=== PATIENT | male | born 1950 | race Caucasian/White ===

== ENCOUNTER 2016-11-06 23:39 | Observation (INO) | payer OTHER ==
[~2016-11-06] VITALS: Ht 185.4 cm; Wt 91.6 kg
[2016-11-06] MEDS ORDERED: MoRPHine SULFATE 2 MG/ML CARP IV STA (23:55)
[2016-11-06] MEDS ORDERED: ONDANSETRON INJ 2 MG/ML 2 ML VIAL IV STA (23:55)
[2016-11-06] MEDS ORDERED: ASPIRIN 81 MG CHEW PO STA (23:55)
--- NOTE | 2016-11-07 | EMERGENCY ROOM VISIT NOTE ---
History Report prepared by Tico: Jovanny Teague Under the Supervision of: Dr. Leonila Franks M.D. First contact with patient: 23:43 Chief Complaint: CHEST PAIN Stated Complaint: CHEST PAIN/IRRG HEARTBEAT Nursing Triage Summary: . History of Present Illness The patient is a 65 year old male who presents to the Emergency Room with complaints of constant chest pain that started tonight at approximately 2000- 2100. The pain is in the center of his chest and is sharp in nature. The pain did not respond to nitroglycerin. He did not have any aspirin today. He also complains of palpitations. The patient has a history of significant coronary artery disease. He relates his pain to angina. The patient has two coronary stents. The patient follows up with a frame gate mortiser operator who he saw earlier this week. He is in town for the week. The patient is not diabetic and is not a smoker. The patient denies shortness of breath. He is not currently on a beta octavio, he was taken off of it this week. Source of History: patient Onset: tonight Position: chest Quality: sharp Timing: constant Modifying Factors (Worsening): other (No relief from nitroglycerin) Associated Symptoms: No SOB Review of Systems See HPI for pertinent positives & negatives. A total of 10 systems reviewed and were otherwise negative. Past Medical & Surgical Medical Problems: (1) CAD (coronary artery disease) Surgical Problems: (1) Stented coronary artery Family History No pertinent family history Social History Smoking Status: Never Smoker Marital Status: Housing Status: lives with family Occupation Status: retired Current/Historical Medications Scheduled Aspirin (Aspirin Ec), 81 MG PO DAILY Atorvastatin (Lipitor), 80 MG PO DAILY Coenzyme Q10 (Ubidecarenone) (Co Q-10), 100 MG PO DAILY Fish Oil ([place]-3), 2 CAP PO DAILY Folic Acid (Folvite), 1 MG PO DAILY Glucosamine Sulfate (Glucosamine), 2,000 MG PO DAILYBB Glucosamine-Chondroitin (Osteo Bi-Flex Regular Str), 1 TAB PO DAILY Lisinopril (Prinivil), 40 MG PO DAILY Multiple Vitamin (Multi Vitamin), 1 TAB PO DAILY Ticagrelor (Brilinta), 90 MG PO BID Scheduled PRN Nitroglycerin (Nitrostat), 0.4 MG UT UD PRN for Chest Pain Allergies Coded Allergies: No Known Allergies (Unverified , 2/26/17) Physical Exam Vital Signs Date Time Temp Pulse Resp B/P Pulse Ox O2 Delivery O2 Flow Rate FiO2 11/07/16 01:45 58 16 133/81 100 Room Air 11/07/16 00:03 81 11/06/16 23:52 98 Room Air 11/06/16 23:41 36.8 90 18 169/97 97 Room Air Physical Exam Vital signs reviewed. General: Well-appearing male, in no significant distress. HEENT: No scleral icterus, PERRLA, neck supple. Atraumatic. Cardiovascular: Regular rate and rhythm, no extra sounds. Pulmonary: Clear to auscultation bilaterally, normal work of breathing. Abdomen: Soft, nontender, nondistended, positive bowel sounds. Musculoskeletal: Atraumatic, no peripheral edema. Neurologic: Patient awake alert and oriented x 3, full strength in all 4 extremities. Cranial nerves 2 through 12 grossly intact. Skin: Warm, dry, no rash Medical Decision & Procedures ER Provider Diagnostic Interpretation: X-ray results as stated below per interpretation by me. Negative Chest X-ray. CHEST ONE VIEW PORTABLE HISTORY: Atypical chest pain COMPARISON: None. FINDINGS: No pneumothorax. No pleural effusions. The heart is normal in size. The upper lung zones are clear. Bibasilar interstitial thickening with patchy densities within the left lung base. Peripheral linear densities within the right lower lung zone which may represent scarring. IMPRESSION: Bibasilar interstitial thickening with patchy densities within the left lung base. This could be chronic or due to an atypical pneumonitis. Electronically signed by: Anjel Medina M.D. 11/07/2016 7:17 AM Dictated Date/Time: 11/07/2016 7:15 AM Laboratory Results 11/06/16 00:15 Red Blood Count 4.26, Mean Corpuscular Volume 88.3, Mean Corpuscular Hemoglobin 30.5, Mean Corpuscular Hemoglobin Concent 34.6, Mean Platelet Volume 9.0, Neutrophils (%) (Auto) 55.1, Lymphocytes (%) (Auto) 29.9, Monocytes (%) (Auto) 10.2, Eosinophils (%) (Auto) 4.2, Basophils (%) (Auto) 0.4, Neutrophils # (Auto ) 2.75, Lymphocytes # (Auto) 1.49, Monocytes # (Auto) 0.51, Eosinophils # (Auto ) 0.21, Basophils # (Auto) 0.02 11/06/16 00:15 Test 11/06/16 00:15 11/07/16 00:22 White Blood Count 4.99 K/uL (4.8-10.8) Red Blood Count 4.26 M/uL (4.7-6.1) Hemoglobin 13.0 g/dL (14.0-18.0) Hematocrit 37.6 % (42-52) Mean Corpuscular Volume 88.3 fL (80-100) Mean Corpuscular Hemoglobin 30.5 pg (25-34) Mean Corpuscular Hemoglobin Concent 34.6 g/dl (32-36) Platelet Count 243 K/uL (130-400) Mean Platelet Volume 9.0 fL (7.4-10.4) Neutrophils (%) (Auto) 55.1 % Lymphocytes (%) (Auto) 29.9 % Monocytes (%) (Auto) 10.2 % Eosinophils (%) (Auto) 4.2 % Basophils (%) (Auto) 0.4 % Neutrophils # (Auto) 2.75 K/uL (1.4-6.5) Lymphocytes # (Auto) 1.49 K/uL (1.2-3.4) Monocytes # (Auto) 0.51 K/uL (0.11-0.59) Eosinophils # (Auto) 0.21 K/uL (0-0.5) Basophils # (Auto) 0.02 K/uL (0-0.2) RDW Standard Deviation 40.2 fL (36.4-46.3) RDW Coefficient of Variation 12.5 % (11.5-14.5) Immature Granulocyte % (Auto) 0.2 % Immature Granulocyte # (Auto) 0.01 K/uL (0.00-0.02) Anion Gap 10.0 mmol/L (3-11) Est Creatinine Clear Calc Drug Dose 85.4 ml/min Estimated GFR () 92.4 Estimated GFR (Non- 79.7 BUN/Creatinine Ratio 21.0 (10-20) Calcium Level 8.5 mg/dl (8.5-10.1) Total Bilirubin 0.3 mg/dl (0.2-1) Direct Bilirubin < 0.1 mg/dl (0-0.2) Aspartate Amino Transf (AST/SGOT) 37 U/L (15-37) Alanine Aminotransferase (ALT/SGPT) 37 U/L (12-78) Alkaline Phosphatase 46 U/L (45-117) Total Protein 6.7 gm/dl (6.4-8.2) Albumin 3.7 gm/dl (3.4-5.0) Bedside Troponin I 0.000 ng/ml (0-0.045) Laboratory results per my review. Medications Administered Medications (Trade) Dose Ordered Sig/Ruben Route Start Time Stop Time Status Last Admin Dose Admin Aspirin (Aspirin Chew) 324 mg NOW STAT PO 11/06/16 23:55 11/06/16 23:57 DC 11/06/16 23:55 324 MG Morphine Sulfate (MoRPHine SULFATE INJ) 2 mg NOW STAT IV 11/06/16 23:55 11/06/16 23:57 DC 11/07/16 00:18 2 MG Ondansetron HCl (Zofran Inj) 4 mg NOW STAT IV 11/06/16 23:55 11/06/16 23:57 DC 11/07/16 00:18 4 MG ECG Indication: chest pain Rate (beats per minute): 73 Rhythm: sinus with SA Findings: no acute ischemic change, no ectopy ED Course 2354: Past medical records reviewed. The patient was evaluated in room B9. A complete history and physical examination was performed. 2355: Zofran 4 mg IV, Morphine Sulfate 2 mg IV, Aspirin 324 mg PO. 0030: Spoke with Dr. Davis, [facility] Hospitalist. The patient will be evaluated. Medical Decision Differential diagnosis: Acute coronary syndrome, pulmonary embolus, aortic dissection, musculoskeletal pain, pneumonia, pleural effusion, pneumothorax This patient was evaluated and appeared to be in no significant distress. Patient was given aspirin to chew. IV access was obtained and laboratory work was drawn. The patient was placed on the cardiac surgeon. EKG was performed and reveals a sinus rhythm with sinus arrhythmia. There is no evidence of acute ischemic change. Laboratory work reveals a negative troponin. I suspect the patient is feeling palpitations secondary to recent discontinuation of beta blockers. Patient has significant coronary disease and recurrent anginal symptoms. Because of this history, patient will be evaluated by the hospitalist service for further cardiac evaluation. Patient is aware of the plan and agrees. Consults Time Called: 0020 Consulting Physician: Dr. Davis, [facility]. Returned Call: 29 29: Spoke with Dr. Davis, [facility]. The patient will be evaluated. Impression Primary Impression: Precordial chest pain Scribe Attestation The scribe's documentation has been prepared under my direction and personally reviewed by me in its entirety. I confirm that the note above accurately reflects all work, treatment, procedures, and medical decision making performed by me. Departure Information Dispostion Being Evaluated By Hospitalist Referrals No Doctor, Assigned (PCP) Patient Instructions My [facility]
[2016-11-07 00:28] LABS: BASO % 0.4 %; BASO ABS # 0.02 K/uL (0-0.2); COMPLETE YES; EOS % 4.2 %; HEMATOCRIT 37.6 % (42-52); IG% 0.2 %; LYMPH % 29.9 %; LYMPH ABS # 1.49 K/uL (1.2-3.4); MEAN CELL VOLUME 88.3 fL (80-100); MEAN CORPUSCULAR HEMOGLOBIN 30.5 pg (25-34); MEAN CORPUSCULAR HGB CONC 34.6 g/dl (32-36); MONO % 10.2 %; NEUT % 55.1 %; PLATELET COUNT 243 K/uL (130-400); RED BLOOD COUNT 4.26 M/uL (4.7-6.1); WHITE BLOOD COUNT 4.99 K/uL (4.8-10.8)
[2016-11-07] MEDS ORDERED: LISI40TA PO (00:31)
[2016-11-07] MEDS ORDERED: ATOR-26 PO (00:31)
[2016-11-07] MEDS ORDERED: GLUCTAB18 PO (00:31)
[2016-11-07] MEDS ORDERED: MULT-1027 PO (00:31)
[2016-11-07] MEDS ORDERED: GLUC10007 PO (00:31)
[2016-11-07] MEDS ORDERED: ASPI81TA28 PO (00:31)
[2016-11-07] MEDS ORDERED: TICA1TAB PO (00:31)
[2016-11-07] MEDS ORDERED: FOLI1TAB7 PO (00:32)
[2016-11-07] MEDS ORDERED: OMEG10007 PO (00:32)
[2016-11-07] MEDS ORDERED: COEN150C PO (00:32)
[2016-11-07] MEDS ORDERED: COEN100C3 PO (00:33)
[2016-11-07] MEDS ORDERED: NTRGSL/4 UT (00:33)
[2016-11-07 00:46] LABS: ALT/SGPT 37 U/L (12-78); AST/SGOT 37 U/L (15-37); BLOOD UREA NITROGEN 21 mg/dl (7-18); CALCIUM 8.5 mg/dl (8.5-10.1); CARBON DIOXIDE 29 mmol/L (21-32); CHLORIDE 104 mmol/L (98-107); GLUCOSE 110 mg/dl (70-99); POTASSIUM 3.8 mmol/L (3.5-5.1); SODIUM 143 mmol/L (136-145)
[2016-11-07 00:50] LABS: ALKALINE PHOSPHATASE 46 U/L (45-117); CKMB/CK RATIO 0.8 (0-3.0)
[2016-11-07] MEDS ORDERED: ZOLPIDEM TARTRATE 5 MG TAB PO PRN (02:15)
[2016-11-07] MEDS ORDERED: NITROGLYCERIN 0.4 MG SL PER TAB CHARGE SL PRN (02:15)
[2016-11-07] MEDS ORDERED: ONDANSETRON INJ 2 MG/ML 2 ML VIAL IV PRN (02:15)
[2016-11-07] MEDS ORDERED: ACETAMINOPHEN 325 MG TAB PO PRN (02:15)
[2016-11-07] MEDS ORDERED: IV FLUIDS COMPLETED PRN (02:30)
[2016-11-07 03:31] LABS: CKMB/CK RATIO 0.8 (0-3.0)
[2016-11-07 03:32] VITALS: BP 128/71; PULSE 63; TEMP 36.8; O2SAT 94; Ht 185.4 cm; Wt 91.6 kg
--- NOTE | 2016-11-07 03:37 | History and Physical ---
History & Physical Date & Time of Service: Nov 07, 2016 at 03:20 Chief Complaint: Chest Pain/Irrg Heartbeat Primary Care Physician: No Doctor, Assigned History of Present Illness Source: patient, spouse The patient is a 65-year-old male resident of [facility], who presents to the emergency department with complaint of constant precordial chest pain that worsened tonight around 2000- 2100 hrs. He did try to take 3 sublingual nitroglycerin without any significant improvement. He has a known history of NM , with coronary artery stents placed in 2008. His most recent catheterization was in 2014 during which he had a plaque break off and induce an NM. He has been on Ranexa in the past and most recently Brilinta. He went to see his administrative aide 5 days ago due to chest pain, and at that time his bisoprolol 2.5 mg was stopped, and his lisinopril was increased from 15-40 mg daily. He reports that his chest pain today has been more prolonged, and is the reason for his visit to the emergency department. He does walk regularly with his , and reports walking 3 miles today, and did not have any chest pain or shortness of breath. He was diagnosed with reflux via endoscopy when he lived in the [facility] [place] years ago, and reports that he was on Prilosec at that time, which he did not tolerate well, and has not been on any medication since that time. He admits to drinking a full pot of coffee daily, and reports that his water intake is very low. He has never been on any long acting nitroglycerin. His most recent stress test was this past summer and reports that it was normal. Past Medical/Surgical History Medical Problems: (1) CAD (coronary artery disease) Status: Chronic Family History No pertinent family history Social History Smoking Status: Never Smoker Smokeless Tobacco Use: No Alcohol Use: none Drug Use: none Marital Status: Housing status: lives with family Multi-Drug Resistant Organisms History of MDRO: No Allergies Coded Allergies: No Known Allergies (Unverified , 11/07/16) Home Medications Scheduled Aspirin (Aspirin Ec), 81 MG PO DAILY Atorvastatin (Lipitor), 80 MG PO DAILY Coenzyme Q10 (Ubidecarenone) (Co Q-10), 100 MG PO DAILY Fish Oil ([place]-3), 2 CAP PO DAILY Folic Acid (Folvite), 1 MG PO DAILY Glucosamine Sulfate (Glucosamine), 2,000 MG PO DAILYBB Glucosamine-Chondroitin (Osteo Bi-Flex Regular Str), 1 TAB PO DAILY Lisinopril (Prinivil), 40 MG PO DAILY Multiple Vitamin (Multi Vitamin), 1 TAB PO DAILY Ticagrelor (Brilinta), 90 MG PO BID Scheduled PRN Nitroglycerin (Nitrostat), 0.4 MG UT UD PRN for Chest Pain Review of Systems The patient denies cough, lower extremity swelling, vision change, hearing change, sore throat, fevers, chills, sweats, weight change, fatigue, nausea, vomiting, abdominal pain, pelvic pain, blood in urine or stool, dysuria, urinary frequency or urgency, lightheadedness, dizziness, headache, memory loss , rash, abnormal bruising or bleeding, imbalance, focal or generalized weakness , numbness or tingling in arms or legs, arthralgias or myalgias, back or neck pain, night sweats, or allergy symptoms. The review of systems is otherwise negative other than for that already noted above, and at least 10 systems have been reviewed. Physical Exam Vital Signs Date Time Temp Pulse Resp B/P Pulse Ox O2 Delivery O2 Flow Rate FiO2 11/07/16 01:45 58 16 133/81 100 Room Air 11/07/16 00:03 81 11/06/16 23:52 98 Room Air 11/06/16 23:41 36.8 90 18 169/97 97 Room Air The patient is awake, well-developed and adequately nourished, alert and oriented 3, normocephalic and atraumatic, lying in bed and in no acute distress. HEENT--PERRL, EOMI, mucous membranes and oropharynx dry. Neck--supple, no JVD or bruits, thyroid normal, trachea midline, no adenopathy. Heart--normal S1 and S2, no extra beats, no murmurs, rubs or gallops. Lungs--diminished throughout, no respiratory distress, no accessory muscle use. Abdomen--normal bowel sounds and soft, nontender and nondistended, no hernias or masses, no organomegaly. Extremities--no cyanosis, clubbing or edema. There are good distal pulses b/l. Dermatologic--normal skin turgor, normal color, warm and dry, no abnormal lymph nodes, no rash. Neurologic--cranial nerves II through XII grossly intact, motor and sensory examination normal. Rheumatologic--normal range of motion, nontender, muscles and joints. Psychiatric--normal affect. Diagnostics Laboratory Results Results Past 24 Hours Test 11/07/16 00:22 11/07/16 02:15 11/07/16 02:46 Range/Units Bedside Troponin I 0.000 0-0.045 ng/ml Creatine Kinase MB Ratio 0-3.0 CXR normal EKG EKG shows normal sinus rhythm with mild sinus arrhythmia at 73 bpm, and there are no acute ST-T changes. Impression Assessment and Plan Precordial chest pain/CAD/LAD stents 2 in 2008/embolic NM during most recent cardiac catheterization in 2014--the patient be admitted to the telemetry unit, for serial cardiac enzymes, cardiac rhythm monitoring and a 2-D echocardiogram Dopplers. His baseline heart rate is in the upper 50s, which led to the bisoprolol 2.5 mg being discontinued recently, and increasing his lisinopril from 15-40 mg due to elevated blood pressure, both which occurred 5 days ago. We will consult cardiology to see patient in the a.m. We'll continue enteric- coated aspirin 81 mg by mouth daily, lisinopril 40 mg by mouth daily, and Brilinta 90 mg by mouth twice a day. Epigastric pain/precordial chest pain--differential for this patient includes asthma/bronchospasm/acute coronary syndrome/GERD/esophageal spasm. He reports that he has never been short of breath when walking with his , and she corroborates this. The patient drinks a small amount of water, and drinks a pot of coffee daily. The most likely cause of this patient's symptoms is GI. I 've asked him to increase his water intake significantly, and to gradually decrease his caffeine intake, the plan of which his agrees upon and has encouraged him to do so in the past. He has been intolerant of PPIs in the past , and so for now we'll place him on famotidine 20 mg by mouth twice a day. But we all would rather him adjust his water intake and caffeine intake as noted above as opposed to taking more medications. Hypercholesterolemia--continue atorvastatin 80 mg by mouth daily, CoQ10 100 mg by mouth daily, and folic acid 1 mg by mouth daily. We'll continue fish oil 2000 mg by mouth daily for now, but this may also be contributing to reflux type symptoms and may need to be held in the future. Level of Care Telemetry Advanced Directives Existing Advance Directive: No Existing Living Will: No Existing Power of Vp [employer] Media And Crm: No Resuscitation Status FULL RESUSCITATION VTE Prophylaxis VTE Risk Assessment Done? Y/N: Yes Risk Level: Moderate Given or contraindicated: SCD's Social Service Consult None Apply
--- NOTE | 2016-11-07 07:18 | DIAGNOSTIC IMAGING REPORT ---
CHEST ONE VIEW PORTABLE HISTORY: Atypical chest pain COMPARISON: None. FINDINGS: No pneumothorax. No pleural effusions. The heart is normal in size. The upper lung zones are clear. Bibasilar interstitial thickening with patchy densities within the left lung base. Peripheral linear densities within the right lower lung zone which may represent scarring. IMPRESSION: Bibasilar interstitial thickening with patchy densities within the left lung base. This could be chronic or due to an atypical pneumonitis. Electronically signed by: Anjel Medina M.D. 11/07/2016 7:17 AM Dictated Date/Time: 11/07/2016 7:15 AM
[2016-11-07 07:48] VITALS: BP 118/69; PULSE 76; TEMP 36.2; O2SAT 95
[2016-11-07] MEDS ORDERED: NURSING VERBAL MED ORDER ONE (08:00)
[2016-11-07] MEDS ORDERED: FAMOTIDINE 20 MG TAB PO SCH (09:00)
[2016-11-07] MEDS ORDERED: MULTIVITAMIN TAB PO SCH (09:00)
[2016-11-07] MEDS ORDERED: ASPIRIN 81 MG ECTAB PO SCH (09:00)
[2016-11-07] MEDS ORDERED: NON-FORMULARY MEDICATION (Coenzyme Q10 (Ubidecarenone) (Co Q-10) 100 MG) PO SCH (09:00)
[2016-11-07] MEDS ORDERED: OMEGA-3 (PURIFIED FISH OIL) 1 GM CAP PO SCH (09:00)
[2016-11-07] MEDS ORDERED: TICAGRELOR 90 MG TAB PO SCH (09:00)
[2016-11-07] MEDS ORDERED: LISINOPRIL 40 MG TAB PO SCH (09:00)
[2016-11-07] MEDS ORDERED: ATORVASTATIN 40 MG TAB PO SCH ×2 (09:00→21:00)
--- NOTE | 2016-11-07 09:11 | ECHOCARDIOGRAM REPORT ---
*NOTICE TO RECEIVING [employer]Y This information is strictly Confidential and protected under [place] law. [place] law prohibits you from making any further disclosure of this information unless further disclosure is expressly permitted by the written consent of the person to whom it pertains or is authorized by law. A general authorization for the release of medical or other information is not sufficient for this purpose. Hospital accepts no responsibility if the information is made available to any other person, INCLUDING THE PATIENT. Interpretation Summary * Name: ROSALBA MATHEW Study Date: 11/07/2016 06:49 AM BP: 128/71 mmHg * Patient Location: [facility] HR: 50 * : 1950 (M/d/yyyy) Gender: Male Height: 73 in * Age: 65 yrs Ethnicity: CA Weight: 205 lb * Ordering Physician: Andrew Davis * Referring Physician: Self, Referred * Performed By: Ja Crystal RDCS * * Reason For Study: Chest pain * BSA: 2.2 m2 * -- Conclusions -- * The left ventricle is normal in size. * There is normal left ventricular wall thickness. * Left ventricular systolic function is normal. * LVEF 70% * The left ventricular wall motion is normal. * The right ventricle is normal in size and function. * The right ventricular systolic function is normal as assessed by tricuspid annular plane systolic excursion (TAPSE) (normal >1.5 cm). * Aortic valve sclerosis mild, without significant aortic valvular stenosis. * Trileaflet aortic valve. * Grade I diastolic dysfunction, (abnormal relaxation pattern). Procedure Details * A complete two-dimensional transthoracic echocardiogram was performed (2D, M-mode, Doppler and color flow Doppler). * The study was technically adequate. Left Ventricle * The left ventricle is normal in size. * There is normal left ventricular wall thickness. * Left ventricular systolic function is normal. * LVEF 70% * The left ventricular wall motion is normal. Right Ventricle * The right ventricle is normal in size and function. * The right ventricular systolic function is normal as assessed by tricuspid annular plane systolic excursion (TAPSE) (normal >1.5 cm). Atria * Borderline left atrial enlargement. * Borderline right atrial enlargement. Mitral Valve * The mitral valve leaflets appear normal. There is no evidence of stenosis, fluttering, or prolapse. * There is trace mitral regurgitation. Tricuspid Valve * The tricuspid valve is normal. * No tricuspid regurgitation. Aortic Valve * Aortic valve sclerosis mild, without significant aortic valvular stenosis. * Trileaflet aortic valve. Pulmonic Valve * The pulmonic valve is not well visualized. Great Vessels * The aortic root is normal size. Pericardium/Pleural * There is no pericardial effusion. Great Vessels * Normal size IVC with abnormal collapse Left Ventricular Diastolic Function * Grade I diastolic dysfunction, (abnormal relaxation pattern). MMode 2D Measurements and Calculations IVSd 0.91 cm IVSs 1.4 cm LVIDd 5.9 cm LVIDs 3.4 cm LVPWd 0.99 cm LVPWs 1.6 cm IVS/LVPW 0.91 FS 42.3 % EDV(Teich) 174.6 ml ESV(Teich) 47.9 ml EF(Teich) 72.6 % EDV(cubed) 207.5 ml ESV(cubed) 39.8 ml EF(cubed) 80.8 % % IVS thick 57.1 % % LVPW thick 56.5 % LV mass(C)d 226.1 grams LV mass(C)dI 104.0 grams/m\S\2 LV mass(C)s 185.1 grams LV mass(C)sI 85.1 grams/m\S\2 SV(Teich) 126.7 ml SI(Teich) 58.2 ml/m\S\2 SV(cubed) 167.7 ml SI(cubed) 77.1 ml/m\S\2 Ao root diam 3.2 cm Ao root area 7.9 cm\S\2 ACS 1.9 cm LA dimension 4.8 cm asc Aorta Diam 3.2 cm LA/Ao 1.5 LVOT diam 2.1 cm LVOT area 3.6 cm\S\2 LVAd ap4 27.4 cm\S\2 LVLd ap4 8.7 cm EDV(MOD-sp4) 71.0 ml LVAs ap4 13.6 cm\S\2 LVLs ap4 7.1 cm ESV(MOD-sp4) 21.0 ml EF(MOD-sp4) 70.4 % LVAd ap2 26.7 cm\S\2 LVLd ap2 8.8 cm EDV(MOD-sp2) 67.0 ml LVAs ap2 13.1 cm\S\2 LVLs ap2 7.2 cm ESV(MOD-sp2) 20.0 ml EF(MOD-sp2) 70.1 % SV(MOD-sp4) 50.0 ml SI(MOD-sp4) 23.0 ml/m\S\2 SV(MOD-sp2) 47.0 ml SI(MOD-sp2) 21.6 ml/m\S\2 Doppler Measurements and Calculations MV E max denia 93.8 cm/sec MV A max denia 98.1 cm/sec MV E/A 0.96 MV dec time 0.24 sec Ao V2 max 154.4 cm/sec Ao max PG 9.5 mmHg Ao max PG (full) 4.5 mmHg FAY(V,A) 2.6 cm\S\2 FAY(V,D) 2.6 cm\S\2 LV V1 max PG 5.1 mmHg LV V1 max 112.4 cm/sec PA V2 max 117.3 cm/sec PA max PG 5.5 mmHg PI end-d denia 73.8 cm/sec
[2016-11-07 11:09] LABS: CKMB/CK RATIO 0.9 (0-3.0)
[2016-11-07 12:08] VITALS: BP 113/71; PULSE 52; TEMP 36.6; O2SAT 96
--- NOTE | 2016-11-07 12:08 | Discharge Instructions ---
Discharge Instructions Admission Reason for Admission: Precordial Chest Pain, Stented Coronary Artery Discharge Discharge Diagnosis / Problem: Precordial chest pain, History of coronary artery disease Discharge Goals Goal(s): Decrease discomfort, Improve function, Increase independence, Improve disease control, Diagnostic testing, Therapeutic intervention, Prevent Disease Progression Activity Recommendations Activity Limitations: resume your previous activity Lifting Limitations: no more than 5 pounds Exercise/Sports Limitations: none Shower/Bathe: no limitations . Instructions / Follow-Up Instructions / Follow-Up Patient to be discharged home Instructed patient unlikely to have cardiac cause for chest pain Likely from strenuous exercise Please limit any heavy lifting or heavy exercise for next couple days If worsening chest pain please report to ER Current Hospital Diet Patient's current hospital diet: AHA Diet (Heart Healthy) Discharge Diet Recommended Diet: AHA Diet (Heart Healthy) Pending Studies Studies pending at discharge: no Medical Emergencies . Who to Call and When: Medical Emergencies: If at any time you feel your situation is an emergency, please call 911 immediately. . Non-Emergent Contact Non-Emergency issues call your: Primary Care Provider Call Non-Emergent contact if: your pain is worsening . . "Provider Documentation" section prepared by Franki Reagan. VTE Core Measure Inpt VTE Proph given/why not?: SCD's
--- NOTE | 2016-11-07 12:10 | Discharge Summary ---
Discharge Summary Date of Service Nov 07, 2016. Discharge Summary Admission Date: Nov 07, 2016 at 02:11 Discharge Date: Nov 07, 2016 Discharge Disposition: Home Principal Diagnosis: Chest pain Medication Reconciliation Continued Medications: Aspirin (Aspirin Ec) 81 Mg Tab 81 MG PO DAILY Atorvastatin (Lipitor) 80 Mg Tab 80 MG PO DAILY, TAB Coenzyme Q10 (Ubidecarenone) (Co Q-10) 100 Mg Cap 100 MG PO DAILY Fish Oil ([place]-3) 1 Ea Cap 2 CAP PO DAILY, CAP Folic Acid (Folvite) 1 Mg Tab 1 MG PO DAILY, TAB Glucosamine Sulfate (Glucosamine) 1,000 Mg Tab 2000 MG PO DAILYBB, TAB Glucosamine-Chondroitin (Osteo Bi-Flex Regular Str) 1 Tab Tab 1 TAB PO DAILY Lisinopril (Prinivil) 40 Mg Tab 40 MG PO DAILY, TAB Multiple Vitamin (Multi Vitamin) 1 Tab Tab 1 TAB PO DAILY Nitroglycerin (Nitrostat) 0.4 Mg Tab 0.4 MG UT UD PRN for Chest Pain, BTL Ticagrelor (Brilinta) 90 Mg Tab 90 MG PO BID Discharge Exam Review of Systems: Constitutional: No chills, No fever Respiratory: No cough, No dyspnea on exertion, No shortness of breath, No sputum, No wheezing Cardiovascular: No chest pain, No edema, No orthopnea, No palpitations Abdomen: No diarrhea, No nausea, No pain, No vomiting Musculoskeletal: No joint pain, No muscle pain Genitourinary - Male: No dysuria, No hematuria Neurologic: No paralysis, No weakness Physical Exam: General Appearance: WD/WN, no apparent distress Neck: supple, no adenopathy Respiratory/Chest: chest non-tender, lungs clear, normal breath sounds Cardiovascular: regular rate, rhythm, no edema, no gallop Abdomen / GI: non tender, soft Neurologic/Psychiatric: alert, oriented x 3 Hospital Course Precordial chest pain/CAD/LAD stents 2 in 2008/embolic DC during most recent cardiac catheterization in 2014--the patient be admitted to the telemetry unit, for serial cardiac enzymes, cardiac rhythm monitoring and a 2-D echocardiogram Dopplers. His baseline heart rate is in the upper 50s, which led to the bisoprolol 2.5 mg being discontinued recently, and increasing his lisinopril from 15-40 mg due to elevated blood pressure, both which occurred 5 days ago. ECHO EF 70%, no WMA, chest pain resolved, troponins x 3 sets negative. No further intervention needed at this time. Likely cause is costochondritis Epigastric pain/precordial chest pain--differential for this patient includes asthma/bronchospasm/acute coronary syndrome/GERD/esophageal spasm. He reports that he has never been short of breath when walking with his , and she corroborates this. The patient drinks a small amount of water, and drinks a pot of coffee daily. The most likely cause of this patient's symptoms is GI. I 've asked him to increase his water intake significantly, and to gradually decrease his caffeine intake, the plan of which his agrees upon and has encouraged him to do so in the past. He has been intolerant of PPIs in the past , and so for now we'll place him on famotidine 20 mg by mouth twice a day. But we all would rather him adjust his water intake and caffeine intake as noted above as opposed to taking more medications. Hypercholesterolemia--continue atorvastatin 80 mg by mouth daily, CoQ10 100 mg by mouth daily, and folic acid 1 mg by mouth daily. We'll continue fish oil 2000 mg by mouth daily for now, but this may also be contributing to reflux type symptoms and may need to be held in the future. Total Time Spent: Greater than 30 minutes This includes examination of the patient, discharge planning, medication reconciliation, and communication with other providers. Discharge Instructions Please refer to the electronic Patient Visit Report (Discharge Instructions) for additional information.
[2016-11-07 12:30] VITALS: BP 113/71; PULSE 52; TEMP 36.6; O2SAT 96
--- NOTE | 2016-11-08 07:54 | CARDIOLOGY CONSULTATION ---
DATE OF CONSULTATION: 11/07/2016 REQUESTING PHYSICIAN: Dr. Davis. IMPACT HAMMER OPERATOR: Leonardo Virgen DO of [facility]. REASON FOR CONSULTATION: Coronary artery disease and chest discomfort. Dear Dr. Davis: Thank you for requesting cardiology consultation. It was a pleasure of seeing tSeven today in consultation with regards to his known coronary artery disease and recurrent chest discomfort. Although, I do not have all of his records, in 2008, he had stents placed in the left anterior descending artery. He describes the right coronary artery as small and diffusely diseased and he has had 2 repeat cardiac catheterizations in 2010 and 2014 and it sounds like during IVUS interrogation of the lesion just before the LAD, he did have plaque rupture, which did induce myocardial infarction. It does not sound like he underwent recurrent stenting at that time. He is active. He walks 3 miles almost every day. He notes he has been doing that all weekend and even did yesterday without any difficulty. He notes that his daughters, where they have been visiting, she has stairs and he has been up and down the stairs without any issues. On a regular basis, he consumes upwards of 1-2 pots of coffee on a regular basis and he notes he has been drinking more coffee of late. Additionally, they ate at last night, he had a spicy meal and then he went to lie down. Shortly after he laid down, he started noticing symptoms of discomfort in his chest. It was not like his previous anginal symptoms. There was no radiation to his neck, jaw, back or arm. He was not short of breath with it. He was not diaphoretic with it. He describes a stress test this past summer, which was normal. He denies any lightheadedness, dizziness, presyncope, or syncope. He denies any decline in his exercise capacity. His appetite is stable. His weight is stable. He does bruise easily, although he notes that it is improved on Brilinta compared to Plavix. The rest of review of systems is otherwise negative. PAST MEDICAL HISTORY: 1. Coronary artery disease, status post angioplasty and stenting of the LAD in 2008. 2. Repeat cardiac catheterization in 2010 without intervention. 3. Repeat cardiac catheterization in 2014, for which he had plaque rupture, but it sounds like no intervention was done. 4. History of bradycardia with recent discontinuation of his bisoprolol. 5. Hypertension. 6. Hyperlipidemia. OUTPATIENT MEDICATIONS: Reviewed in detail. ALLERGIES: No known drug allergies. SOCIAL HISTORY: He is a lifetime nonsmoker. He is and lives with his . FAMILY HISTORY: Noncontributory. PHYSICAL EXAMINATION: GENERAL: He is awake, alert, and oriented x3, in no acute distress. He is a well-appearing male, who looks his stated age. VITAL SIGNS: His heart rate is 76, blood pressure 118/69, respirations 16 and sats 95% on room air. HEENNT: 2+ carotid upstrokes. No evidence of carotid bruits. Jugular venous pressure appeared normal. Sclerae is anicteric. Hearing is normal. LUNGS: Clear to auscultation bilaterally. No rales, rhonchi or wheezing. HEART: Regular rate and rhythm. Appreciable murmurs, rubs or gallops. ABDOMEN: Soft, nontender, and nondistended. Positive bowel sounds. EXTREMITIES: No clubbing, cyanosis or edema. SKIN: No ecchymosis or bruising. PSYCHIATRIC: His affect appeared appropriate. Chest x-ray, bibasilar interstitial thickening, possibly chronic. LABORATORY STUDIES: His troponins are negative x3. Sodium 143, potassium 3.8, chloride 104, and CO2 of 29. His AST and ALT are normal. His BUN was 21 with a creatinine of 1. Hemoglobin 13 and platelet count 243. EKG normal sinus rhythm. Normal ECG. Echocardiogram, normal biventricular size and function, type 1 diastolic dysfunction, no wall motion abnormalities, EF 70%. IMPRESSION: 1. Atypical chest discomfort, which sounds like esophageal reflux disease, exacerbated by the fact that he takes aspirin on an empty stomach. He consumes large quantities of coffee including 1-2 pots on a daily basis as well as he had a spicy meal and then laid down. 2. Coronary artery disease as described above. 3. Hyperlipidemia. 4. Hypertension. 5. Bradycardia. As I discussed with the patient and in agreement with you, he should be on H2 blockers, Pepcid 20 mg b.i.d. He feels significantly better this morning. He has no reproducible chest discomfort. I had discussed with him that he should take aspirin and his Brilinta with food and he needs to cut back on his coffee consumption. Additionally, we discussed raising the head of his bed at night and avoid eating late at night and other foods that will exacerbate his acid reflux. His functional capacity has been stable. There is nothing to suggest progressive anginal symptoms. His blood pressure here is well controlled and his heart rate is bradycardic. His heart rate at times is bradycardic because he is in good shape as he exercises almost every day. Thank you for allowing us to participate in his care. He can be discharged and follow up with his primary care provider.
== END 2016-11-07 12:51 | disposition home or self-care (01) ==
LOC: ENRESERVDT → ENRESERVTM → C.EDB 23:40 → C.2T 11-07 02:11
PROVIDERS: ADMIT Hospitalist; ATTEND Hospitalist
DX: R07.89 Other chest pain (principal); R10.13 Epigastric pain; R00.1 Bradycardia, unspecified; E78.00 Pure hypercholesterolemia, unspecified; I25.10 Atherosclerotic heart disease of native coronary artery without angina pectoris; I10 Essential (primary) hypertension; E78.5 Hyperlipidemia, unspecified; I25.2 Old myocardial infarction; Z98.61 Coronary angioplasty status; Z79.82 Long term (current) use of aspirin

== ENCOUNTER 2022-03-29 12:40 | Inpatient (IN) ==
--- NOTE | 2022-03-29 13:35 | Emergency Department Note ---
Impression & Plan Headache ED Provider Note INFORMANT: Patient and family ED PROVIDER(S): Hiram Garg MD CHIEF COMPLAINT: Headache PLAN: Disposition: Admitted Condition: Good Outpatient prescription management: none Referral: None patient presented because of recurrent headache. He was seen in the emergency department MEDICAL DECISION [facility]KIN days ago and was diagnosed with a spinal headache. Neurology and anesthesiology recommended conservative management at that point. Patient did well with the following 2 days. Symptoms returned last night. He had an IV established. His blood work was unremarkable. The patient underwent CT imaging and there was no acute findings noted. He was treated with IV Dilaudid and hydrated. The patient was still having discomfort. He was given Toradol and morphine. I did discuss the case with Dr. Waite of [facility] neurology. He felt that the patient would need MR imaging as well as neurology consultation here before he would recommend blood patch. I did discuss this with the patient and family. They were in agreement. Consultation was made with the [facility]. Patient was evaluated in the ER for further management. Triage Nursing notes reviewed and agree them. Vital Signs: reviewed and remarkable for no significant abnormalities Differential diagnosis: Spinal headache, Migraine headache, meningitis, sinusitis, ICH, SAH, infection, tumor, headache, sinus thrombosis, arterial dissection, UTI, as well as other pathologies. Diagnostics interpreted by me: ECG: none Cardiac Monitoring: Cardiac monitoring ordered by me: The patient was placed on continuous cardiac monitoring and observed. It revealed a bradycardia at 56 bpm. Imaging studies: Head CT: A noncontrast CT scan of the head was performed and was negative for tumor, fracture, intracranial hemorrhage, or other acute pathology. Chronic changes noted. HPI: The patient is a 71 year old male who presents to the Emergency Room with complaints of headache. This started 3 days ago and is attributed to a spinal done 4 days ago. The patient was seen 3 days ago and after consultation with Neurology and Anesthesia IV conservative treatment recommended over blood patch. The patient also notes the following associated symptoms, disorientation, transient nausea, low back pain, urinary frequency. The patient has tried tylenol and ibuprofen for relieving factors. Current pain is rated as 6/10. Pt denies LOC, fevers, chills, diaphoresis, visual changes, neck pain, chest pain, breathing difficulties, vomiting, abdominal pain, melena, hematochezia, numbness, weakness, lymphadenopathy, rash, or other complaints. ROS: See above HPI for pertinent positives & negatives. A total of 10 systems reviewed and were otherwise negative. 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 Oropharynx unremarkable. EYES: Normal conjunctiva. Sclera non-icteric. PERRLA, EOMI NECK: Inspection normal. Non-tender. Supple. No nuchal rigidity. FROM. No masses. RESPIRATORY: Clear to auscultation. No wheezes. No rales. Normal respiratory effort. CARDIAC: Normal rate. Normal rhythm. No murmurs. No rubs. Extremities warm and well perfused. Pulses equal. No JVD. GI: Soft, non-distended. No tenderness to palpation. No rebound or guarding. No masses. RECTAL: Deferred. MUSCULOSKELETAL: Atraumatic. Chest examination reveals no tenderness. The back is symmetrical on inspection without obvious abnormality. There is no CVA tenderness to palpation. No joint edema. LOWER EXTREMITIES: Calves are equal size bilaterally and non-tender. No edema. No discoloration. NEURO: Slow to answer at times but otherwise normal sensorium. No sensory or motor deficits noted. SKIN: No rash or jaundice noted. Hiram Garg MD Past Med/Surg History Medical History History of atrial fibrillation CARDIAC ABLATION 2019 Hx of esophageal reflux Hyperlipidemia Hypertension Migraines Myocardial infarction 2008 On anticoagulant therapy Osteoarthritis Parkinson's disease NEW DX 09/03/21 Seasonal allergies Surgical History H/O cardiac radiofrequency ablation 2019 History of brain shunt 2009--posterior benign cyst removal, "a piece of tubing sits at site to keep cyst from regrowing" @ [facility] History of cardiac cath 2014-no stents-- follows with Dr. Valdez History of cataract surgery RT/LEFT History of tonsillectomy and adenoidectomy Hx of arthroscopy of left knee Hx of arthroscopy of right knee Hx of colonoscopy Hx of esophagogastroduodenoscopy Hx of heart artery stent 2009 x 2 (DONE AT [place]) FOLLOWED BY DR. HARTLEY Hx of vitrectomy RT [place] teeth removed Family History Father Coronary heart disease Heart disease Peripheral arterial disease Hypertension Mother Allergies Hypertension Cardiomyopathy Brother History of kidney cancer Cancer Grandfather Stroke Uncle Myocardial infarction Other No family history of adverse response to anesthesia Denies family history of Ovarian cancer Prostate cancer Diabetes Breast cancer Lung cancer Colorectal cancer Asthma Social History Smoking Status: Current some day smoker Tobacco Type: Smokeless Tobacco (Dip or Chew) packs per day: 0.5; Years Smoked: 5; Second Hand Exposure: No; Hx Alcohol Use: Yes Alcohol type: beer, wine and hard liquor Alcohol Intake Frequency: 4 or More x per/Week Alcohol Intake Frequency Comment: 1-3 drinks 5 days a week Hx Substance Use: No Preferred Language: Kyrgyz Communication Ability: Effective Visual Impairment: Limited Hearing Ability: Use of Hearing Aid Roll Bucker Required: No Beliefs That Will Affect Care: None marital status: Current Living Situation: Spouse current occupational status: retired 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 How many Children do You have: 2 Feels Safe at Home: Yes Childhood Exposure to Second-Hand Smoke: Yes caffeine: Yes Dental Care, Regularly: Yes Physical Activity Frequency: Daily Seatbelt Use: always Sunscreen Use: Yes Assistive Devices: Glasses Allergies Allergies Allergy/AdvReac Type Severity Reaction Status Date / Time acetazolamide AdvReac Severe Tachycardia Verified 03/26/22 20:56 amlodipine AdvReac Severe hypotension Verified 03/26/22 20:56 Home Meds Home Medications Medication Instructions Recorded Confirmed aspirin 81 mg chewable tablet 81 mg PO QAM 08/10/18 03/29/22 coenzyme Q10 100 mg capsule 100 mg PO QAM 08/10/18 03/29/22 glucosamine-chondroitin 250 mg-200 2 tab PO QAM 08/10/18 03/29/22 mg tablet (Osteo Bi-Flex) loratadine 10 mg tablet 10 mg PO DAILY PRN allergies 08/10/18 03/29/22 multivitamin 1 tab PO QAM 08/10/18 03/29/22 omega 3-nis-zps-fish oil 1,000 mg 2 cap PO QAM 01/29/20 03/29/22 (120 mg-180 mg) capsule (Fish Oil) psyllium husk 0.4 gram capsule 0.4 g PO QPM 08/26/20 03/29/22 (Metamucil) acetaminophen 650 mg 1,300 mg PO Q8 PRN Pain 07/06/21 03/29/22 tablet,extended release nitroglycerin 0.4 mg sublingual 0.4 mg sublingual Q5M PRN Chest 07/06/21 03/29/22 tablet Pain carbidopa 25 mg-levodopa 100 mg 1 tab PO TID 09/23/21 03/29/22 tablet lisinopril 10 mg tablet 10 mg PO QAM 11/18/21 03/29/22 carbidopa ER 50 mg-levodopa 200 mg 1 tab PO HS 03/26/22 03/29/22 tablet,extended release ibuprofen 400 mg tablet 400 mg PO Q8H PRN Pain 03/29/22 03/29/22 Previous Rx's Medication Instructions Recorded apixaban 5 mg tablet (Eliquis) 5 mg PO BID #180 tabs 09/13/19 atorvastatin 80 mg tablet 80 mg PO PM #90 tabs 02/13/20 valacyclovir 1 gram tablet 2,000 mg PO Q12H PRN cold sores 03/10/21 #30 tabs Results & Data (ED) Vital Signs Vital Signs - 24 hr 03/29/22 12:50 03/29/22 14:07 03/29/22 14:07 Temperature 36.8 C Temperature Source Temporal Artery Scan Pulse Rate 80 62 Pulse Rate [Radial] 60 Pulse Rate from SpO2 Sensor Pulse Rhythm Regular Pulse Rhythm [Radial] Regular Pulse Strength [Radial] Normal Respiratory Rate 18 16 16 Respiratory Effort / Characteristics Non-Labored Non-Labored Respiratory Depth Normal Normal Respiratory Pattern Regular Blood Pressure 153/98 H Blood Pressure [Left Arm] 152/89 H Blood Pressure Mean 116 Blood Pressure Mean [Left Arm] 110 Blood Pressure Position Sitting Blood Pressure Position [Left Arm] Lying Pulse Oximetry 96 98 94 Oxygen Delivery Method Room Air Room Air Room Air Sepsis Recent Fever Within 48 Hours No Sepsis New/Unexplained Change in Mental Status No Sepsis Action Taken by Nursing No Action Required 03/29/22 15:00 03/29/22 15:30 03/29/22 16:00 Temperature Temperature Source Pulse Rate Pulse Rate [Radial] Pulse Rate from SpO2 Sensor Pulse Rhythm Pulse Rhythm [Radial] Pulse Strength [Radial] Respiratory Rate Respiratory Effort / Characteristics Respiratory Depth Respiratory Pattern Blood Pressure 149/81 H 141/79 H 155/89 H Blood Pressure [Left Arm] Blood Pressure Mean 103 99 111 Blood Pressure Mean [Left Arm] Blood Pressure Position Blood Pressure Position [Left Arm] Pulse Oximetry Oxygen Delivery Method Sepsis Recent Fever Within 48 Hours Sepsis New/Unexplained Change in Mental Status Sepsis Action Taken by Nursing 03/29/22 16:29 03/29/22 16:30 03/29/22 16:30 Temperature Temperature Source Pulse Rate 58 L Pulse Rate [Radial] Pulse Rate from SpO2 Sensor 58 L Pulse Rhythm Pulse Rhythm [Radial] Pulse Strength [Radial] Respiratory Rate Respiratory Effort / Characteristics Respiratory Depth Respiratory Pattern Blood Pressure 162/88 H Blood Pressure [Left Arm] Blood Pressure Mean 112 Blood Pressure Mean [Left Arm] Blood Pressure Position Blood Pressure Position [Left Arm] Pulse Oximetry 96 97 Oxygen Delivery Method Room Air Room Air Sepsis Recent Fever Within 48 Hours Sepsis New/Unexplained Change in Mental Status Sepsis Action Taken by Nursing 03/29/22 16:45 03/29/22 17:00 03/29/22 17:15 Temperature Temperature Source Pulse Rate 57 L 61 54 L Pulse Rate [Radial] Pulse Rate from SpO2 Sensor Pulse Rhythm Pulse Rhythm [Radial] Pulse Strength [Radial] Respiratory Rate 18 16 12 Respiratory Effort / Characteristics Respiratory Depth Respiratory Pattern Blood Pressure Blood Pressure [Left Arm] Blood Pressure Mean Blood Pressure Mean [Left Arm] Blood Pressure Position Blood Pressure Position [Left Arm] Pulse Oximetry 94 96 97 Oxygen Delivery Method Room Air Room Air Room Air Sepsis Recent Fever Within 48 Hours Sepsis New/Unexplained Change in Mental Status Sepsis Action Taken by Nursing 03/29/22 17:30 03/29/22 17:45 03/29/22 18:00 Temperature Temperature Source Pulse Rate 55 L 59 L 59 L Pulse Rate [Radial] Pulse Rate from SpO2 Sensor Pulse Rhythm Pulse Rhythm [Radial] Pulse Strength [Radial] Respiratory Rate 14 16 12 Respiratory Effort / Characteristics Respiratory Depth Respiratory Pattern Blood Pressure Blood Pressure [Left Arm] Blood Pressure Mean Blood Pressure Mean [Left Arm] Blood Pressure Position Blood Pressure Position [Left Arm] Pulse Oximetry 97 98 97 Oxygen Delivery Method Room Air Room Air Room Air Sepsis Recent Fever Within 48 Hours Sepsis New/Unexplained Change in Mental Status Sepsis Action Taken by Nursing Laboratory Data Result diagrams: 03/29/22 13:42 03/29/22 13:42 Lab Results 03/29/22 03/29/22 03/29/22 Range/Units 13:42 13:42 13:42 WBC 7.50 (4.8-10.8) K/ul RBC 4.54 L (4.63-6.08) M/uL Hgb 14.1 (14.0-18.0) g/dl Hct 39.7 L (40.1-51.0) % MCV 87.4 (80.0-100.0) fL MCH 31.1 (25.0-34.0) pg MCHC 35.5 (32.0-36.0) g/dL RDW Std Deviation 37.9 (36.4-46.3) fL RDW Coeff of Marissa 11.9 (11.5-14.5) % Plt Count 269 (130-400) K/uL MPV 9.2 L (9.4-12.4) fL Immature Gran % (Auto) 0.1 % Neut % (Auto) 79.5 % Lymph % (Auto) 8.7 % [place] % (Auto) 10.5 % Eos % (Auto) 0.9 % Baso % (Auto) 0.3 % Neut # (Auto) 5.96 (1.4-6.5) K/uL Lymph # (Auto) 0.65 L (1.2-3.4) K/uL [place] # (Auto) 0.79 (0.24-0.82) K/uL Eos # (Auto) 0.07 (0-0.50) K/uL Baso # (Auto) 0.02 (0-0.2) K/uL Immature Gran # (Auto) 0.01 (0.00-0.02) K/uL ESR (0-20) mm/hr PT 10.9 (9.0-12.0) Seconds INR 1.0 (0.9-1.1) APTT 25.7 (21.0-31.0) Seconds PTT Ratio 0.9 Sodium 135 L (136-145) mmol/L Potassium 3.6 (3.5-5.1) mmol/L Chloride 100 (98-107) mmol/L Carbon Dioxide 29 (21-32) mmol/L Anion Gap 6 (3-11) BUN 11 (6-23) mg/dl Creatinine 0.78 (0.6-1.4) mg/dl Est Cr Clr Drug Dosing 65.7 ml/min Est GFR ( Amer) 106.7 ml/min Est GFR (Non-Af Amer) 92.1 ml/min BUN/Creatinine Ratio 14.1 (10-20) Glucose 85 (70-99(Fasting)) mg/dl Calcium 8.7 (8.5-10.1) mg/dl Total Bilirubin 0.5 (0.2-1.0) mg/dl AST 17 (13-39) U/L ALT 3 L (7-52) U/L Alkaline Phosphatase 43 (34-104) U/L C-Reactive Protein < 0.50 (0-0.5) mg/dl Total Protein 6.7 (6.0-8.3) gm/dl Albumin 4.1 (3.4-5.0) gm/dl Globulin 2.6 (2.5-4.0) gm/dl Albumin/Globulin Ratio 1.6 (0.9-2) Urine Color Urine Appearance (Clear) Urine pH (4.5-7.5) Ur Specific [place] (1.000-1.030) Urine Protein (Negative) Urine Glucose (UA) (Negative) Urine Ketones (Negative) Urine Blood (Negative) Urine Nitrite (Negative) Urine Bilirubin (Negative) Urine Urobilinogen (Negative) Ur Leukocyte Esterase (Negative) 03/29/22 03/29/22 Range/Units 13:42 13:55 WBC (4.8-10.8) K/ul RBC (4.63-6.08) M/uL Hgb (14.0-18.0) g/dl Hct (40.1-51.0) % MCV (80.0-100.0) fL MCH (25.0-34.0) pg MCHC (32.0-36.0) g/dL RDW Std Deviation (36.4-46.3) fL RDW Coeff of Marissa (11.5-14.5) % Plt Count (130-400) K/uL MPV (9.4-12.4) fL Immature Gran % (Auto) % Neut % (Auto) % Lymph % (Auto) % [place] % (Auto) % Eos % (Auto) % Baso % (Auto) % Neut # (Auto) (1.4-6.5) K/uL Lymph # (Auto) (1.2-3.4) K/uL [place] # (Auto) (0.24-0.82) K/uL Eos # (Auto) (0-0.50) K/uL Baso # (Auto) (0-0.2) K/uL Immature Gran # (Auto) (0.00-0.02) K/uL ESR 13 (0-20) mm/hr PT (9.0-12.0) Seconds INR (0.9-1.1) APTT (21.0-31.0) Seconds PTT Ratio Sodium (136-145) mmol/L Potassium (3.5-5.1) mmol/L Chloride (98-107) mmol/L Carbon Dioxide (21-32) mmol/L Anion Gap (3-11) BUN (6-23) mg/dl Creatinine (0.6-1.4) mg/dl Est Cr Clr Drug Dosing ml/min Est GFR ( Amer) ml/min Est GFR (Non-Af Amer) ml/min BUN/Creatinine Ratio (10-20) Glucose (70-99(Fasting)) mg/dl Calcium (8.5-10.1) mg/dl Total Bilirubin (0.2-1.0) mg/dl AST (13-39) U/L ALT (7-52) U/L Alkaline Phosphatase (34-104) U/L C-Reactive Protein (0-0.5) mg/dl Total Protein (6.0-8.3) gm/dl Albumin (3.4-5.0) gm/dl Globulin (2.5-4.0) gm/dl Albumin/Globulin Ratio (0.9-2) Urine Color Yellow Urine Appearance Clear (Clear) Urine pH 6.0 (4.5-7.5) Ur Specific [place] 1.008 (1.000-1.030) Urine Protein Negative (Negative) Urine Glucose (UA) Negative (Negative) Urine Ketones Negative (Negative) Urine Blood Negative (Negative) Urine Nitrite Negative (Negative) Urine Bilirubin Negative (Negative) Urine Urobilinogen Negative (Negative) Ur Leukocyte Esterase Negative (Negative) Administered Medications Atorvastatin Calcium (Atorvastatin 40 Mg Tab) 80 mg PO PM SADIA Stop: 04/28/22 20:59 Last Admin: 03/29/22 20:45 Dose: 80 mg Documented By: [id number] Carbidopa/Levodopa (Carbidopa/Levodopa 50/200mg Ext Rel Tab) 1 tab PO HS SADIA Stop: 04/28/22 20:59 Last Admin: 03/29/22 20:44 Dose: 1 tab Documented By: [id number] Sodium Chloride (Nss 1000ml) 1,000 mls @ 125 mls/hr IV .Q8H STA Stop: 03/29/22 21:44 Last Infusion: 03/29/22 20:47 Dose: 0 mls/hr Documented By: [id number] Admin: 03/29/22 14:05 Dose: 125 mls/hr Documented By: [email or web address] Promethazine HCl 12.5 mg/ (Sodium Chloride) 50.5 mls @ 202 mls/hr IV Q6H PRN PRN Reason: Nausea And Vomiting Stop: 04/28/22 19:46 Last Infusion: 03/29/22 21:01 Dose: 0 mls/hr Documented By: [id number] Admin: 03/29/22 20:37 Dose: 202 mls/hr Documented By: [id number] Sodium Chloride (Nss 1000ml) 1,000 mls @ 80 mls/hr IV .[id number] SADIA Stop: 03/30/22 08:16 Last Admin: 03/29/22 20:40 Dose: 80 mls/hr Documented By: [id number] Melatonin (Melatonin 3 Mg Tab) 6 mg PO HS PRN PRN Reason: Sleep Stop: 04/28/22 19:58 Last Admin: 03/29/22 20:44 Dose: 6 mg Documented By: [id number] Morphine Sulfate (Morphine Sulfate 4 Mg/Ml 1 Ml Carp\\Vial) 4 mg IV Q4H PRN PRN Reason: severe pain 7-10 Stop: 04/12/22 19:55 Last Admin: 03/29/22 20:46 Dose: 4 mg Documented By: [id number] Psyllium Hydrophilic Mucilloid (Psyllium Or Guar Gum Fiber Powder Packet) 1 pkt PO QPM SADIA Stop: 04/28/22 20:59 Last Admin: 03/29/22 20:43 Dose: 1 pkt Documented By: [id number] Discontinued Medications Hydromorphone HCl (Hydromorphone Inj 0.5 Mg/0.5 Ml Syr) 0.25 mg IV Q15M PRN PRN Reason: Pain Stop: 04/12/22 13:36 Last Admin: 03/29/22 16:41 Dose: 0.25 mg Documented By: Admin: 03/29/22 13:55 Dose: 0.25 mg Documented By: [email or web address] Sodium Chloride (Nss 1000ml) 500 mls @ 999 mls/hr IV .Q31M ONE Stop: 03/29/22 14:15 Last Infusion: 03/29/22 16:32 Dose: 0 mls/hr Documented By: Admin: 03/29/22 14:06 Dose: 999 mls/hr Documented By: GUSTAVO Ketorolac Tromethamine (Ketorolac Tromethamine 15 Mg/Ml Vial) 10 mg IV NOW ONE Stop: 03/29/22 17:22 Last Admin: 03/29/22 17:30 Dose: 10 mg Documented By: YESIKA Morphine Sulfate (Morphine Sulfate 4 Mg/Ml 1 Ml Carp\\Vial) 4 mg IV NOW STA Stop: 03/29/22 17:22 Last Admin: 03/29/22 17:32 Dose: 4 mg Documented By: YESIKA Ondansetron HCl (Ondansetron Inj 2 Mg/Ml 2 Ml Vial) 4 mg IV NOW STA Stop: 03/29/22 13:38 Last Admin: 03/29/22 13:55 Dose: 4 mg Documented By: GUSTAVO Ondansetron HCl (Ondansetron Inj 2 Mg/Ml 2 Ml Vial) Confirm Administered Dose 4 mg .ROUTE .STK-MED ONE Stop: 03/29/22 17:36 Last Admin: 03/29/22 17:38 Dose: 4 mg Documented By: YESIKA Imaging Data Radiologist's Impression: Head CT 03/29/22 13:36 CT SCAN OF THE BRAIN WITHOUT IV CONTRAST CLINICAL HISTORY: Change in mental status. Headache. COMPARISON STUDY: MRI of the brain dated 06/02/2021. TECHNIQUE: Unenhanced axial CT scan of the brain is performed from the vertex to the skull base. A dose lowering technique was utilized adhering to the principl es of BIANCA. CT DOSE: 614.27 mGy.cm FINDINGS: Brain parenchyma: A CSF shunt catheter is again seen at the skull base and the posterior fossa. Hydrocephalus has not significantly changed as compared to 06/02/2021. There is age-related involutional change noting moderate subcortical and periventricular microangiopathic disease. There is no hemorrhage, mass effect, or evidence of acute territorial ischemia by CT criteria. A chronic lacunar infarct is noted in the left basal ganglia. Nina-white matter differentiation is preserved. No extra-axial fluid collection is seen. Ventricles, sulci, cisterns: Hydrocephalus is somewhat a previous. No intraventricular hemorrhage is seen. Intracranial vasculature: There is atherosclerotic calcification of the cavernous carotid and vertebral arteries. Calvarium: There is a left occipital [place] hole. No destructive calvarial lesion is identified. Sinuses and mastoids: The visualized paranasal sinuses are clear. The mastoid air cells are well pneumatized. Orbits: The bony orbits are grossly intact. There are bilateral ocular lens implants. IMPRESSION: 1. There is no hemorrhage, mass effect, or evidence of acute territorial ischemia by CT criteria. 2. A CSF shunt catheter is again seen at the skull base in the posterior fossa. Hydrocephalus is unchanged from 06/02/2021. ACT 112: Negative or not required by law. Electronically signed by: Drew Pacheco M.D. 03/29/2022 3:03 PM Discharge Plan Visit Data Chief Complaint: Back Injury/Pain Stated Complaint: SEVERE LAO, BACKACHE, POST SPINAL TAP ED Provider: Hiram Garg Discharge Problem: Headache Patient Disposition: Admitted As Inpatient Discharge Instructions Interventions: ED Discharge Assessment Last Done: 03/29/22 19:18
[2022-03-29] MEDS ORDERED: ONDANSETRON INJ 2 MG/ML 2 ML VIAL IV STA (13:37)
[2022-03-29] MEDS ORDERED: SODIUM CHLORIDE 0.9% 1000ML 500 ML IV ONE (13:45)
[2022-03-29] MEDS ORDERED: SODIUM CHLORIDE 0.9% 1000ML 1,000 ML IV STA (13:45)
[2022-03-29] MEDS: HYDROmorphone INJ 0.5 MG/0.5 ML SYR IV PRN ×2 (13:55→16:41)
[2022-03-29 14:01] LABS: Basophils # (auto) 0.02 K/uL (0-0.2); Basophils % (auto) 0.3 %; Eosinophils # (auto) 0.07 K/uL (0-0.50); Eosinophils % (auto) 0.9 %; Hematocrit (blood only) 39.7 % (40.1-51.0); Hemoglobin 14.1 g/dl (14.0-18.0); Immature Granulocytes # (auto) 0.01 K/uL (0.00-0.02); Immature Granulocytes % (auto) 0.1 %; Lymphocytes # (auto) 0.65 K/uL (1.2-3.4); Lymphocytes % (auto) 8.7 %; Mean Corpuscular Hemoglobin 31.1 pg (25.0-34.0); Mean Corpuscular Hgb Conc 35.5 g/dL (32.0-36.0); Mean Corpuscular Volume 87.4 fL (80.0-100.0); Mean Platelet Volume 9.2 fL (9.4-12.4); Monocytes # (auto) 0.79 K/uL (0.24-0.82); Monocytes % (auto) 10.5 %; Neutrophils # (auto) 5.96 K/uL (1.4-6.5); Neutrophils % (auto) 79.5 %; Platelet Count 269 K/uL (130-400); RDW Coefficient of Variation 11.9 % (11.5-14.5); RDW Standard Deviation 37.9 fL (36.4-46.3); Red Blood Count 4.54 M/uL (4.63-6.08)
[2022-03-29 14:21] LABS: Alanine Aminotransferase 3 U/L (7-52); Albumin Globulin Ratio 1.6 (0.9-2); Albumin Level 4.1 gm/dl (3.4-5.0); Alkaline Phosphatase 43 U/L (34-104); Anion Gap 6 (3-11); Aspartate Aminotransferase 17 U/L (13-39); BUN Creatinine Ratio 14.1 (10-20); Bilirubin,Total 0.5 mg/dl (0.2-1.0); Blood Urea Nitrogen 11 mg/dl (6-23); C Reactive Protein < 0.50 mg/dl (0-0.5); Calcium 8.7 mg/dl (8.5-10.1); Carbon Dioxide 29 mmol/L (21-32); Chloride 100 mmol/L (98-107); Creatinine Clr Calc Pharmacy 65.7 ml/min; Est GFR (African American) 106.7 ml/min; Est GFR (Non-African American) 92.1 ml/min; Globulin 2.6 gm/dl (2.5-4.0); Glucose 85 mg/dl (70-99(Fasting)); Potassium 3.6 mmol/L (3.5-5.1); Sodium 135 mmol/L (136-145); Total Protein 6.7 gm/dl (6.0-8.3)
[2022-03-29 14:25] LABS: Partial Thromboplastin Ratio 0.9; Partial Thromboplastin Time 25.7 Seconds (21.0-31.0); Prothrombin Time 10.9 Seconds (9.0-12.0)
[2022-03-29 14:47] LABS: Appearance Urine Clear (Clear); Bilirubin Urine Negative (Negative); Blood Urine Negative (Negative); Color Urine Yellow; Glucose Urine UA Negative (Negative); Ketones Urine Negative (Negative); Leukocyte Esterase Urine Negative (Negative); Nitrite Urine Negative (Negative); Protein Urine Negative (Negative); Specific Gravity Urine 1.008 (1.000-1.030); Urobilinogen Urine Negative (Negative)
--- NOTE | 2022-03-29 15:05 | CT Scan Report ---
CT SCAN OF THE BRAIN WITHOUT IV CONTRAST CLINICAL HISTORY: Change in mental status. Headache. COMPARISON STUDY: MRI of the brain dated 06/02/2021. TECHNIQUE: Unenhanced axial CT scan of the brain is performed from the vertex to the skull base. A do se lowering technique was utilized adhering to the principles of ALARA. CT DOSE: 614.27 mGy.cm FINDINGS: Brain parenchyma: A CSF shunt catheter is again seen at the skull base and the posterior fossa. [place] cephalus has not significantly changed as compared to 06/02/2021. There is age-related involutional ch rell noting moderate subcortical and periventricular microangiopathic disease. There is no hemorrhage , mass effect, or evidence of acute territorial ischemia by CT criteria. A chronic lacunar infarct is noted in the left basal ganglia. Nina-white matter differentiation is preserved. No extra-axial flui d collection is seen. Ventricles, sulci, cisterns: Hydrocephalus is somewhat a previous. No intraventricular hemorrhage is seen. Intracranial vasculature: There is atherosclerotic calcification of the cavernous carotid and vertebr al arteries. Calvarium: There is a left occipital [place] hole. No destructive calvarial lesion is identified. Sinuses and mastoids: The visualized paranasal sinuses are clear. The mastoid air cells are well pneu matized. Orbits: The bony orbits are grossly intact. There are bilateral ocular lens implants. IMPRESSION: 1. There is no hemorrhage, mass effect, or evidence of acute territorial ischemia by CT criteria. 2. A CSF shunt catheter is again seen at the skull base in the posterior fossa. Hydrocephalus is unch anged from 06/02/2021. ACT 112: Negative or not required by law. Electronically signed by: Drew Pacheco M.D. 03/29/2022 3:03 PM
[2022-03-29] MEDS ORDERED: KETOROLAC TROMETHAMINE 15 MG/ML VIAL IV ONE (17:21)
[2022-03-29] MEDS ORDERED: MoRPHine SULFATE 4 MG/ML 1 ML CARP\\VIAL IV STA (17:21)
[2022-03-29] MEDS ORDERED: ONDANSETRON INJ 2 MG/ML 2 ML VIAL ONE (17:35)
--- NOTE | 2022-03-29 17:43 | History & Physical Report ---
Date of Service March 29, 2022 Assessment & Plan (1) Post-lumbar puncture headache: Plan: - LP with [facility] on 03/25 for NPH eval. - [facility] consulted for further recommendations. - For now, symptom management with IVF, anti-emetics, analgesics. (2) CAD (coronary artery disease): Plan: - Continue atorvastatin, lisinopril; ASA on hold. - SL nitro prn for chest pain. (3) Parkinson disease: Plan: - Continue Sinemet ACHS. (4) Atrial fibrillation: Plan: - Eliquis on hold. - s/p ablation. (5) Hyperlipidemia: Plan: - Continue atorvastatin. (6) Hypertension: Plan: - Continue lisinopril. (7) Osteoarthritis: Plan: - Continue Tylenol, Osteo Bi-Flex. Plan - Admit to med/tele. - SCDs for VTE ppx. - Full Code. History of Present Illness Chief Complaint: headache 4 day s/p LP Primary Care Provider: Chirag Cerna MD Steevn Shetty is a 71 y/o male with PMH significant for atrial fibrillation s/p ablation, CAD, HTN, DLD, GERD and Parkinson's disease who presents today with worsening headache already status post LP. Patient is undergoing evaluation for NPH and had a diagnostic LP done on 03/[address] Carranza, [facility] in [place]. He originally felt well afterwards, however by the next day he developed a severe headache with nausea, low back pain at site of puncture, and photophobia. He was seen in our ED, and after consultation with neurologist and anesthesiologist on-call, patient was treated in ED with 2L NSS, 15 mg Toradol x2, Tylenol 1000 mg and Kcentra, 1000 mcg and did initially feel better, therefore he was discharged home. Unfortunately, his headache has come back today. It is severe throughout his whole head and once again has some associated with nausea, puncture site pain, and photophobia. He is also more confused than usual, having difficulty remembering sequence of events which is not his normal state. In ED, he is slightly hypertensive and bradycardic with HR in 50s. Labs here are largely unremarkable, no electrolyte abnormalities, ESR and CRP are within normal limits. Renal function stable. Head CT without contrast was ordered, showed no acute hemorrhage, mass, or ischemic event. CSF shunt was found, and hydrocephalus is unchanged from May 2021. Allergies Allergy/AdvReac Type Severity Reaction Status Date / Time acetazolamide AdvReac Severe Tachycardia Verified 03/26/22 20:56 amlodipine AdvReac Severe hypotension Verified 03/26/22 20:56 Home Medications Medication Instructions Recorded Confirmed Type coenzyme Q10 100 mg capsule 100 mg PO QAM 08/10/18 04/02/22 History glucosamine-chondroitin 250 mg-200 2 tab PO QAM 08/10/18 04/02/22 History mg tablet (Osteo Bi-Flex) loratadine 10 mg tablet 10 mg PO DAILY PRN allergies 08/10/18 04/02/22 History multivitamin 1 tab PO QAM 08/10/18 04/02/22 History omega 6-tex-uam-fish oil 1,000 mg 2 cap PO QAM 01/29/20 04/02/22 History (120 mg-180 mg) capsule (Fish Oil) atorvastatin 80 mg tablet 80 mg PO PM #90 tabs 02/13/20 04/02/22 Rx psyllium husk 0.4 gram capsule 0.4 g PO QPM 08/26/20 04/02/22 History (Metamucil) valacyclovir 1 gram tablet 2,000 mg PO Q12H PRN cold sores 03/10/21 04/02/22 Rx #30 tabs nitroglycerin 0.4 mg sublingual 0.4 mg sublingual Q5M PRN Chest 07/06/21 04/02/22 History tablet Pain carbidopa 25 mg-levodopa 100 mg 1 tab PO TID 09/23/21 04/02/22 History tablet lisinopril 10 mg tablet 10 mg PO QAM 11/18/21 04/02/22 History carbidopa ER 50 mg-levodopa 200 mg 1 tab PO HS 03/26/22 04/02/22 History tablet,extended release ibuprofen 400 mg tablet 400 mg PO Q8H PRN Pain 03/29/22 04/02/22 History acetaminophen 500 mg tablet 1,000 mg PO Q8 PRN headache #30 03/31/22 04/02/22 Rx (Tylenol Extra Strength) tabs Past Med/Surg History Medical History History of atrial fibrillation CARDIAC ABLATION 2020 Hx of esophageal reflux Hyperlipidemia Hypertension Migraines Myocardial infarction 2009 On anticoagulant therapy Osteoarthritis Parkinson's disease NEW DX 09/03/21 Seasonal allergies Surgical History H/O cardiac radiofrequency ablation 2019 History of brain shunt 2009--posterior benign cyst removal, "a piece of tubing sits at site to keep cyst from regrowing" @ [facility] History of cardiac cath 2014-no stents-- follows with Dr. Valdez History of cataract surgery RT/LEFT History of tonsillectomy and adenoidectomy Hx of arthroscopy of left knee Hx of arthroscopy of right knee Hx of colonoscopy Hx of esophagogastroduodenoscopy Hx of heart artery stent 2009 x 2 (DONE AT [place]) FOLLOWED BY DR. HARTLEY Hx of vitrectomy RT [place] teeth removed Family History Father Coronary heart disease Heart disease Peripheral arterial disease Hypertension Mother Allergies Hypertension Cardiomyopathy Brother History of kidney cancer Cancer Grandfather Stroke Uncle Myocardial infarction Other No family history of adverse response to anesthesia Denies family history of Ovarian cancer Prostate cancer Diabetes Breast cancer Lung cancer Colorectal cancer Asthma Social History Smoking Status: Current some day smoker Tobacco Type: Smokeless Tobacco (Dip or Chew) packs per day: 0.5; Years Smoked: 5; Second Hand Exposure: No; Hx Alcohol Use: Yes Alcohol type: beer and wine Alcohol Intake Frequency: 4 or More x per/Week Alcohol Intake Frequency Comment: 1-3 drinks 5 days a week Hx Substance Use: No Preferred Language: French Communication Ability: Effective Visual Impairment: Limited Hearing Ability: Use of Hearing Aid Lime Mixer Required: No Beliefs That Will Affect Care: None marital status: Current Living Situation: Spouse Current Living Situation Comment: with current occupational status: retired 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 How many Children do You have: 2 Feels Safe at Home: Yes Childhood Exposure to Second-Hand Smoke: Yes caffeine: Yes Dental Care, Regularly: Yes Physical Activity Frequency: Daily Seatbelt Use: always Sunscreen Use: Yes Assistive Devices: None Review of Systems Review of Systems: Constitutional: fronto-temporal headache; No fever/chills, weakness, fatigue, myalgias, anorexia, night sweats Eyes: reports photophobia; No diplopia, no worsening or blurred vision ENT: normal hearing, no trouble swallowing Respiratory: No cough, sputum, dyspnea at rest or on exertion Cardiovascular: No chest pain, tightness or palpitations Abdomen: intermittent nausea without vomiting; no abdominal pain, diarrhea, or constipation : increased urinary urgency; denies dysuria, hematuria, or urinary retention Musculoskeletal: No joint pain, calf pain, swelling Neurologic: No weakness, numbness/tingling, or balance problems Psychiatric: No anxiety or depression Skin: No rash or itch Physical Exam Physical Exam: General: awake, alert, no apparent distress Head: Normocephalic, atraumatic ENT: PERRL, EOMI, no pharyngeal exudate, mucous membranes moist Chest: Clear to auscultation, on room air, no adventitious breath sounds Cardiac: Regular rate and rhythm, no murmur, no JVD, normal peripheral pulses, good capillary refill Abdominal: NABS x 4 quadrants, soft, nontender to palpation, no rebound, guarding or tenderness Extremities: Normal inspection, no peripheral edema or erythema, calfs nontender to palpation Psych: Normal mood and affect Neuro: AAO x 3, strength intact bilaterally and rated 5/5, no motor deficits, speech is clear, no peripheral sensory deficits Skin: no rash or erythema Results & Data Results & Data ([facility]) Vital Signs (Past 12 Hours) Vital Signs Temp Pulse Pulse Resp BP BP Pulse Ox 03/29/22 14:07 62 16 94 03/29/22 14:07 60 16 152/89 H 98 03/29/22 12:50 36.8 C 80 18 153/98 H 96 O2 Del Method 03/29/22 14:07 Room Air 03/29/22 14:07 Room Air 03/29/22 12:50 Room Air Laboratory Results Abnormal lab results 03/29/22 03/29/22 Range/Units 13:42 13:42 RBC 4.54 L (4.63-6.08) M/uL Hct 39.7 L (40.1-51.0) % MPV 9.2 L (9.4-12.4) fL Lymph # (Auto) 0.65 L (1.2-3.4) K/uL Sodium 135 L (136-145) mmol/L ALT 3 L (7-52) U/L Diagnostic Findings Head CT 03/29/22 13:36 CT SCAN OF THE BRAIN WITHOUT IV CONTRAST CLINICAL HISTORY: Change in mental status. Headache. COMPARISON STUDY: MRI of the brain dated 06/02/2021. TECHNIQUE: Unenhanced axial CT scan of the brain is performed from the vertex to the skull base. A dose lowering technique was utilized adhering to the principles of ALARA. CT DOSE: 614.27 mGy.cm FINDINGS: Brain parenchyma: A CSF shunt catheter is again seen at the skull base and the posterior fossa. Hydrocephalus has not significantly changed as compared to 06/02/2021. There is age-related involutional change noting moderate subcortical and periventricular microangiopathic disease. There is no hemorrhage, mass effect, or evidence of acute territorial ischemia by CT criteria. A chronic lacunar infarct is noted in the left basal ganglia. Nina-white matter differentiation is preserved. No extra-axial fluid collection is seen. Ventricles, sulci, cisterns: Hydrocephalus is somewhat a previous. No intraventricular hemorrhage is seen. Intracranial vasculature: There is atherosclerotic calcification of the cavernous carotid and vertebral arteries. Calvarium: There is a left occipital eden hole. No destructive calvarial lesion is identified. Sinuses and mastoids: The visualized paranasal sinuses are clear. The mastoid air cells are well pneumatized. Orbits: The bony orbits are grossly intact. There are bilateral ocular lens implants. IMPRESSION: 1. There is no hemorrhage, mass effect, or evidence of acute territorial ischemia by CT criteria. 2. A CSF shunt catheter is again seen at the skull base in the posterior fossa. Hydrocephalus is unchanged from 06/02/2021. ACT 112: Negative or not required by law. Electronically signed by: Drew Pacheco M.D. 03/29/2022 3:03 PM Code Status & VTE Plan Code Status Full Code. Supervising Physician Co-Signing Physician Notes Discussed with AL at time of evaluation, reviewed her documentation. Agree with her note above. Patient is being admitted for headache, after LP. Patient does have a history of NPH and has a [facility] [facility] shunt in place. It was recommended by outpatient neurologist that we have neurology evaluate the patient here and observe for the time being. Symptomatic relief for headache. PG Care Time/CCT Total # of Minutes Spent Total Time Spent with Patient: Total time spent is greater than 50% in coordination of care (as documented) at patient's floor/unit and/or counseling patient: Coding Level of Care Code 90899 Initial Inpt Care Lvl 2 Diagnoses Post-lumbar puncture headache G97.1 CAD (coronary artery disease) I25.10 Parkinson disease G20 Atrial fibrillation I48.91 Hyperlipidemia E78.5 Hypertension I10 Osteoarthritis M19.90
[2022-03-29] MEDS ORDERED: ONDANSETRON INJ 2 MG/ML 2 ML VIAL IV PRN (19:47)
[2022-03-29] MEDS ORDERED: LORATADINE 10 MG TAB PO PRN (19:47)
[2022-03-29] MEDS ORDERED: SODIUM CHLORIDE 0.9% 1000ML 1,000 ML IV SCH (19:47)
[2022-03-29] MEDS ORDERED: PROMETHAZINE HCL 12.5 MG in SODIUM CHLORIDE 0.9% 50 ML IV PRN (19:47)
[2022-03-29] MEDS ORDERED: HYDROmorphone INJ 0.5 MG/0.5 ML SYR IV PRN (19:47)
[2022-03-29] MEDS ORDERED: NITROGLYCERIN SL 0.4 MG/TAB TAB SL PRN (19:47)
[2022-03-29] MEDS ORDERED: MoRPHine SULFATE 2 MG/ML CARP IV PRN (19:56)
[2022-03-29] MEDS ORDERED: ACETAMINOPHEN 500 MG TAB PO PRN (19:59)
[2022-03-29] MEDS ORDERED: MELATONIN 3 MG TAB PO PRN (19:59)
[2022-03-29] MEDS: PSYLLIUM or GUAR GUM FIBER POWDER PACKET PO SCH (20:43)
[2022-03-29] MEDS: CARBIDOPA/LEVODOPA 50/200MG EXT REL TAB PO SCH (20:44)
[2022-03-29] MEDS: ATORVASTATIN 40 MG TAB PO SCH (20:45)
[2022-03-29] MEDS: MoRPHine SULFATE 4 MG/ML 1 ML CARP\\VIAL IV PRN (20:46)
[2022-03-29] MEDS: KETOROLAC TROMETHAMINE 15 MG/ML VIAL IV PRN (23:51)
[2022-03-30] MEDS: MoRPHine SULFATE 4 MG/ML 1 ML CARP\\VIAL IV PRN (05:38)
[2022-03-30] MEDS: CARBIDOPA/LEVODOPA 25/100MG TAB PO SCH ×3 (06:22→18:02)
[2022-03-30 07:57] LABS: Basophils # (auto) 0.03 K/uL (0-0.2); Basophils % (auto) 0.5 %; Eosinophils # (auto) 0.22 K/uL (0-0.50); Eosinophils % (auto) 3.8 %; Hematocrit (blood only) 40.3 % (40.1-51.0); Hemoglobin 13.6 g/dl (14.0-18.0); Immature Granulocytes # (auto) 0.01 K/uL (0.00-0.02); Immature Granulocytes % (auto) 0.2 %; Lymphocytes # (auto) 0.94 K/uL (1.2-3.4); Lymphocytes % (auto) 16.1 %; Mean Corpuscular Hemoglobin 30.4 pg (25.0-34.0); Mean Corpuscular Hgb Conc 33.7 g/dL (32.0-36.0); Mean Corpuscular Volume 90.2 fL (80.0-100.0); Mean Platelet Volume 9.6 fL (9.4-12.4); Monocytes # (auto) 0.72 K/uL (0.24-0.82); Monocytes % (auto) 12.3 %; Neutrophils # (auto) 3.91 K/uL (1.4-6.5); Neutrophils % (auto) 67.1 %; Platelet Count 245 K/uL (130-400); RDW Coefficient of Variation 12.2 % (11.5-14.5); RDW Standard Deviation 39.8 fL (36.4-46.3); Red Blood Count 4.47 M/uL (4.63-6.08); White Blood Count 5.83 K/ul (4.8-10.8)
[2022-03-30 08:06] LABS: BUN Creatinine Ratio 9.4 (10-20); Calcium 8.2 mg/dl (8.5-10.1); Est GFR (Non-African American) 88.9 ml/min; Potassium 3.8 mmol/L (3.5-5.1)
[2022-03-30] MEDS ORDERED: NON-FORMULARY MEDICATION (Glucosamine-Chondroitin [Osteo Bi-Flex] 250-200 mg Tablet) PO SCH (09:00)
[2022-03-30] MEDS: KETOROLAC TROMETHAMINE 15 MG/ML VIAL IV PRN ×3 (09:05→21:55)
[2022-03-30] MEDS: lisinopril 10 MG TAB PO SCH (09:08)
--- NOTE | 2022-03-30 12:56 | Communication Note ---
Date of Service: March 30, 2022 asked to see patient for possible blood patch. Pt hx reviewed. Pt had a dural puncture with removal of 40cc of CSF on 03/25/22. Pt had conservative management instituted on 03/26. pt headache got worse on 03/29 and pt returned to the hospital. Pt seen by me. His is present. Pt reports LAO on side of his head. Pt is not having photophobia. Pt headache is not relieved by lying flat. pt headache is made worse by bending over. Pt without visual disturbances. pt with mild confusion particularly with sequence of events. Pt appears comfortable in bed sitting at a 45 degree angle. Pt history would increase the likelihood of a PDPH, but his presentation is not indicative of a PDPH. Neurology is consulted and will see the patient today. Anesthesia would be willing to attempt a blood patch after neurology assessment, but feel the likelihood of success to be low.
--- NOTE | 2022-03-30 14:20 | Neurology Consultation ---
Date of Consultation March 30, 2022 Assessment & Plan (1) Post-lumbar puncture headache: 1. needs blood patch - will contact [facility] to arrange 2. discussed with Dr Carranza and Dr Barbour - need to go forward with blood patch tomorrow 3. will need to lay flat after blood patch per protocol 4. anti emetics and pain mgt until blood patch is done will follow up tomorrow after blood patch is completed. Supervising Physician Co-Signing Physician Notes I have seen and discussed above patient with Dr Dinorah Cruz seen and examined this patient has ventriculomegaly without normal pressure hydrocephalus. Lumbar puncture 5 days ago. He reports no headache prior but immediately after the lumbar puncture he sat up and had a fairly severe headache which resolved with laying down intermittently over the last several days he has had a headache which at times is seems somewhat postural. There is been no change in tinnitus double vision fever or stiff neck. Patient has been treated with hydration and routine analgesics. This afternoon he is seated upright not in any significant pain he indicates he is tolerating the upright position fairly well. Pupils are equal optic nerves are grossly normal there is normal wright motility facial symmetry symmetric strength. Neck is supple and there is no evidence of trauma or swelling in the lumbar region impression this patient occasionally has headaches but had a headache that had some postural features after lumbar puncture likely reflecting a low pressure headache. Fortunately he is improving gradually over the days. I would recommend that he stay overnight and if he continues to do well that he can be discharged. I think he should limit his lifting to no more than 10 pounds. The headache were to recur and be postural that I think at that time a blood patch would be reasonable. Dinorah Yanes will reach out to Dr. Hogan, his neurologist guarding the plan to restart anticoagulants. He is prophylactically on an anticoagulant due to a history of atrial fibrillation. He points out to me that he has had an ablation and has not subsequently had known atrial fibrillation. We will sign off please schedule a follow-up with Dr. Jennifer Barbour MD History of Present Illness Reason for Consultation: intractable headache 4 days s/p LP Requesting Physician: Tori Saravia MD Attending Physician: Tori Saravia MD History of Present Illness Steven is a 71 year old male with PMH a fib s/p ablation, CAD, HTN, DLD, GERD and Parkinson's disease who presented to [facility] 03/29/22 with worsening headache after an LP in [place] neurology clinic.He was undergoing evaluation for NPH and had a diagnostic LP done on 03/[address] Carranza, [facility] in [place]. He originally felt well afterwards, however by the next day he developed a severe headache with nausea, low back pain at site of puncture, and photophobia. He was seen in [facility] ED, and after consultation with neurologist and anesthesiologist on-call, patient was treated in ED with 2L NSS, 15 mg Toradol x2, Tylenol 1000 mg and Kcentra, 1000 mcg and did initially feel better, and then discharged home. The headaches returned severe throughout his whole head and once again has some associated with nausea, puncture site pain, and photophobia. He is also more confused than usual, having difficulty remembering sequence of events which is not his normal state. He is still having episode of standing and walking and getting a severe headache. they are requiring morphine and toradol for relief. denies CP, SOB, abdominal pain, N,V. Allergies Allergy/AdvReac Type Severity Reaction Status Date / Time acetazolamide AdvReac Severe Tachycardia Verified 03/26/22 20:56 amlodipine AdvReac Severe hypotension Verified 03/26/22 20:56 Home Medications Medication Instructions Recorded Confirmed Type aspirin 81 mg chewable tablet 81 mg PO QAM 08/10/18 03/29/22 History coenzyme Q10 100 mg capsule 100 mg PO QAM 08/10/18 03/29/22 History glucosamine-chondroitin 250 mg-200 2 tab PO QAM 08/10/18 03/29/22 History mg tablet (Osteo Bi-Flex) loratadine 10 mg tablet 10 mg PO DAILY PRN allergies 08/10/18 03/29/22 History multivitamin 1 tab PO QAM 08/10/18 03/29/22 History apixaban 5 mg tablet (Eliquis) 5 mg PO BID #180 tabs 09/13/19 03/29/22 Rx omega 4-xyn-urr-fish oil 1,000 mg 2 cap PO QAM 01/29/20 03/29/22 History (120 mg-180 mg) capsule (Fish Oil) atorvastatin 80 mg tablet 80 mg PO PM #90 tabs 02/13/20 03/29/22 Rx psyllium husk 0.4 gram capsule 0.4 g PO QPM 08/26/20 03/29/22 History (Metamucil) valacyclovir 1 gram tablet 2,000 mg PO Q12H PRN cold sores 03/10/21 03/29/22 Rx #30 tabs acetaminophen 650 mg 1,300 mg PO Q8 PRN Pain 07/06/21 03/29/22 History tablet,extended release nitroglycerin 0.4 mg sublingual 0.4 mg sublingual Q5M PRN Chest 07/06/21 03/29/22 History tablet Pain carbidopa 25 mg-levodopa 100 mg 1 tab PO TID 09/23/21 03/29/22 History tablet lisinopril 10 mg tablet 10 mg PO QAM 11/18/21 03/29/22 History carbidopa ER 50 mg-levodopa 200 mg 1 tab PO HS 03/26/22 03/29/22 History tablet,extended release ibuprofen 400 mg tablet 400 mg PO Q8H PRN Pain 03/29/22 03/29/22 History Patient History Medical History History of atrial fibrillation CARDIAC ABLATION 2019 Hx of esophageal reflux Hyperlipidemia Hypertension Migraines Myocardial infarction 2008 On anticoagulant therapy Osteoarthritis Parkinson's disease NEW DX 09/03/21 Seasonal allergies Surgical History H/O cardiac radiofrequency ablation 2019 History of brain shunt 2009--posterior benign cyst removal, "a piece of tubing sits at site to keep cyst from regrowing" @ [facility] History of cardiac cath 2014-no stents-- follows with Dr. Valdez History of cataract surgery RT/LEFT History of tonsillectomy and adenoidectomy Hx of arthroscopy of left knee Hx of arthroscopy of right knee Hx of colonoscopy Hx of esophagogastroduodenoscopy Hx of heart artery stent 2008 x 2 (DONE AT [place], [place]) FOLLOWED BY DR. HARTLEY Hx of vitrectomy RT [place] teeth removed Family History Father Coronary heart disease Heart disease Peripheral arterial disease Hypertension Mother Allergies Hypertension Cardiomyopathy Brother History of kidney cancer Cancer Grandfather Stroke Uncle Myocardial infarction Other No family history of adverse response to anesthesia Denies family history of Ovarian cancer Prostate cancer Diabetes Breast cancer Lung cancer Colorectal cancer Asthma Social History Smoking Status: Current some day smoker Tobacco Type: Smokeless Tobacco (Dip or Chew) packs per day: 0.5; Years Smoked: 5; Second Hand Exposure: No; Do You Dip or Chew Tobacco: Yes; Hx Alcohol Use: Yes Alcohol type: beer and wine Alcohol Intake Frequency: 4 or More x per/Week Alcohol Intake Frequency Comment: 1-3 drinks 5 days a week Hx Substance Use: No Preferred Language: Australian Communication Ability: Effective Visual Impairment: Limited Hearing Ability: Use of Hearing Aid User Experience Lead Required: No Beliefs That Will Affect Care: None marital status: Current Living Situation: Spouse Current Living Situation Comment: with current occupational status: retired 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 How many Children do You have: 2 Other Information That Helps Us Care for You: No Feels Safe at Home: Yes Safety Concerns: Feels Safe At This Time Childhood Exposure to Second-Hand Smoke: Yes caffeine: Yes Dental Care, Regularly: Yes Physical Activity Frequency: Daily Seatbelt Use: always Sunscreen Use: Yes Assistive Devices: None Review of Systems Review of Systems: All systems reviewed & are unremarkable except as noted in HPI & below Physical Exam Physical Exam: Physical Exam: Constitutional: appearance nourished, healthy and normal Ears, Nose, Mouth and Throat: mucous membranes moist, no injection and skin n ormal, eyes normal Cardiovascular: normal S-1 and S-2 and regular rate and rhythm Respiratory: clear to auscultation (CTA) and no rales, rhonchi or wheeze Musculoskeletal: no peripheral edema and good distal pulses Skin: no stigmata of neurocutaneous disease noted and normal and intact Eyes: extraocular muscles intact (EOMI) and pupils equal, round and reactive to light (PERRL) NEUROLOGIC EXAMINATION: Mental status: Alert and interactive Oriented to full date and location Oriented to person Speech fluent with no evidence of aphasia Cranial Nerves smile eye brow raise symmetric Reflexes: Deep tendon reflexes were symmetrical and graded 2/5. down going toes Sensory: light cool vibration Coordination: finger to nose, heel to roy Gait/Stance: Posture sitting at 30 degrees in bed Motor: Negative for pronator drift of out stretched arms with eyes closed. 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 Results & Data ([facility]) Vital Signs (Past 12 Hours) Vital Signs Temp Pulse Pulse Resp BP Pulse Ox O2 Del Method 03/30/22 12:04 36.7 C 52 L 18 156/77 H 96 Room Air 03/30/22 07:50 36.4 C L 52 L 18 151/82 H 97 Room Air 03/30/22 07:49 50 L 03/30/22 04:36 36.7 C 56 L 18 158/78 H 96 Room Air Laboratory Results Abnormal lab results 03/30/22 03/30/22 Range/Units 07: 07:19 RBC 4.47 L (4.63-6.08) M/uL Hgb 13.6 L (14.0-18.0) g/dl Lymph # (Auto) 0.94 L (1.2-3.4) K/uL BUN/Creatinine Ratio 9.4 L (10-20) Glucose 110 H (70-99(Fasting)) mg/dl Calcium 8.2 L (8.5-10.1) mg/dl Diagnostic Findings CT head-There is no hemorrhage, mass effect, or evidence of acute territorial ischemia by CT criteria. A CSF shunt catheter is again seen at the skull base in the posterior fossa. Hydrocephalus is unchanged from 06/02/2021.
--- NOTE | 2022-03-30 17:49 | Hospitalist Progress Note ---
Date of Service March 30, 2022 Assessment & Plan (1) Post-lumbar puncture headache: Plan: Per communication from neurology anesthesia consulted for blood patch (I concur)Dr. Caputo communicated they felt picture overall not consistent with post dural puncture headache other than history of lumbar puncture; however, they were willing to consider pending formal neurology consult; I requested direct communication neurology and anesthesia; subsequently, formal neurology consult noted and appreciated, noted plan for blood patch tomorrowper note they are coordinating; symptomatic and supportive care in the meantime; noted subtle confusionwas not obvious when I saw him. (2) CAD (coronary artery disease): Plan: - Continue atorvastatin, lisinopril; ASA on hold. - SL nitro prn for chest pain. (3) Parkinson disease: Plan: - Continue Sinemet ACHS. (4) Atrial fibrillation: Plan: - Eliquis on hold. - s/p ablation. (5) Hyperlipidemia: Plan: - Continue atorvastatin. (6) Hypertension: Plan: - Continue lisinopril. (7) Osteoarthritis: Plan: - Continue Tylenol, Osteo Bi-Flex. Plan - Admit to med/tele. - SCDs for VTE ppx. - Full Code. Admission and Anticipated Discharge Date Admission Date: March 29, 2022 Subjective Follow-up of headache following lumbar puncturefeels may be slightly better but headache continues Physical Exam Physical Exam: Constitutional and general: No acute distress, looks biologic age Head and face: No puffiness, atraumatic Eyes: No scleral icterus, extraocular movements normal Neck: Supple, no JVD Musculoskeletal: No acute joint swelling, no bony abnormalities Skin/dermatologic/integument: No rash, no purpura Hematologic and lymphatic: pallor +, no petechia Gastrointestinal/abdomen: Nondistended, soft, nonacute Neurologic: Cranial nerves intact, nonfocal Psychiatry: Awake, alert, pleasant, communicative Cardiovascular: Heart rhythm regular, no rub, no murmur, no gallop Respiratory: Chest movements equal, no use of accessory muscles, no adventitious sounds Extremities: No edema, no cyanosis Results & Data Results & Data ([facility]) Vital Signs (Past 12 Hours) Vital Signs Temp Pulse Pulse Resp BP Pulse Ox O2 Del Method 03/30/22 15:42 37.1 C 58 L 18 153/82 H 94 Room Air 03/30/22 14:51 59 L 03/30/22 12:04 36.7 C 52 L 18 156/77 H 96 Room Air 03/30/22 07:50 36.4 C L 52 L 18 151/82 H 97 Room Air 03/30/22 07:49 50 L Laboratory Results Laboratory Results - last 24 hr 03/29/22 03/30/22 03/30/22 Unknown 07:19 07:19 WBC 5.83 RBC 4.47 L Hgb 13.6 L Hct 40.3 MCV 90.2 MCH 30.4 MCHC 33.7 RDW Std Deviation 39.8 RDW Coeff of Marissa 12.2 Plt Count 245 MPV 9.6 Immature Gran % (Auto) 0.2 Neut % (Auto) 67.1 Lymph % (Auto) 16.1 [place] % (Auto) 12.3 Eos % (Auto) 3.8 Baso % (Auto) 0.5 Neut # (Auto) 3.91 Lymph # (Auto) 0.94 L [place] # (Auto) 0.72 Eos # (Auto) 0.22 Baso # (Auto) 0.03 Immature Gran # (Auto) 0.01 Sodium 136 Potassium 3.8 Chloride 102 Carbon Dioxide 30 Anion Gap 4 BUN 8 Creatinine 0.85 Est Cr Clr Drug Dosing 90.0 Est GFR ( Amer) 103.0 Est GFR (Non-Af Amer) 88.9 BUN/Creatinine Ratio 9.4 L Glucose 110 H Calcium 8.2 L SARS-CoV-2, RNA, NAAT NEGATIVE PG Care Time/CCT Total # of Minutes Spent Total Time Spent with Patient: Total time spent is greater than 50% in coordination of care (as documented) at patient's floor/unit and/or counseling patient: Coding Level of Care Code 06152 Subseq Hosp Care Lvl 3 Diagnoses Post-lumbar puncture headache G97.1 CAD (coronary artery disease) I25.10 Parkinson disease G20 Atrial fibrillation I48.91 Hyperlipidemia E78.5 Hypertension I10 Osteoarthritis M19.90
[2022-03-30] MEDS: ATORVASTATIN 40 MG TAB PO SCH (20:55)
[2022-03-30] MEDS: PSYLLIUM or GUAR GUM FIBER POWDER PACKET PO SCH (20:56)
[2022-03-30] MEDS: CARBIDOPA/LEVODOPA 50/200MG EXT REL TAB PO SCH (20:56)
[2022-03-31] MEDS: CARBIDOPA/LEVODOPA 25/100MG TAB PO SCH ×2 (06:32→11:56)
[2022-03-31] MEDS: lisinopril 10 MG TAB PO SCH (09:14)
--- NOTE | 2022-03-31 12:04 | Communication Note ---
Date of Service: March 31, 2022 The patient had a history of dural puncture with subsequent headache. Today he is sitting comfortably in bed. He has a minimal headache that comes and goes. I do not recommend a blood patch at this time. The patient agrees and does not want a blood patch either. I spoke to Dr. Saravia over the phone and he agrees as well.
--- NOTE | 2022-03-31 13:42 | Discharge Summary ---
Date of Service March 31, 2022 Admission HPI Per Admitting Provider Steven Shetty is a 71 y/o male with PMH significant for atrial fibrillation s/p ablation, CAD, HTN, DLD, GERD and Parkinson's disease who presents today with worsening headache already status post LP. Patient is undergoing evaluation for NPH and had a diagnostic LP done on 03/[address] Carranza, [facility] in [place]. He originally felt well afterwards, however by the next day he developed a severe headache with nausea, low back pain at site of puncture, and photophobia. He was seen in our ED, and after consultation with neurologist and anesthesiologist on-call, patient was treated in ED with 2L NSS, 15 mg Toradol x2, Tylenol 1000 mg and Kcentra, 1000 mcg and did initially feel better, therefore he was discharged home. Unfortunately, his headache has come back today. It is severe throughout his whole head and once again has some associated with nausea, puncture site pain, and photophobia. He is also more confused than usual, having difficulty remembering sequence of events which is not his normal state. In ED, he is slightly hypertensive and bradycardic with HR in 50s. Labs here are largely unremarkable, no electrolyte abnormalities, ESR and CRP are within normal limits. Renal function stable. Head CT without contrast was ordered, showed no acute hemorrhage, mass, or ischemic event. CSF shunt was found, and hydrocephalus is unchanged from May 2021. Principal Diagnosis Post lumbar puncture headache Discharge Exam No acute distress; no nuchal rigidity noted Chest clear Vital Signs Temp Pulse Pulse Resp BP BP Pulse Ox 03/31/22 12:14 37.2 C 61 16 151/85 H 94 03/31/22 08:33 36.8 C 64 16 149/78 H 95 03/31/22 07:27 61 03/30/22 22:17 54 L 03/31/22 04:41 36.9 C 52 L 18 160/81 H 97 03/30/22 23:26 36.8 C 56 L 18 156/84 H 97 03/30/22 18:35 36.8 C 56 L 19 157/84 H 95 03/30/22 15:42 37.1 C 58 L 18 153/82 H 94 03/30/22 14:51 59 L O2 Del Method 03/31/22 12:14 Room Air 07/20/22 08:33 Room Air 03/31/22 07:27 03/30/22 22:17 03/31/22 04:41 Room Air 03/30/22 23:26 Room Air 03/30/22 18:35 Room Air 03/30/22 15:42 Room Air 03/30/22 14:51 Intake and Output 03/30/22 03/31/22 03/31/22 22:59 06:59 14:59 Intake Total 450 / 1846 Balance 450 / 1846 Intake: Oral 450 / 850 Other: Other Intake Source Sips Weight 83.2 kg Weight Measurement Method Standing Scale Discharge Data Allergies Allergy/AdvReac Type Severity Reaction Status Date / Time acetazolamide AdvReac Severe Tachycardia Verified 03/26/22 20:56 amlodipine AdvReac Severe hypotension Verified 03/26/22 20:56 Consultations 03/29/22 19:47 Consult Neurology Routine 03/30/22 11:09 Consult Anesthesiology Routine Ordered Studies 03/29/22 13:36 CT head/brain wo con Stat Hospital Course (1) Post-lumbar puncture headache: Improved; consensus is blood patch not needed; follow-up with neurology (2) CAD (coronary artery disease): - Continue atorvastatin, ASA on hold. Should discuss with his neurologist and montessori lead teacher with respect to resumption of aspirin - (3) Parkinson disease: - Continue Sinemet ACHS. (4) Atrial fibrillation: - Eliquis on hold. - s/p ablation. Should discuss with his neurologist with respect to resumption (5) Hyperlipidemia: - Continue atorvastatin. (6) Hypertension: - Continue lisinopril. (7) Osteoarthritis: - Continue Tylenol, Osteo Bi-Flex. (8) Cognitive decline: reports been progressively getting worse over the last few months; could be part of Parkinson's/dementia syndrome; follow-up with neurology; discussed with neurology and can be discharged with outpatient follow up Total Time Total Time Spent Total Time Spent (In Minutes): 35 Discharge Plan Discharge Items Patient Disposition: Home - Self-Care Reason For Visit: INTRACTABLE HEADACHE S/P SPINAL TAP Discharge Diagnosis: Post lumbar puncture headache Activity: As commented below Activity Comment: As tolerated Lifting: No more than 10 pounds Non-emergency contact: Primary Care Provider and Neurologist Call non-emergency contact if: your symptoms worsen Follow-up/Referrals: Chirag Cerna MD [Primary Care Provider] - Juan Carranza MD [Outside Practitioners] - (call office to confirm) Diet: Heart Healthy Addtl Attending Provider Instructions: Keep follow-up with your neurologist; contact your montessori lead teacher with respect to resumption of aspirin and Eliquis coordinating with your neurologist Pending Studies at Discharge: No Stand-Alone Forms: My [facility], Smoking Cessation Medications and DC Order Prescriptions: New acetaminophen [Tylenol Extra Strength] 500 mg Tablet 1,000 mg PO Q8 PRN (Reason: headache) Qty: 30 0RF Continued atorvastatin 80 mg tablet 80 mg PO PM Qty: 90 1RF Hold Instructions: Pt. switching to will cardio-requests no more refills valacyclovir 1 gram tablet 2,000 mg PO Q12H PRN (Reason: cold sores) Qty: 30 0RF carbidopa-levodopa 25-100 mg tablet 1 tab PO TID Rx Instructions: TAKES AT 0700, 1130, & 1730 psyllium husk [Metamucil] 0.4 gram capsule 0.4 g PO QPM nitroglycerin 0.4 mg tablet, sublingual 0.4 mg sublingual Q5M PRN (Reason: Chest Pain) Rx Instructions: do not exceed 3 doses per episode multivitamin Tablet 1 tab PO QAM loratadine 10 mg Tablet 10 mg PO DAILY PRN (Reason: allergies) coenzyme Q10 100 mg Capsule 100 mg PO QAM glucosamine-chondroitin [Osteo Bi-Flex] 250-200 mg Tablet 2 tab PO QAM omega 5-kes-mrh-fish oil [Fish Oil] 1,000 mg (120 mg-180 mg) capsule 2 cap PO QAM carbidopa-levodopa 50-200 mg tablet extended release 1 tab PO HS lisinopril 10 mg tablet 10 mg PO QAM ibuprofen 400 mg Tablet 400 mg PO Q8H PRN (Reason: Pain) Discontinued Eliquis 5 mg tablet 5 mg PO BID Qty: 180 3RF Hold Instructions: pt. switching to [facility]. acetaminophen 650 mg tablet extended release 1,300 mg PO Q8 PRN (Reason: Pain) aspirin 81 mg Tablet,Chewable 81 mg PO QAM Discharge Orders: Discharge Order (Routine); Ordered 03/31/22 Ordered By: Tori Saravia Admission Data Admit Date/Time: 03/29/22 18:12 Attending Provider: Tori Saravia Admit Provider: Kevin Claudio Primary Care Provider: Chirag Cerna Other Providers: Dinorah Barbour ; Romaine Caputo Coding Level of Care Code D/C DAY MANAGEMENT >30 MINS Diagnoses Post-lumbar puncture headache G97.1 CAD (coronary artery disease) I25.10 Parkinson disease G20 Atrial fibrillation I48.91 Hyperlipidemia E78.5 Hypertension I10 Osteoarthritis M19.90 Cognitive decline R41.89
== END 2022-03-31 14:32 | disposition home or self-care (01) | DRG 103 ==
LOC: ED 12:40 → SUATTDRO 18:12 → 2W 18:12

== ENCOUNTER 2024-01-02 12:10 | Inpatient (IN) ==
[2024-01-02 13:11] LABS: Basophils # (auto) 0.02 K/uL (0.00-0.20); Basophils % (auto) 0.4 %; Eosinophils # (auto) 0.06 K/uL (0.00-0.50); Eosinophils % (auto) 1.1 %; Hematocrit (blood only) 41.7 % (42.0-52.0); Hemoglobin 14.3 g/dl (14.0-18.0); Immature Granulocytes # (auto) 0.02 K/uL (0.01-0.20); Immature Granulocytes % (auto) 0.4 %; Lymphocytes # (auto) 0.95 K/uL (1.20-3.40); Lymphocytes % (auto) 16.9 %; Mean Corpuscular Hemoglobin 30.4 pg (25.0-34.0); Mean Corpuscular Hgb Conc 34.3 g/dL (32.0-36.0); Mean Corpuscular Volume 88.7 fL (80.0-100.0); Mean Platelet Volume 9.5 fL (9.4-12.4); Monocytes # (auto) 0.48 K/uL (0.11-0.59); Monocytes % (auto) 8.6 %; Neutrophils # (auto) 4.08 K/uL (1.40-6.50); Neutrophils % (auto) 72.6 %; Platelet Count 299 K/uL (130-400); RDW Coefficient of Variation 12.1 % (11.5-14.5); RDW Standard Deviation 39.8 fL (36.4-46.3); White Blood Count 5.61 K/ul (4.8-10.8)
--- NOTE | 2024-01-02 13:14 | Emergency Department Note ---
Impression & Plan Chest pain, Blood glucose elevated ED Provider Note NAME: ROSALBA MATHEW AGE: 73 SEX: M : 1950 ARRIVES VIA: Walk-In INFORMANT: Patient ED PROVIDER(S): Javy Dejesus DO CHIEF COMPLAINT: chest pain HPI: Patient is a 73-year-old male with a past medical history of hypertension, CAD, with 2 stents in the LAD on apixaban who presents to the ER for chest pain. He describes it as a pressure tightness in the middle of his chest which goes up to his jaw on his arm. Has been coming and going since last . He was seen evaluated in the ER and requested to be discharged following a negative workup and declined admission. He presents after seeing his PCP and calling cardiology and they referred him back in as he has had persistent intermittent chest pain since then. It still is not exertional. Does not change with eating or drinking. He has no chest pain at this time. ADDITIONAL HISTORY OBTAINED: Additional history provided by who is present at bedside who notes that he has been having intermittent chest pain since he was here in the ER Chronic Medical/Social Conditions Affecting Care: Per HPI PAST MEDICAL HISTORY:See Below PAST SURGICAL HISTORY:See Below FAMILY HISTORY:See Below SOCIAL HISTORY:See Below HOME MEDICATIONS:See Below ALLERGIES:See Below VITALS:See Below PHYSICAL EXAMINATION: GENERAL: Sitting up in bed, alert, well appearing, well nourished, no distress, non-toxic EYE EXAM: normal conjunctiva. OROPHARYNX: mucous membranes are moist NECK: supple, no nuchal rigidity, no adenopathy, non-tender LUNGS: Clear to auscultation. Normal chest wall mechanics HEART: no murmurs, S1 normal and S2 normal ABDOMEN: abdomen soft, non-tender, normo-active bowel sounds, no masses, no rebound or guarding. UPPER EXTREMITIES: upper extremities are grossly normal. LOWER EXTREMITIES: No pitting edema. Calves are equal bilaterally NEURO EXAM: Normal sensorium, cranial nerves II-XII grossly intact, normal speech, no gross weakness of arms, no gross weakness of legs. No drift. Finger to nose intact. Gross sensation intact. MEDICAL DECISION MAKING: Patient is a 73-year-old male with a past medical history CAD who presents the ER for above-stated complaint. IV was established blood work was obtained. Labs show no significant leukocytosis or anemia. INR unremarkable. BMP with slightly elevated glucose at 106. LFTs bilirubin was unremarkable. Troponins were negative x 2. Patient complains of waxing and waning chest pain with a history of CAD. Recent evaluation in the ER patient requested to be discharged following informed refusal of care. He was agreeable to admission as his PCP and cardiology group referred him back in today. Did discuss with case with the hospitalist for further evaluation management treatment. Patient was given aspirin. He was pain-free upon admission. Consults/Care Managements Discussions: Per MDM Triage Nursing notes reviewed. Limited review of prior medical records performed Vital Signs: reviewed and remarkable for no significant abnormalities Differential diagnosis: Cardiac ischemia, aortic dissection, pulmonary embolism, pneumothorax, pneumonia, pericarditis, myocarditis, esophageal rupture, GERD, cholecystitis, pancreatitis, musculoskeletal, as well as other pathologies. ER treatment provided: See below Diagnostics interpreted by me include EKG and cardiac monitoring as listed below: -Cardiac Monitoring: An order was placed for continuous cardiac monitoring. The monitor shows a rate of 80 with sinus rhythm. -ECG: Sinus rhythm rate 78 Normal axis No PVCs QTc 417 -Laboratory studies:Interpreted by me as stated above in MDM and shown below. Imaging studies: Xrays: As interpreted by me: Portable AP upright 1 view of the chest shows no focal CTs show: none Procedures:none Critical Care: None Past Med/Surg History Medical History Headache Parkinson's disease NEW DX 09/03/21 Hx of esophageal reflux Migraines History of atrial fibrillation CARDIAC ABLATION 2019 Seasonal allergies Osteoarthritis On anticoagulant therapy Myocardial infarction 2009 Hypertension Hyperlipidemia Surgical History History of cardiac cath 2014-no stents-- follows with Dr. Valdez H/O cardiac radiofrequency ablation 2019 [place] teeth removed History of cataract surgery RT/LEFT Hx of heart artery stent 2009 x 2 (DONE AT [place]) FOLLOWED BY DR. HARTLEY Hx of vitrectomy RT History of tonsillectomy and adenoidectomy Hx of colonoscopy Hx of esophagogastroduodenoscopy Hx of arthroscopy of right knee Hx of arthroscopy of left knee History of brain shunt 2009--posterior benign cyst removal, "a piece of tubing sits at site to keep cyst from regrowing" @ [facility] Family History Father Coronary heart disease Heart disease Peripheral arterial disease Hypertension Mother Allergies Hypertension Cardiomyopathy Brother History of kidney cancer Cancer Grandfather Stroke Uncle Myocardial infarction Other No family history of adverse response to anesthesia Denies family history of Ovarian cancer Prostate cancer Diabetes Breast cancer Lung cancer Colorectal cancer Asthma Social History Smoking Status: Never smoker Tobacco Type: Smokeless Tobacco (Dip or Chew) packs per day: 0.5; Second Hand Exposure: No; Do You Dip or Chew Tobacco: Yes; Hx Alcohol Use: Yes Alcohol type: wine Alcohol Intake Frequency: 4 or More x per/Week Alcohol Intake Frequency Comment: 1-3 drinks 5 days a week Hx Substance Use: No Preferred Language: [place] Communication Ability: Effective Visual Impairment: Limited Hearing Ability: Use of Hearing Aid Tech Intern Required: No Beliefs That Will Affect Care: None marital status: Current Living Situation: Spouse Current Living Situation Comment: with current occupational status: retired 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 How many Children do You have: 2 Other Information That Helps Us Care for You: No Feels Safe at Home: Yes Safety Concerns: Feels Safe At This Time Childhood Exposure to Second-Hand Smoke: Yes caffeine: Yes Dental Care, Regularly: Yes Physical Activity Frequency: Daily Seatbelt Use: always Sunscreen Use: Yes Assistive Devices: Cane Allergies Allergies Allergy/AdvReac Type Severity Reaction Status Date / Time acetazolamide AdvReac Severe Tachycardia Verified 11/04/22 10:18 amlodipine AdvReac Severe hypotension Verified 11/04/22 10:18 Home Meds Home Medications Medication Instructions Recorded Confirmed coenzyme Q10 100 mg capsule 100 mg PO QAM 08/10/18 01/02/24 glucosamine-chondroitin 250 mg-200 2 tab PO QAM 08/10/18 01/02/24 mg tablet (Osteo Bi-Flex) loratadine 10 mg tablet 10 mg PO DAILY PRN allergies 08/10/18 01/02/24 multivitamin 1 tab PO QAM 08/10/18 01/02/24 omega 3-nhi-yml-fish oil 1,000 mg 2 cap PO QAM 01/29/20 01/02/24 (120 mg-180 mg) capsule (Fish Oil) psyllium husk 0.4 gram capsule 0.4 g PO QPM 08/26/20 01/02/24 (Metamucil) nitroglycerin 0.4 mg sublingual 0.4 mg sublingual Q5M PRN Chest 07/06/21 01/02/24 tablet Pain lisinopril 10 mg tablet 10 mg PO QAM 11/18/21 01/02/24 ibuprofen 400 mg tablet 400 mg PO Q8H PRN Pain 03/29/22 01/02/24 apixaban 5 mg tablet (Eliquis) 5 mg PO BID 06/03/22 01/02/24 aspirin 81 mg tablet,delayed 81 mg PO DAILY 06/03/22 01/02/24 release (Adult Aspirin Regimen) carbidopa 25 mg-levodopa 100 mg 1 tab PO TID 01/02/24 01/02/24 tablet carbidopa ER 50 mg-levodopa 200 mg 1 tab PO QPM 01/02/24 01/02/24 tablet,extended release melatonin 6 mg PO DAILY 01/02/24 01/02/24 Previous Rx's Medication Instructions Recorded atorvastatin 80 mg tablet 80 mg PO PM #90 tabs 02/13/20 acetaminophen 500 mg tablet 1,000 mg (2 x 500 mg) PO Q8 PRN 03/31/22 (Tylenol Extra Strength) headache #30 tabs valacyclovir 1 gram tablet 2,000 mg (2 x 1 gram) PO Q12H PRN 06/03/22 cold sores #30 tabs gabapentin 100 mg capsule 100 mg PO TID #90 caps 09/30/22 Results & Data (ED) Vital Signs Vital Signs - 24 hr 01/02/24 12:13 01/02/24 13:04 01/02/24 13:06 Temperature 36.5 C Temperature Source Temporal Artery Scan Pulse Rate 89 67 Pulse Rate [Apical] Pulse Rhythm Regular Respiratory Rate 20 Respiratory Effort / Characteristics Non-Labored Spontaneous Respiratory Depth Normal Blood Pressure 110/70 Blood Pressure Mean 83 Pulse Oximetry 97 Oxygen Delivery Method Room Air Room Air Sepsis Recent Fever Within 48 Hours No Sepsis New/Unexplained Change in Mental Status No Sepsis Action Taken by Nursing No Action Required 01/02/24 13:06 01/02/24 13:06 Temperature Temperature Source Pulse Rate Pulse Rate [Apical] 68 Pulse Rhythm Respiratory Rate 18 Respiratory Effort / Characteristics Respiratory Depth Blood Pressure Blood Pressure Mean Pulse Oximetry 96 97 Oxygen Delivery Method Room Air Room Air Sepsis Recent Fever Within 48 Hours Sepsis New/Unexplained Change in Mental Status Sepsis Action Taken by Nursing Laboratory Data 01/02/24 12:39 01/02/24 12:39 Lab Results 01/02/24 Range/Units 12:39 WBC 5.61 (4.8-10.8) K/ul RBC 4.70 (4.70-6.10) M/uL Hgb 14.3 (14.0-18.0) g/dl Hct 41.7 L (42.0-52.0) % MCV 88.7 (80.0-100.0) fL MCH 30.4 (25.0-34.0) pg MCHC 34.3 (32.0-36.0) g/dL RDW Std Deviation 39.8 (36.4-46.3) fL RDW Coeff of Marissa 12.1 (11.5-14.5) % Plt Count 299 (130-400) K/uL MPV 9.5 (9.4-12.4) fL Immature Gran % (Auto) 0.4 % Neut % (Auto) 72.6 % Lymph % (Auto) 16.9 % [place] % (Auto) 8.6 % Eos % (Auto) 1.1 % Baso % (Auto) 0.4 % Neut # (Auto) 4.08 (1.40-6.50) K/uL Lymph # (Auto) 0.95 L (1.20-3.40) K/uL [place] # (Auto) 0.48 (0.11-0.59) K/uL Eos # (Auto) 0.06 (0.00-0.50) K/uL Baso # (Auto) 0.02 (0.00-0.20) K/uL Immature Gran # (Auto) 0.02 (0.01-0.20) K/uL PT 11.3 (9.0-12.0) Seconds INR 1.0 (0.9-1.1) APTT 28 (21-31) Seconds PTT Ratio 1.0 Sodium 137 (136-145) mmol/L Potassium 4.3 (3.5-5.1) mmol/L Chloride 105 (98-107) mmol/L Carbon Dioxide 28 (21-32) mmol/L Anion Gap 4 (3-11) BUN 19 (6-23) mg/dl Creatinine 0.81 (0.6-1.4) mg/dl Est Cr Clr Drug Dosing 94.5 ml/min Est GFR ( Amer) 103.6 ml/min Est GFR (Non-Af Amer) 89.4 ml/min BUN/Creatinine Ratio 23.5 H (10-20) Glucose 106 H (70-99(Fasting)) mg/dl Calcium 9.5 (8.6-10.3) mg/dl Total Bilirubin 0.4 (0.2-1.0) mg/dl AST 16 (13-39) U/L ALT 5 L (7-52) U/L Alkaline Phosphatase 38 (34-104) U/L Troponin I High Sens 6.2 (0-20) pg/ml Total Protein 6.8 (6.0-8.3) gm/dl Albumin 4.2 (3.4-5.0) gm/dl Globulin 2.6 (2.5-4.0) gm/dl Albumin/Globulin Ratio 1.6 (0.9-2) Administered Medications Discontinued Medications Aspirin (Aspirin Chew 324 Mg) 324 mg PO NOW STA Stop: 01/02/24 13:15 Last Admin: 01/02/24 13:18 Dose: 324 mg Documented By: [facility] Imaging Data Radiologist's Impression: Chest X-Ray 01/02/24 12:17 XR chest 1V not portable HISTORY: 73 years-old Male Chest pain, nonspecific COMPARISON: 12/29/2023 TECHNIQUE: AP view the chest FINDINGS: Calcified pleural plaques redemonstrated. Cardiomegaly with coronary arterial stenting. No pneumothorax, pleural effusion or airspace consolidation. Bones appear grossly intact. IMPRESSION: 1. No acute process. 2. 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 ACT 112: Negative or not required by law. The above report was generated using voice recognition software. It may contain grammatical, syntax or spelling errors. Electronically signed by: Duke Hallman M.D. 01/02/2024 1:35 PM Discharge Plan Visit Data Chief Complaint: Chest Pain Stated Complaint: CHEST PAINS, ARM PAIN, REF BY DOC ED Provider: Javy Dejesus Discharge Problem: Chest pain, Blood glucose elevated Patient Disposition: Admitted As Inpatient Discharge Instructions Interventions: ED Discharge Assessment Last Done: 01/02/24 15:14 Discharge Problem: Chest pain Qualifiers: Chest pain type: unspecified Qualified Code(s): R07.9 - Chest pain, unspecified
[2024-01-02] MEDS: ASPIRIN CHEW 324 MG PO STA (13:18)
[2024-01-02 13:21] LABS: Albumin Globulin Ratio 1.6 (0.9-2); Albumin Level 4.2 gm/dl (3.4-5.0); BUN Creatinine Ratio 23.5 (10-20); Bilirubin,Total 0.4 mg/dl (0.2-1.0); Calcium 9.5 mg/dl (8.6-10.3); Creatinine Clr Calc Pharmacy 94.5 ml/min; Est GFR (African American) 103.6 ml/min; Est GFR (Non-African American) 89.4 ml/min; Globulin 2.6 gm/dl (2.5-4.0); Potassium 4.3 mmol/L (3.5-5.1); Total Protein 6.8 gm/dl (6.0-8.3)
[2024-01-02 13:27] LABS: Troponin I High Sensitivity 6.2 pg/ml (0-20)
[2024-01-02 13:32] LABS: Partial Thromboplastin Time 28 Seconds (21-31); Prothrombin Time 11.3 Seconds (9.0-12.0)
--- NOTE | 2024-01-02 13:36 | XRay Report ---
XR chest 1V not portable HISTORY: 73 years-old Male Chest pain, nonspecific COMPARISON: 12/29/2023 TECHNIQUE: AP view the chest FINDINGS: Calcified pleural plaques redemonstrated. Cardiomegaly with coronary arterial stenting. No pneumothor ax, pleural effusion or airspace consolidation. Bones appear grossly intact. IMPRESSION: 1. No acute process. 2. 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 ACT 112: Negative or not required by law. The above report was generated using voice recognition software. It may contain grammatical, syntax o r spelling errors. Electronically signed by: Duke Hallman M.D. 01/02/2024 1:35 PM
[2024-01-02] MEDS ORDERED: MAGNESIUM HYDROXIDE SUSP 30 ML UDC PO PRN (13:39)
[2024-01-02] MEDS ORDERED: ONDANSETRON INJ 2 MG/ML 2 ML VIAL IV PRN (13:39)
[2024-01-02] MEDS ORDERED: ALUMINUM/MAGNESIUM SUSP 30 ML UDC PO PRN (13:39)
[2024-01-02] MEDS ORDERED: POLYETHYLENE (MIRALAX) 17 GM PACK PO PRN (13:39)
--- NOTE | 2024-01-02 13:50 | History & Physical Report ---
Date of Service January 02, 2024 Assessment & Plan (1) Chest pain: (2) CAD (coronary artery disease): (3) Atrial fibrillation: (4) On anticoagulant therapy: (5) Parkinson's disease: (6) Hypertension: (7) Hyperlipidemia: (8) Osteoarthritis: Plan Mr. Shetty is a 73 y/o male with a medical history that includes CAD s/p LAD x2 stents 2008 and AF s/p Ablation 2019; presents to the ED today with complaints of chest pain after being seen by his PCP as an outpatient this morn ing. He did present to the ER last for similar symptoms. He reports that he improved over the weekend but this morning he was continuing to have left arm tingling and substernal chest pain with jaw tingling. At home, he took one SL nitro at 0945, a second one at 1045 today. This past weekend he did take two Nitro SL. Reports since , he took 8-10 SL Nitro. Chest pain appears to be non-exertional. Follows with Dr. Golden of cardiology. No leukocytosis otherwise CHEM panel unremarkable. Troponin negative. EKG without ischemic changes. 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 Patient will be admitted for further evaluation and management of his anginal chest pain. Will obtain echocardiogram, trend Troponin and place formal cards consultation. Stable Angina: Chest pain: Acute PCU for admit Intermittent since last Took 8-10 Nitro since last Currently CP free Troponin remains negative today 6.4; trend x1 ECHO ordered NPO after MN pending Cards Review Heart Healthy Diet Cardiology consultation placed CAD: Chronic Status post PCI LAD x 2 ZIYAD in 2008 Received ASA 324 mg in ED Takes baby aspirin;continue A-fib: On anticoagulation therapy: Chronic Status post ablation in [address] Golden cardiology Takes Eliquis; continue Parkinson's disease: Chronic Follows with neurology Dr. Jackson at [facility] Takes Sinemet ER/IR combination;continue Last appointment 12/23/2023 reports worsening difficulty with multitasking and concentration. Rivastigmine was recommended for home trial for snoring and insomnia and concentration issues.; this has not been started yet. 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 HTN: Chronic Takes lisinopril;continue HLD: Chronic Last panel 10/07/2023 TG 43, HDL 61, LDL 72 Repeat fasting lipid panel in a.m. On high-dose atorvastatin;continue Disposition: PCP: Dr. Peterson CODE STATUS: Full code VTE prophylaxis: On Vivek I spent a total of 88 minutes coordinating, documenting, and providing care for this patient excluding time spent in the performance of separately billed services. All of the aforementioned completed while collaborating with the assigned attending physician for a full treatment plan. Please see their addendum for further details. History of Present Illness Chief Complaint: chest pain Primary Care Provider: Dominick Peterson MD Mr. Shetty is a 73-year-old male with a medical history that includes CAD s/p LAD x2 stents 2008 and AF s/p Ablation 2019; presents to the ED today with complaints of chest pain after being seen by his PCP as an outpatient this morning. He did present to the ER last for similar symptoms. He reports that he improved over the weekend but this morning he was continuing to have left arm tingling and substernal chest pain with jaw tingling. At home, he took one SL nitro at 0945, a second one at 1045 today. This past weekend he did take two Nitro SL. Reports since , he took 8-10 SL Nitro. Chest pain appears to be non-exertional. Follows with Dr. Golden of cardiology. He started taking an exercise class one month ago which is one hour of constant motion. No ZARATE with going up a flight of stairs. Has had increased anxiety over the day-to-day things; like planning a trip. He does not eat as much, does not have a lack of appetite. No significant shifts with weight and no diets. He has slowed his caffeine intake; drinks 1-2 cups of decaf coffee daily. Past medical history includes stable CAD status post LAD x 2 stents 2008, A-fib status post ablation 2019, HTN, HLD, Parkinson's disease, BPH, and OA. Uses chewing tobacco and quit smoking cigarettes 20+ years ago. Drinks alcohol occastionally with dinner, no recreational drugs including medical marijuana. No leukocytosis otherwise CHEM panel unremarkable. Troponin negative. EKG without ischemic changes. 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 He does know about this finding previously and was a retired coal [employer] ner. Patient was given loading dose aspirin in the ED and sublingual nitro that improved patient's symptoms. Per outpatient review he follows with Dr. Jackson [facility] neurology for his Parkinson's disease. Last appointment 12/23/2023 reports worsening difficulty with multitasking and concentration. Rivastigmine was recommended for home trial for snoring and insomnia and concentration issues. 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 Pt denies LAO, dizziness, visual or auditory changes, current chest pain, pal pitations, SOB, abdominal pain or tenderness, N/V/D, , dysuria, hematochezia, recent falls or trauma. Patient will be admitted for further evaluation and management of his anginal chest pain. Will obtain echocardiogram, trend Troponin and place formal cards consultation. Allergies Allergy/AdvReac Type Severity Reaction Status Date / Time acetazolamide AdvReac Severe Tachycardia Verified 11/04/22 10:18 amlodipine AdvReac Severe hypotension Verified 11/04/22 10:18 Home Medications Medication Instructions Recorded Confirmed Type coenzyme Q10 100 mg capsule 100 mg PO QAM 08/10/18 01/02/24 History glucosamine-chondroitin 250 mg-200 2 tab PO QAM 08/10/18 01/02/24 History mg tablet (Osteo Bi-Flex) loratadine 10 mg tablet 10 mg PO DAILY PRN allergies 08/10/18 01/02/24 History multivitamin 1 tab PO QAM 08/10/18 01/02/24 History omega 7-mxi-eht-fish oil 1,000 mg 2 cap PO QAM 01/29/20 01/02/24 History (120 mg-180 mg) capsule (Fish Oil) atorvastatin 80 mg tablet 80 mg PO PM #90 tabs 02/13/20 01/02/24 Rx psyllium husk 0.4 gram capsule 0.4 g PO QPM 08/26/20 01/02/24 History (Metamucil) nitroglycerin 0.4 mg sublingual 0.4 mg sublingual Q5M PRN Chest 07/06/21 01/02/24 History tablet Pain lisinopril 10 mg tablet 10 mg PO QAM 11/18/21 01/02/24 History ibuprofen 400 mg tablet 400 mg PO Q8H PRN Pain 03/29/22 01/02/24 History acetaminophen 500 mg tablet 1,000 mg (2 x 500 mg) PO Q8 PRN 03/31/22 01/02/24 Rx (Tylenol Extra Strength) headache #30 tabs apixaban 5 mg tablet (Eliquis) 5 mg PO BID 06/03/22 01/02/24 History aspirin 81 mg tablet,delayed 81 mg PO DAILY 06/03/22 01/02/24 History release (Adult Aspirin Regimen) valacyclovir 1 gram tablet 2,000 mg (2 x 1 gram) PO Q12H PRN 06/03/22 01/02/24 Rx cold sores #30 tabs gabapentin 100 mg capsule 100 mg PO TID #90 caps 09/30/22 01/02/24 Rx carbidopa 25 mg-levodopa 100 mg 1 tab PO TID 01/02/24 01/02/24 History tablet carbidopa ER 50 mg-levodopa 200 mg 1 tab PO QPM 01/02/24 01/02/24 History tablet,extended release melatonin 6 mg PO DAILY 01/02/24 01/02/24 History Past Med/Surg History Medical History Headache Parkinson's disease NEW DX 09/03/21 Hx of esophageal reflux Migraines History of atrial fibrillation CARDIAC ABLATION 2019 Seasonal allergies Osteoarthritis On anticoagulant therapy Myocardial infarction 2008 Hypertension Hyperlipidemia Surgical History History of cardiac cath 2014-no stents-- follows with Dr. Valdez H/O cardiac radiofrequency ablation 2019 [place] teeth removed History of cataract surgery RT/LEFT Hx of heart artery stent 2008 x 2 (DONE AT [place]) FOLLOWED BY DR. GOLDEN Hx of vitrectomy RT History of tonsillectomy and adenoidectomy Hx of colonoscopy Hx of esophagogastroduodenoscopy Hx of arthroscopy of right knee Hx of arthroscopy of left knee History of brain shunt 2009--posterior benign cyst removal, "a piece of tubing sits at site to keep cyst from regrowing" @ [facility] Family History Father Coronary heart disease Heart disease Peripheral arterial disease Hypertension Mother Allergies Hypertension Cardiomyopathy Brother History of kidney cancer Cancer Grandfather Stroke Uncle Myocardial infarction Other No family history of adverse response to anesthesia Denies family history of Ovarian cancer Prostate cancer Diabetes Breast cancer Lung cancer Colorectal cancer Asthma Social History Smoking Status: Never smoker Tobacco Type: Smokeless Tobacco (Dip or Chew) packs per day: 0.5; Second Hand Exposure: No; Do You Dip or Chew Tobacco: Yes; Hx Alcohol Use: Yes Alcohol type: wine Alcohol Intake Frequency: 4 or More x per/Week Alcohol Intake Frequency Comment: 1-3 drinks 5 days a week Hx Substance Use: No Preferred Language: Mongolian Communication Ability: Effective Visual Impairment: Limited Hearing Ability: Use of Hearing Aid Clinical Lab Specialist Required: No Beliefs That Will Affect Care: None marital status: Current Living Situation: Spouse Current Living Situation Comment: with current occupational status: retired 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 How many Children do You have: 2 Other Information That Helps Us Care for You: No Feels Safe at Home: Yes Safety Concerns: Feels Safe At This Time Childhood Exposure to Second-Hand Smoke: Yes caffeine: Yes Dental Care, Regularly: Yes Physical Activity Frequency: Daily Seatbelt Use: always Sunscreen Use: Yes Assistive Devices: Cane Review of Systems Review of Systems: Neuro: (-) Falls, trauma, slurred speech HEENT: (-) LAO, dizziness, dysphagia, visual or auditory changes CV: (+) CP, (-) palpitations, swelling Resp: (-) SOB GI: (-) appetite changes, N/V/D, bowel changes : (-) urinary changes Skin: (-) rashes Psych: (-) anxiety, depression Physical Exam Physical Exam: Neuro: AAOx4, PERRLA, no aphagia, memory changes, CNII-XII grossly intact. NIH zero. HEENT: head normocephalic, moist mucus membranes CV: S1/S2, (-) M/G/R, (-) edema, cap refill < 3 seconds. euvolemic on exam Resp: Lungs CTA in all wright. On RA GI: Abdomen S/NT/ND, Ax4 bowel sounds, (-) CVA tenderness Musculoskeletal: 5/5 B/L UE strength, 5/5 B/L LE strength. No gait disturbance Skin: (-) rashes , (-) erythema. Psych: euthymic mood Results & Data Results & Data Vital Signs (Past 12 Hours) Vital Signs Temp Pulse Pulse Resp BP Pulse Ox O2 Del Method 01/02/24 13:06 97 Room Air 01/02/24 13:06 68 18 96 Room Air 01/02/24 13:06 Room Air 01/02/24 13:04 67 01/02/24 12:13 36.5 C 89 20 110/70 97 Room Air Laboratory Results Short CBC 01/02/24 Range/Units 12:39 WBC 5.61 (4.8-10.8) K/ul Hgb 14.3 (14.0-18.0) g/dl Hct 41.7 L (42.0-52.0) % Plt Count 299 (130-400) K/uL BMP 01/02/24 12:39 Sodium 137 Potassium 4.3 Chloride 105 Carbon Dioxide 28 BUN 19 Creatinine 0.81 Glucose 106 H Calcium 9.5 Liver Function 01/02/24 Range/Units 12:39 Total Bilirubin 0.4 (0.2-1.0) mg/dl AST 16 (13-39) U/L ALT 5 L (7-52) U/L Alkaline Phosphatase 38 (34-104) U/L Albumin 4.2 (3.4-5.0) gm/dl Diagnostic Findings Chest X-Ray 01/02/24 12:17 XR chest 1V not portable HISTORY: 73 years-old Male Chest pain, nonspecific COMPARISON: 12/29/2023 TECHNIQUE: AP view the chest FINDINGS: Calcified pleural plaques redemonstrated. Cardiomegaly with coronary arterial stenting. No pneumothorax, pleural effusion or airspace consolidation. Bones appear grossly intact. IMPRESSION: 1. No acute process. 2. 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 ACT 112: Negative or not required by law. The above report was generated using voice recognition software. It may contain grammatical, syntax or spelling errors. Electronically signed by: Duke Hallman M.D. 01/02/2024 1:35 PM Code Status & VTE Plan Code Status Full code in the event of cardiac respiratory arrest VTE Prophylaxis Plan VTE Prophylaxis will be ordered: Yes Supervising Physician Co-Signing Physician Notes Patient is a 73-year-old male with past medical history of hyperlipidemia, paroxysmal A-fib status post pulmonary vein isolation ablation, CAD with stenting LAD in 2009, Parkinson's disease presents with chest discomfort intermittently for several days. High-sensitivity troponin negative Chest x-ray personally reviewed; no acute findings EKG shows normal sinus rhythm with no significant ST or T wave changes On aspirin, statin Will need echocardiogram. Cardio consult for possible stress test/left heart cath given history of LAD stent. On physical examination; Constitutional: WD/WN, vitals as above, NAD, sitting up in bed, pleasant, conversing easily Respiratory: normal respiratory effort, lungs clear to auscultation, no wheeze, rales, rhonchi. Normal insp/exp effort, no accessory muscle use Cardiovascular: RRR, no murmur, no edema Vessels: no JVD or carotid bruit Chest: normal inspection of chest Abdomen: normal bowel sounds, soft, nontender, no hepatosplenomegaly Musculoskeletal: no cyanosis or clubbing, extremities motor strength 5/5 Skin: no rashes, warm and dry normal turgor Neurologic: PERRL, EOMI, accommodation nl, no face palsy, no dysarthria CN's II- XI intact bilaterally and moves all extremities Psychiatric: A+Ox3, euthymic affect I have reviewed the advanced practitioner's documentation, and I agree with, and take responsibility for the plan of care I spent a total of 25 minutes coordinating, documenting, and providing care for this patient excluding time spent in the performance of separately billed services. All of the aforementioned completed while collaborating with the assigned advanced practitioner for a full treatment plan Please note the above document was generated using voice recognition software. It may contain grammatical, syntax or spelling errors. Any formal questions or concerns about the content, text or information contained within the body of this dictation should be directly addressed to the provider for clarification (1) Chest pain Chest pain type: unspecified Qualified Code(s): R07.9 - Chest pain, unspecified
--- NOTE | 2024-01-02 15:34 | Cardiology Consultation ---
Date of Consultation January 02, 2024 Assessment & Plan (1) Anginal chest pain at rest: (2) Hypertension: (3) Parkinson's disease: (4) Stented coronary artery: Plan Patient is a 73-year-old male with known coronary artery disease with initial diagnosis 2008 undergoing left anterior descending stent, PCI x 2. Last cardiac catheterization 2014 for chest discomfort demonstrated patent stent, 50% proximal left and descending stenosis, narrowing to the origin of diagonal, moderate irregularities of 30% or less within the circumflex and diffuse disease within a codominant right coronary artery. Patient with stable class I angina pectoris until recent symptoms. No recurrence of arrhythmias and patient appropriately anticoagulated with Eliquis Plan: No acute injury by EKG or enzymes. Hold Eliquis this evening. N.p.o. after midnight Patient on JACQUELINE inhibitor, statin. Beta-octavio not being used due to past bradycardia. Will need intensification of lipid therapy possible addition of ezetimibe. Last LDL 72s Refer for diagnostic coronary angiography in a.m. History of Present Illness Reason for Consultation: Chest pain, angina Requesting Physician: Hospitalist Attending Physician: Darrell Soto MD History of Present Illness Patient is a 73-year-old male whose ongoing issues include 1. Chronic coronary artery disease status post LAD stent 2009 cardiac catheterization 2014 50% proximal left anterior descending, 70 to 80% first diagonal, diffuse disease codominant right coronary 2. Paroxysmal atrial fibrillation/flutter status post pulmonary vein isolation ablation, cavotricuspid isthmus ablation 06/19/2020 3. Hyperlipidemia 4. Hypertension 5. Parkinsonism Patient is referred for consultation after presenting to the ER with recurrent chest pain. Notes having been seen 4 days prior in the emergency room with chest pain relieved by nitroglycerin. Patient at that time sought not to stay in the hospital and left AGAINST MEDICAL ADVICE. Returns now noting intermittent chest pain since hospital release. Has used 8- 10 sublingual nitroglycerin with relief of symptoms. No sustained episodes. No specific exertional relationship. Has not awakened him from sleep. Symptoms described as substernal chest pain with radiation to the jaw left arm with tingling in the left hand He denies fevers chills sweats. No recent illness. No orthopnea PND or peripheral edema. Appetite and weight are stable. No bleeding difficulties. Chronically anticoagulated with Eliquis with good tolerance. No prior difficulties with sedation, no contrast allergies. Allergies Allergy/AdvReac Type Severity Reaction Status Date / Time acetazolamide AdvReac Severe Tachycardia Verified 11/04/22 10:18 amlodipine AdvReac Severe hypotension Verified 11/04/22 10:18 Home Medications Medication Instructions Recorded Confirmed Type coenzyme Q10 100 mg capsule 100 mg PO QAM 08/10/18 01/02/24 History glucosamine-chondroitin 250 mg-200 2 tab PO QAM 08/10/18 01/02/24 History mg tablet (Osteo Bi-Flex) loratadine 10 mg tablet 10 mg PO DAILY PRN allergies 08/10/18 01/02/24 History multivitamin 1 tab PO QAM 08/10/18 01/02/24 History omega 7-uyx-csv-fish oil 1,000 mg 2 cap PO QAM 01/29/20 01/02/24 History (120 mg-180 mg) capsule (Fish Oil) atorvastatin 80 mg tablet 80 mg PO PM #90 tabs 02/13/20 01/02/24 Rx psyllium husk 0.4 gram capsule 0.4 g PO QPM 08/26/20 01/02/24 History (Metamucil) nitroglycerin 0.4 mg sublingual 0.4 mg sublingual Q5M PRN Chest 07/06/21 01/02/24 History tablet Pain lisinopril 10 mg tablet 10 mg PO QAM 11/18/21 01/02/24 History ibuprofen 400 mg tablet 400 mg PO Q8H PRN Pain 03/29/22 01/02/24 History acetaminophen 500 mg tablet 1,000 mg (2 x 500 mg) PO Q8 PRN 03/31/22 01/02/24 Rx (Tylenol Extra Strength) headache #30 tabs apixaban 5 mg tablet (Eliquis) 5 mg PO BID 06/03/22 01/02/24 History aspirin 81 mg tablet,delayed 81 mg PO DAILY 06/03/22 01/02/24 History release (Adult Aspirin Regimen) valacyclovir 1 gram tablet 2,000 mg (2 x 1 gram) PO Q12H PRN 06/03/22 01/02/24 Rx cold sores #30 tabs gabapentin 100 mg capsule 100 mg PO TID #90 caps 09/30/22 01/02/24 Rx carbidopa 25 mg-levodopa 100 mg 1 tab PO TID 01/02/24 01/02/24 History tablet carbidopa ER 50 mg-levodopa 200 mg 1 tab PO QPM 01/02/24 01/02/24 History tablet,extended release melatonin 6 mg PO DAILY 01/02/24 01/02/24 History Patient History Medical History Headache Parkinson's disease NEW DX 09/03/21 Hx of esophageal reflux Migraines History of atrial fibrillation CARDIAC ABLATION 2019 Seasonal allergies Osteoarthritis On anticoagulant therapy Myocardial infarction 2009 Hypertension Hyperlipidemia Surgical History History of cardiac cath 2014-no stents-- follows with Dr. Valdez H/O cardiac radiofrequency ablation 2019 [place] teeth removed History of cataract surgery RT/LEFT Hx of heart artery stent 2009 x 2 (DONE AT [place], [place]) FOLLOWED BY DR. HARTLEY Hx of vitrectomy RT History of tonsillectomy and adenoidectomy Hx of colonoscopy Hx of esophagogastroduodenoscopy Hx of arthroscopy of right knee Hx of arthroscopy of left knee History of brain shunt 2009--posterior benign cyst removal, "a piece of tubing sits at site to keep cyst from regrowing" @ [facility] Family History Father Coronary heart disease Heart disease Peripheral arterial disease Hypertension Mother Allergies Hypertension Cardiomyopathy Brother History of kidney cancer Cancer Grandfather Stroke Uncle Myocardial infarction Other No family history of adverse response to anesthesia Denies family history of Ovarian cancer Prostate cancer Diabetes Breast cancer Lung cancer Colorectal cancer Asthma Social History Smoking Status: Never smoker Tobacco Type: Smokeless Tobacco (Dip or Chew) packs per day: 0.5; Second Hand Exposure: No; Do You Dip or Chew Tobacco: Yes; Hx Alcohol Use: Yes Alcohol type: beer and wine Alcohol Intake Frequency: 4 or More x per/Week Alcohol Intake Frequency Comment: 1-3 drinks 5 days a week Hx Substance Use: No Preferred Language: Turkish Communication Ability: Effective Visual Impairment: Limited Hearing Ability: Use of Hearing Aid Electric Stove Mechanic Required: No Beliefs That Will Affect Care: None marital status: Current Living Situation: Spouse Current Living Situation Comment: with current occupational status: retired 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 How many Children do You have: 2 Feels Safe at Home: Yes Childhood Exposure to Second-Hand Smoke: Yes caffeine: Yes Dental Care, Regularly: Yes Physical Activity Frequency: Daily Seatbelt Use: always Sunscreen Use: Yes Assistive Devices: None Physical Exam Constitutional: WD/WN, vitals as above no acute distress Tall , thin Eyes: PERRL, conjunctivae normal, anicteric sclerae ENMT: external ear and nose normal, oropharynx normal Neck: trachea midline, no thyromegaly Respiratory: normal respiratory effort, lungs clear to auscultation Cardiovascular: Rate/Rhythm: regular rate and regular rhythm Heart Sounds: normal S1 and normal S2; no gallop and no murmur Vessels: femoral pulses present and radial pulses present; no JVD Extremities: no edema Gastrointestinal (Abdomen): normal bowel sounds, soft, nontender, no hepatosplenomegaly Musculoskeletal: no cyanosis or clubbing, extremities motor strength 5/5 Results & Data Vital Signs (Past 12 Hours) Vital Signs Temp Pulse Pulse Resp BP BP Pulse Ox 01/02/24 15:14 71 16 98 01/02/24 14:15 59 L 18 116/59 L 96 01/02/24 14:15 59 L 18 96 01/02/24 13:06 97 01/02/24 13:06 68 18 96 01/02/24 13:06 01/02/24 13:04 67 01/02/24 12:13 36.5 C 89 20 110/70 97 O2 Del Method 01/02/24 15:14 Room Air 01/02/24 14:15 Room Air 01/02/24 14:15 Room Air 01/02/24 13:06 Room Air 01/02/24 13:06 Room Air 01/02/24 13:06 Room Air 01/02/24 13:04 01/02/24 12:13 Room Air Laboratory Results Laboratory Results - last 24 hr 01/02/24 01/02/24 12:39 14:57 WBC 5.61 RBC 4.70 Hgb 14.3 Hct 41.7 L MCV 88.7 MCH 30.4 MCHC 34.3 RDW Std Deviation 39.8 RDW Coeff of Marissa 12.1 Plt Count 299 MPV 9.5 Immature Gran % (Auto) 0.4 Neut % (Auto) 72.6 Lymph % (Auto) 16.9 Avery % (Auto) 8.6 Eos % (Auto) 1.1 Baso % (Auto) 0.4 Neut # (Auto) 4.08 Lymph # (Auto) 0.95 L Avery # (Auto) 0.48 Eos # (Auto) 0.06 Baso # (Auto) 0.02 Immature Gran # (Auto) 0.02 PT 11.3 INR 1.0 APTT 28 PTT Ratio 1.0 Sodium 137 Potassium 4.3 Chloride 105 Carbon Dioxide 28 Anion Gap 4 BUN 19 Creatinine 0.81 Est Cr Clr Drug Dosing 94.5 Est GFR ( Amer) 103.6 Est GFR (Non-Af Amer) 89.4 BUN/Creatinine Ratio 23.5 H Glucose 106 H Calcium 9.5 Total Bilirubin 0.4 AST 16 ALT 5 L Alkaline Phosphatase 38 Troponin I High Sens 6.2 6.9 Total Protein 6.8 Albumin 4.2 Globulin 2.6 Albumin/Globulin Ratio 1.6 Diagnostic Findings EKG: Sinus bradycardia with otherwise normal tracing (2) Hypertension Hypertension type: unspecified Qualified Code(s): I10 - Essential (primary) hypertension
--- NOTE | 2024-01-02 15:45 | Electrocardiogram Report ---
Test Reason : Blood Pressure : / mmHG Vent. Rate : 078 BPM Atrial Rate : 078 BPM P-R Int : 156 ms QRS Dur : 084 ms QT Int : 366 ms P-R-T Axes : 076 050 044 degrees QTc Int : 417 ms Normal sinus rhythm Normal ECG When compared with ECG of 29-DEC-2023 17:14, No significant change was found Confirmed by En Mcclelland ([id number]) on 01/02/2024 3:45:01 PM Referred By: REFERRED SELF Confirmed By:En Mcclelland
[2024-01-02] MEDS: CARBIDOPA/LEVODOPA 25/100MG TAB PO SCH (20:15)
[2024-01-02] MEDS: ATORVASTATIN 40 MG TAB PO SCH (20:15)
[2024-01-02] MEDS: GABAPENTIN 100 MG CAP PO SCH (20:16)
[2024-01-02] MEDS: CARBIDOPA/LEVODOPA 50/200MG EXT REL TAB PO SCH (20:16)
[2024-01-02] MEDS ORDERED: CARBIDOPA/LEVODOPA 25/100MG TAB PO SCH (21:00)
[2024-01-02] MEDS ORDERED: APIXABAN 5 MG TABLET PO SCH (21:00)
[2024-01-02] MEDS ORDERED: CARBIDOPA LEVODOPA ENTACAPONE PO SCH (21:00)
[2024-01-02] MEDS ORDERED: Nursing to Pharmacy Communication SCH (21:00)
[2024-01-02] MEDS ORDERED: CARBIDOPA/LEVODOPA 50/200MG EXT REL TAB PO SCH (21:00)
[2024-01-02] MEDS: SODIUM CHLORIDE 0.9% 1,000 ML IV SCH (23:58)
[2024-01-03 07:30] LABS: Hematocrit (blood only) 43.8 % (42.0-52.0); Hemoglobin 14.1 g/dl (14.0-18.0); Mean Corpuscular Hemoglobin 29.6 pg (25.0-34.0); Mean Corpuscular Hgb Conc 32.2 g/dL (32.0-36.0); Mean Corpuscular Volume 91.8 fL (80.0-100.0); Mean Platelet Volume 9.2 fL (9.4-12.4); Platelet Count 272 K/uL (130-400); RDW Coefficient of Variation 12.3 % (11.5-14.5); RDW Standard Deviation 41.6 fL (36.4-46.3); Red Blood Count 4.77 M/uL (4.70-6.10); White Blood Count 4.96 K/ul (4.8-10.8)
[2024-01-03] MEDS: ASPIRIN 81 MG ECTAB PO SCH (07:31)
[2024-01-03] MEDS: lisinopril 10 MG TAB PO SCH (07:32)
[2024-01-03] MEDS: CARBIDOPA/LEVODOPA 25/100MG TAB PO SCH (07:32)
[2024-01-03 07:49] LABS: Albumin Globulin Ratio 1.5 (0.9-2); Bilirubin,Total 0.6 mg/dl (0.2-1.0); Calcium 9.2 mg/dl (8.6-10.3); Creatinine Clr Calc Pharmacy 90.1 ml/min; Est GFR (African American) 101.6 ml/min; Est GFR (Non-African American) 87.7 ml/min; Globulin 2.6 gm/dl (2.5-4.0); Magnesium 1.9 mg/dl (1.7-2.4); Potassium 4.3 mmol/L (3.5-5.1); Total Protein 6.6 gm/dl (6.0-8.3)
--- NOTE | 2024-01-03 08:39 | Pre Anesthesia Assessment ---
Date of Service January 03, 2024 Pre Sedation Assessment Vital Signs Temp Pulse Pulse Resp BP BP Pulse Ox 01/03/24 07:58 55 L 14 141/85 H 97 01/03/24 07:42 97.9 F 53 L 17 143/76 H 96 01/03/24 02:53 98.1 F 51 L 16 149/78 H 95 01/02/24 22:52 98.2 F 56 L 16 145/79 H 95 01/02/24 21:54 56 L 01/02/24 19:00 98.4 F 57 L 16 125/72 95 01/02/24 16:09 62 01/02/24 15:14 71 16 98 01/02/24 15:13 98.1 F 52 L 18 136/72 96 01/02/24 14:15 59 L 18 116/59 L 96 01/02/24 14:15 59 L 18 96 01/02/24 13:06 97 01/02/24 13:06 68 18 96 01/02/24 13:06 01/02/24 13:04 67 01/02/24 12:13 97.7 F 89 20 110/70 97 O2 Del Method 01/03/24 07:58 Room Air 01/03/24 07:42 Room Air 01/03/24 02:53 Room Air 01/02/24 22:52 Room Air 01/02/24 21:54 01/02/24 19:00 Room Air 01/02/24 16:09 01/02/24 15:14 Room Air 01/02/24 15:13 Room Air 01/02/24 14:15 Room Air 01/02/24 14:15 Room Air 01/02/24 13:06 Room Air 01/02/24 13:06 Room Air 01/02/24 13:06 Room Air 01/02/24 13:04 01/02/24 12:13 Room Air Cardiovascular + regular rate Respiratory + respiratory effort normal Pre-Sedation Airway Assessment Smoking Status: Never smoker Hx Sleep Apnea: No Hx Difficult Intubation: No Short, Thick Neck: No Thyromental Distance: > or= 3.5 Finger Breadths Oral Cavity: + WNL Mallampati Class: II ASA: ASA2 NPO Status Date of Last Intake of Fluids: 01/02/24 Time of Last Intake of Fluids: 20:00 Date of Last Intake of Solid Food: 01/02/24 Time of Last Intake of Solid Foods: 20:00 Procedure Planning Contraindications for Sedation: none Current Medications Reviewed: Yes Notes The planned sedation has been discussed with the patient. Informed Consent was obtained. I have identified the patient, determined the appropriateness of sedation and have assessed the patient immediately prior to the procedure. All medicine(s) and interventions are by my order.
[2024-01-03] MEDS ORDERED: NON-FORMULARY MEDICATION (Glucosamine-Chondroitin [Osteo Bi-Flex] 250-200 mg Tablet) PO SCH (09:00)
[2024-01-03] MEDS ORDERED: NON-FORMULARY MEDICATION (Coenzyme Q10 100 mg Capsule) PO SCH (09:00)
[2024-01-03] MEDS: fentaNYL citrate PF 100 MCG/2 ML VIAL ONE ×2 (09:43→09:46)
[2024-01-03] MEDS: MIDAZOLAM HCL 1 MG/ML 2ML VIAL ONE ×2 (09:44→09:46)
[2024-01-03] MEDS: NITROGLYCERIN/D5W 100MCG/ML 20ML SYR ONE (09:45)
[2024-01-03] MEDS: niCARdipine HCL INJ 2.5 MG/ML 10 ML AMP ONE (09:45)
[2024-01-03] MEDS: OPTIRAY 350 ONE (09:50)
[2024-01-03] MEDS: HEPARIN (PORCINE) 1000 UNIT/ML 10 ML (CATH LAB USE ONLY) ONE (10:37)
--- NOTE | 2024-01-03 11:44 | Post Anesthesia Assessment ---
Date of Service January 03, 2024 Post Sedation Assessment Vital Signs Temp Pulse Pulse Resp BP BP BP 01/03/24 10:27 98.1 F 50 L 18 144/74 H 01/03/24 10:15 51 L 16 137/74 01/03/24 10:00 51 L 16 141/74 H 01/03/24 07:58 55 L 14 141/85 H 01/03/24 07:42 97.9 F 53 L 17 143/76 H 01/03/24 02:53 98.1 F 51 L 16 149/78 H 01/02/24 22:52 98.2 F 56 L 16 145/79 H 01/02/24 21:54 56 L 01/02/24 19:00 98.4 F 57 L 16 125/72 01/02/24 16:09 62 01/02/24 15:14 71 16 01/02/24 15:13 98.1 F 52 L 18 136/72 01/02/24 14:15 59 L 18 116/59 L 01/02/24 14:15 59 L 18 01/02/24 13:06 01/02/24 13:06 68 18 01/02/24 13:06 01/02/24 13:04 67 01/02/24 12:13 97.7 F 89 20 110/70 Pulse Ox O2 Del Method 01/03/24 10:27 96 Room Air 01/03/24 10:15 95 Room Air 01/03/24 10:00 95 Room Air 01/03/24 07:58 97 Room Air 01/03/24 07:42 96 Room Air 01/03/24 02:53 95 Room Air 01/02/24 22:52 95 Room Air 01/02/24 21:54 01/02/24 19:00 95 Room Air 01/02/24 16:09 01/02/24 15:14 98 Room Air 01/02/24 15:13 96 Room Air 01/02/24 14:15 96 Room Air 01/02/24 14:15 96 Room Air 01/02/24 13:06 97 Room Air 01/02/24 13:06 96 Room Air 01/02/24 13:06 Room Air 01/02/24 13:04 01/02/24 12:13 97 Room Air Recovery Score Activity: Moves 4 extremities Respiration: Deep Breath/Cough Circulation: +/-20% PreAnes Value Consciousness: Fully Awake Oxygen Saturation: > 92% On Room Air Post Anesthesia Score: 10 Discharge Sedation Level of Care: Fast Track Phase II Post Sedation Plan On clinical assessment, the patient appears to have tolerated the sedation without complications. Patient is recovering as anticipated. Patient will continue to be monitored by nursing and may be discharged when sedation discharge criteria are met per below protocol. Upon Completions of procedure up to 15 minutes continue every 5 minute vital signs and the P.A.R. score; then discharge to a Phase I or Fast Track to Phase II per the following guidelines: * Discharge Patient to appropriate Phase II area if PAR is 8 or greater or return to pre- procedure baseline. The post - procedure orders will be as directed. * If PAR score is less than 8 or not return to pre-procedure baseline then pat ient will follow Phase I monitoring till PAR is reached for Phase II. The Phase I may be done in procedure room or may call to secure a Phase I area. * If naloxone or flumazenil are used for reversal, hold in Phase I for continued monitoring from when last reversal dose was given for a minimum of 60 minutes or longer pending the nurse and/or physician discretion of patient condition before discharge to Phase II. Please call the Sedation Physician to re-evaluate and complete post-note for discharge to Phase II area. Do NOT discharge from procedure sedation or Phase 1 until post- sedation evaluation note is complete by procedure /sedation MD Sedation Discharge Instructions to be given to the patient at discharge to home.
--- NOTE | 2024-01-03 12:02 | Cardiac Catheterization ---
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 Cardiac Status Clinical evaluation leading to the procedure CAD Presenation: Unstable angina Anginal Classification: CCS IV Diagnostic Physicians Name: Danie Valdez MD Closure Device Recommendations: Medical Therapy and/or Counseling Cardiac Cath Procedure Full Procedure Date January 03, 2024 Pre-Procedure Diagnosis Pre-Procedure Diagnosis: Angina AUC Score AUC Score: 7 Post-Procedure Diagnosis Post-Procedure Diagnosis: Severe CAD and Normal Intracardiac Pressures Procedure(s) Performed Procedure(s) Performed: Coronary Angiography, Left Heart Cath and Ultrasound Guided Vascular Access Parole Or Probation Officer Danie Valdez MD Performance Improvement Consultant(s) Doreen Estimated Blood Loss Estimated Blood Loss: 15 Medication(s) Medication(s): Fentanyl, Heparin, Lidocaine 1%, Nicardipine, Nitroglycerin and Versed Summary of Findings Indication: Suspected unstable angina Access: 6 Fr right radial artery. Radial artery loop and forearm. Able to traverse with glide advantage wire, [place] catheter but unable to torque catheter and ascending aorta. Unable to pass long sheath or additional catheters across loop and converted to right SAW GRINDER approach under ultrasound guidance with placement of 5 Fr sheath. Catheters: [place], JR4, JL 4 Findings: LM -large caliber, no significant disease LAD -medium caliber vessel proximal to mid stents patent with 40% in-stent restenosis at takeoff of D2 distal vessel without significant disease and wraps around apex. Medium jailed D3 with 90% ostial stenosis Circumflex -dominant, large caliber, mid segment luminal irregularities, medium OM3 with 50% proximal to mid disease. Left PDA without significant disease. RCA -small, nondominant, 70-80% sequential mid RCA lesions LVEDP -3 Arterial Closure: TR band Summary: 1. Multivessel coronary artery disease -Widely patent proximal to mid LAD stents with 40% in-stent restenosis. 90% ostial jailed third diagonal 50% proximal OM3 70 to 80% disease in small, nondominant RCA 2. Normal intracardiac filling pressure Recommendations: Current images compared with prior images from outside hospital 03/06/2015. LAD/diagonal disease largely unchanged. Some progression in OM 3 and nondominant RCA disease. On current angiography no acute or high risk findings to explain patient's recent onset intermittent rest pain requiring repeated sublingual nitroglycerin. Recommend trial of antianginal therapy. If refractory symptoms PCI of RCA, +/- FFR of OM 3 could be considered. Hemodynamics Rest Ao:: 120/59/87 Final Ao: 121/55/82 LV: 119/3 Recommendations Recommendations: Medical Therapy and/or Counseling Specimens Specimens: None Radiation Exposure (mGy) 530 Contrast (mls) 75 Anesthesia Moderate [id number] Procedural Complication(s) None Disposition PCU I attest to the content of the Intraoperative Record and any orders documented therein. Any exceptions are noted below. [facility] Card Cath Procedure Codes Cardiac Catheterization Procedure 1: Cardiovascular Cath Procedures: 50092 Coronaries and LHC (+/-LV) Therapeutic Services & Ancillary Procedure 1: Cardiovascular Tx and Anc Procedures: 77666 Ultrasonic Guidance Vascular Access Moderate Sedation Procedure 1: Sedation/Anesthesia: 24044 Mod Sedation by the same physician;Init15 Min Child Age 5 & Up Procedure 2: Sedation/Anesthesia: 07569 Mod Sedation by the same physician; Ea [id number] Minutes PG Care Time/CCT Total # of Minutes Spent Total Time Spent with Patient: Total time spent is greater than 50% in coordination of care (as documented) at patient's floor/unit and/or counseling patient:
--- NOTE | 2024-01-03 12:58 | Hospitalist Progress Note ---
Date of Service January 03, 2024 Assessment & Plan (1) Chest pain: (2) CAD (coronary artery disease): (3) Atrial fibrillation: (4) On anticoagulant therapy: (5) Parkinson's disease: (6) Hypertension: (7) Hyperlipidemia: (8) Osteoarthritis: Plan Mr. Shetty is a 73 y/o male with a medical history that includes CAD s/p LAD x2 stents 2008 and AF s/p Ablation 2019; presents to the ED today with complaints of chest pain after being seen by his PCP as an outpatient this morn ing. He did present to the ER last for similar symptoms. He reports that he improved over the weekend but this morning he was continuing to have left arm tingling and substernal chest pain with jaw tingling. At home, he took one SL nitro at 0945, a second one at 1045 today. This past weekend he did take two Nitro SL. Reports since , he took 8-10 SL Nitro. Chest pain appears to be non-exertional. Follows with Dr. Golden of cardiology. No leukocytosis otherwise CHEM panel unremarkable. Troponin negative. EKG without ischemic changes. 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 Patient was admitted for further evaluation and management of his anginal chest pain. Stable Angina: Chest pain: Intermittent since last SHADE CUTTER Took 8-10 Nitro since last SHADE CUTTER Admitting troponin x 4 were negative. EKG with no acute ST or T changes. Echo with EF of 65 to 70%, grade 1 diastolic dysfunction, LV wall motion is normal. Currently CP Free Status post heart cath 01/02, multivessel coronary disease. Cardiology on board, currently undergoing medical management. resume anticoagulation per post cath protocol CAD: Chronic Status post PCI LAD x 2 ZIYAD in 2008 Received ASA 324 mg in ED Takes baby aspirin;continue A-fib: On anticoagulation therapy: Chronic Status post ablation in [address] Golden cardiology Takes Eliquis; continue when able. Parkinson's disease: Chronic Follows with neurology Dr. Jackson at [place] Takes Sinemet ER/IR combination;continue Last appointment 12/23/2023 reports worsening difficulty with multitasking and concentration. Rivastigmine was recommended for home trial for snoring and insomnia and concentration issues.; this has not been started yet. 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 HTN: Chronic Takes lisinopril;continue HLD: Chronic Last panel 10/07/2023 TG 43, HDL 61, LDL 72 Repeat fasting lipid panel in a.m. On high-dose atorvastatin;continue Disposition: PCP: Dr. Peterson CODE STATUS: Full code VTE prophylaxis: SCDs I spent a total of 88 minutes coordinating, documenting, and providing care for this patient excluding time spent in the performance of separately billed services. All of the aforementioned completed while collaborating with the assigned attending physician for a full treatment plan. Please see their addendum for further details. Admission and Anticipated Discharge Date Admission Date: January 02, 2024 Subjective Patient was seen and examined at bedside. Patient was lying in bed, on room air, resting comfortably, not in any acute distress. Patient's at bedside. She was also updated on plan of care. Patient denies any chest pain or headache or nausea or vomiting or abdominal pain. Patient reports feeling better. Patient is status post heart cath. Physical Exam Physical Exam: Neuro: AAOx4, PERRLA, no aphagia, memory changes, CNII-XII grossly intact. NIH zero. HEENT: head normocephalic, moist mucus membranes CV: S1/S2, (-) M/G/R, (-) edema, cap refill < 3 seconds. euvolemic on exam Resp: Lungs CTA in all wright. On RA GI: Abdomen S/NT/ND, Ax4 bowel sounds, (-) CVA tenderness Musculoskeletal: 5/5 B/L UE strength, 5/5 B/L LE strength. No gait disturbance Skin: (-) rashes , (-) erythema. Psych: euthymic mood Results & Data Results & Data Vital Signs (Past 12 Hours) Vital Signs Temp Pulse Resp BP BP Pulse Ox O2 Del Method 01/03/24 11:58 Room Air 01/03/24 11:51 36.5 C 47 L 19 149/75 H 95 Room Air 01/03/24 10:27 36.7 C 50 L 18 144/74 H 96 Room Air 01/03/24 10:15 51 L 16 137/74 95 Room Air 01/03/24 10:00 51 L 16 141/74 H 95 Room Air 01/03/24 07:58 55 L 14 141/85 H 97 Room Air 01/03/24 07:42 36.6 C 53 L 17 143/76 H 96 Room Air 01/03/24 02:53 36.7 C 51 L 16 149/78 H 95 Room Air (1) Chest pain Chest pain type: unspecified Qualified Code(s): R07.9 - Chest pain, unspecified
[2024-01-03] MEDS: ACETAMINOPHEN 325 MG TAB PO PRN (15:48)
--- NOTE | 2024-01-03 17:46 | Cardiology Progress Note ---
Date of Service January 03, 2024 Assessment & Plan (1) Anginal chest pain at rest: (2) Hypertension: (3) Parkinson's disease: (4) Stented coronary artery: Plan Patient is a 73-year-old male with known coronary artery disease with initial diagnosis 2008 undergoing left anterior descending stent, PCI x 2. Last cardiac catheterization 2014 for chest discomfort demonstrated patent stent, 50% proximal left and descending stenosis, narrowing to the origin of diagonal, moderate irregularities of 30% or less within the circumflex and diffuse disease within a codominant right coronary artery. Patient with stable class I angina pectoris until recent symptoms. No recurrence of arrhythmias and patient appropriately anticoagulated with Eliquis Patient underwent repeat cardiac catheterization this morning 01/03/[address] Valdez. Right radial access unsuccessful and ultimately underwent right femoral arterial access. Previous LAD stent patent with 40% in-stent restenosis, 90% ostial stenosis of the third diagonal which is jailed by the LAD stent. 50% proximal OM 3, 70 to 80% disease in a small nondominant right coronary artery. Normal intracardiac filling pressure. From my discussion with the patient and his spouse, the jailed diagonal branch is a chronic finding as he recalls receiving plain balloon angioplasty for this in the past. Troponin negative x 3, EKG without ischemic changes yesterday. Patient's spouse questions if recent worsening anxiety related to his Parkinson's disease may be playing a role in his chest pain. Patient notes occasional headaches and lightheadedness, no recent falls. Recommendations: Ongoing medical therapy for coronary heart disease recommended. His baseline heart rate is in the 50s without beta-octavio and therefore I do not feel he would be a candidate for this. 1 option would be a topical nitroglycerin patch which could be removed if he was to have orthostatic hypotension related to his Parkinson's, but patient has headache issues at baseline especially around the time of when he takes his carbidopa/ levodopa and he is already concerned that he would not be able to tolerate topical nitrates. He describes having been on ranolazine in the past which was subsequently discontinued but patient cannot remember the specifics but believes it was due to intolerance. This is helpful, as I would speculate that if he was tried with ranolazine in the past but these symptoms are not new. Treatment of the anxiety may be best neck step, will discuss if he is a candidate to receive sertraline in the setting of carbidopa/levodopa with the hospital service. Continue aspirin, high intensity statin therapy, lisinopril. Increase activity on 01/04/24 and determine disposition then. Admission and Anticipated Discharge Date Admission Date: January 02, 2024 Subjective Patient seen in general cardiology follow-up status postcardiac catheterization today. No additional chest discomfort. Spouse, Carmela, accompanies him at the bedside. Telemetry reveals sinus bradycardia in the 50s. Physical Exam Constitutional: WD/WN, vitals as above no acute distress Eyes: PERRL, conjunctivae normal, anicteric sclerae ENMT: external ear and nose normal, oropharynx normal Neck: trachea midline, no thyromegaly Respiratory: normal respiratory effort, lungs clear to auscultation Cardiovascular: Rate/Rhythm: regular rate and regular rhythm Heart Sounds: normal S1 and normal S2; no gallop and no murmur Vessels: femoral pulses present and radial pulses present; no JVD Extremities: no edema Gastrointestinal (Abdomen): normal bowel sounds, soft, nontender, no hepatosplenomegaly Musculoskeletal: no cyanosis or clubbing, extremities motor strength 5/5 Results & Data Vital Signs (Past 12 Hours) Vital Signs Temp Pulse Resp BP BP Pulse Ox O2 Del Method 01/03/24 14:00 49 L 158/78 H 01/03/24 13:00 49 L 153/77 H 01/03/24 12:00 48 L 141/75 H 01/03/24 11:58 Room Air 01/03/24 11:51 36.5 C 47 L 19 149/75 H 95 Room Air 01/03/24 11:00 49 L 142/76 H 01/03/24 10:27 36.7 C 50 L 18 144/74 H 96 Room Air 01/03/24 10:15 51 L 16 137/74 95 Room Air 01/03/24 10:00 51 L 16 141/74 H 95 Room Air 01/03/24 07:58 55 L 14 141/85 H 97 Room Air 01/03/24 07:42 36.6 C 53 L 17 143/76 H 96 Room Air Laboratory Results Cardiac Enzymes 01/03/24 Range/Units 06:54 AST 14 (13-39) U/L CBC 01/03/24 Range/Units 06:54 WBC 4.96 (4.8-10.8) K/ul RBC 4.77 (4.70-6.10) M/uL Hgb 14.1 (14.0-18.0) g/dl Hct 43.8 (42.0-52.0) % Plt Count 272 (130-400) K/uL Comprehensive Metabolic Panel 01/03/24 Range/Units 06:54 Sodium 140 (136-145) mmol/L Potassium 4.3 (3.5-5.1) mmol/L Chloride 104 (98-107) mmol/L Carbon Dioxide 32 (21-32) mmol/L BUN 17 (6-23) mg/dl Creatinine 0.85 (0.6-1.4) mg/dl Glucose 102 H (70-99(Fasting)) mg/dl Calcium 9.2 (8.6-10.3) mg/dl AST 14 (13-39) U/L ALT 4 L (7-52) U/L Alkaline Phosphatase 40 (34-104) U/L Total Protein 6.6 (6.0-8.3) gm/dl Albumin 4.0 (3.4-5.0) gm/dl Intake and Output 01/03/24 01/03/24 01/03/24 06:59 14:59 22:59 Intake Total 0 / 0 Balance 0 / 0 Intake: Oral 0 / 0 Other: # Unmeasured Voids 1 Weight 82.4 kg Weight Measurement Method Built in [facility] (2) Hypertension Hypertension type: unspecified Qualified Code(s): I10 - Essential (primary) hypertension
[2024-01-04 06:56] LABS: Hematocrit (blood only) 40.8 % (42.0-52.0); Hemoglobin 13.6 g/dl (14.0-18.0); Mean Corpuscular Hemoglobin 30.3 pg (25.0-34.0); Mean Corpuscular Hgb Conc 33.3 g/dL (32.0-36.0); Mean Corpuscular Volume 90.9 fL (80.0-100.0); Mean Platelet Volume 9.4 fL (9.4-12.4); Platelet Count 258 K/uL (130-400); RDW Coefficient of Variation 12.1 % (11.5-14.5); RDW Standard Deviation 40.3 fL (36.4-46.3); Red Blood Count 4.49 M/uL (4.70-6.10); White Blood Count 5.34 K/ul (4.8-10.8)
[2024-01-04 07:33] LABS: BUN Creatinine Ratio 19.5 (10-20); Est GFR (African American) 100.6 ml/min; Est GFR (Non-African American) 86.8 ml/min; Magnesium 1.9 mg/dl (1.7-2.4); Phosphorus 3.5 mg/dl (2.5-4.9); Potassium 4.1 mmol/L (3.5-5.1)
[2024-01-04] MEDS: APIXABAN 5 MG TABLET PO SCH (09:26)
--- NOTE | 2024-01-04 15:54 | Cardiology Progress Note ---
Date of Service January 04, 2024 Assessment & Plan (1) Anginal chest pain at rest: (2) Hypertension: (3) Parkinson's disease: (4) Stented coronary artery: Plan Patient is a 73-year-old male with known coronary artery disease with initial diagnosis 2008 undergoing left anterior descending stent, PCI x 2. Last cardiac catheterization 2014 for chest discomfort demonstrated patent stent, 50% proximal left and descending stenosis, narrowing to the origin of diagonal, moderate irregularities of 30% or less within the circumflex and diffuse disease within a codominant right coronary artery. Patient with stable class I angina pectoris until recent symptoms. No recurrence of arrhythmias and patient appropriately anticoagulated with Eliquis Patient underwent repeat cardiac catheterization 01/03/[address] Valdez. Right radial access unsuccessful and ultimately underwent right femoral arterial access. Previous LAD stent patent with 40% in-stent restenosis, 90% ostial stenosis of the third diagonal which is jailed by the LAD stent. 50% proximal OM 3, 70 to 80% disease in a small nondominant right coronary artery. Normal intracardiac filling pressure. From my discussion with the patient and his spouse, the jailed diagonal branch is a chronic finding as he recalls receiving plain balloon angioplasty for this in the past. Recommendations: Ongoing medical therapy for coronary heart disease recommended. His baseline heart rate is in the 50s without beta-octavio and therefore I do not feel he would be a candidate for this. Patient concerns of possible headache and dizziness side effect with nitroglycerin patch, and therefore will hold of on this. Pt did not tolerate Ranexa in the past. Discharge on prior medication, ASA 81 mg daily, lisinopril 10 mg daily, Eliquis 5 mg BID (for h/o PAF), and atorvastatin 80 mg daily as wall as SL nitroglyceri n. Admission and Anticipated Discharge Date Admission Date: January 02, 2024 Subjective Patient seen in follow up. Spouse at bedside. He is eager for discharge. Denies chest pain , palpitations, or dizziness. Telemetry reveals sinus bradycardia in the 50s which is his baseline. Physical Exam Constitutional: WD/WN, vitals as above no acute distress Eyes: PERRL, conjunctivae normal, anicteric sclerae ENMT: external ear and nose normal, oropharynx normal Neck: trachea midline, no thyromegaly Respiratory: normal respiratory effort, lungs clear to auscultation Cardiovascular: Rate/Rhythm: regular rate and regular rhythm Heart Sounds: normal S1 and normal S2; no gallop and no murmur Vessels: femoral pulses present and radial pulses present; no JVD Extremities: no edema R Radial cath sight and R femoral cath site clean , dry and intact Gastrointestinal (Abdomen): normal bowel sounds, soft, nontender, no hepatosplenomegaly Musculoskeletal: no cyanosis or clubbing, extremities motor strength 5/5 Results & Data Vital Signs (Past 12 Hours) Vital Signs Temp Pulse Resp BP Pulse Ox O2 Del Method 01/04/24 12:35 36.6 C 55 L 18 121/76 94 Room Air 01/04/24 11:00 61 01/04/24 07:38 36.7 C 57 L 16 151/74 H 96 Room Air (2) Hypertension Hypertension type: unspecified Qualified Code(s): I10 - Essential (primary) hypertension
--- NOTE | 2024-01-04 16:15 | Discharge Summary ---
Date of Service January 04, 2024 Admission HPI Per Admitting Provider Mr. Shetty is a 73-year-old male with a medical history that includes CAD s/p LAD x2 stents 2008 and AF s/p Ablation 2019; presents to the ED today with complaints of chest pain after being seen by his PCP as an outpatient this morning. He did present to the ER last for similar symptoms. He reports that he improved over the weekend but this morning he was continuing to have left arm tingling and substernal chest pain with jaw tingling. At home, he took one SL nitro at 0945, a second one at 1045 today. This past weekend he did take two Nitro SL. Reports since , he took 8-10 SL Nitro. Chest pain appears to be non-exertional. Follows with Dr. Golden of cardiology. He started taking an exercise class one month ago which is one hour of constant motion. No ZARATE with going up a flight of stairs. Has had increased anxiety over the day-to-day things; like planning a trip. He does not eat as much, does not have a lack of appetite. No significant shifts with weight and no diets. He has slowed his caffeine intake; drinks 1-2 cups of decaf coffee daily. Past medical history includes stable CAD status post LAD x 2 stents 2008, A-fib status post ablation 2019, HTN, HLD, Parkinson's disease, BPH, and OA. Uses chewing tobacco and quit smoking cigarettes 20+ years ago. Drinks alcohol occastionally with dinner, no recreational drugs including medical marijuana. No leukocytosis otherwise CHEM panel unremarkable. Troponin negative. EKG without ischemic changes. 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 Patient was given loading dose aspirin in the ED and sublingual nitro that improved patient's symptoms. Per outpatient review he follows with Dr. Jackson [facility] neurology for his Parkinson's disease. Last appointment 12/23/2023 reports worsening difficulty with multitasking and concentration. Rivastigmine was recommended for home trial for snoring and insomnia and concentration issues. 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 Pt denies LAO, dizziness, visual or auditory changes, current chest pain, palpitations, SOB, abdominal pain or tenderness, N/V/D, , dysuria, hematochezia, recent falls or trauma. Patient will be admitted for further evaluation and management of his anginal chest pain. Will obtain echocardiogram, trend Troponin and place formal cards consultation. Admission Exam Per Admitting Provider Neuro: AAOx4, PERRLA, no aphagia, memory changes, CNII-XII grossly intact. NIH zero. HEENT: head normocephalic, moist mucus membranes CV: S1/S2, (-) M/G/R, (-) edema, cap refill < 3 seconds. euvolemic on exam Resp: Lungs CTA in all wright. On RA GI: Abdomen S/NT/ND, Ax4 bowel sounds, (-) CVA tenderness Musculoskeletal: 5/5 B/L UE strength, 5/5 B/L LE strength. No gait disturbance Skin: (-) rashes , (-) erythema. Psych: euthymic mood Principal Diagnosis Stable angina Discharge Exam Neuro: AAOx4, PERRLA, no aphagia, memory changes, CNII-XII grossly intact. NIH zero. HEENT: head normocephalic, moist mucus membranes CV: S1/S2, (-) M/G/R, (-) edema, cap refill < 3 seconds. euvolemic on exam Resp: Lungs CTA in all wright. On RA GI: Abdomen S/NT/ND, Ax4 bowel sounds, (-) CVA tenderness Musculoskeletal: 5/5 B/L UE strength, 5/5 B/L LE strength. No gait disturbance Skin: (-) rashes , (-) erythema. Psych: euthymic mood Discharge Data Allergies Allergy/AdvReac Type Severity Reaction Status Date / Time acetazolamide AdvReac Severe Tachycardia Verified 11/04/22 10:18 amlodipine AdvReac Severe hypotension Verified 11/04/22 10:18 Consultations 01/02/24 13:15 ED Decision to Admit Stat 01/02/24 14:33 Consult Cardiology Routine Procedures Performed Operation Date: 01/03/24 08:00 Actual Procedures p Cath, Left with Cors and Vent - Danie Valdez MD s Cineradiography w/Routine Exam - Danie Valdez MD s Ultrasound Vascular Access - Danie Valdez MD Ordered Studies 01/03/24 06:36 CL Cath Imgs for PACS use only Routine Hospital Course (1) Chest pain: (2) CAD (coronary artery disease): (3) Atrial fibrillation: (4) On anticoagulant therapy: (5) Parkinson's disease: (6) Hypertension: (7) Hyperlipidemia: (8) Osteoarthritis: Plan Mr. Shetty is a 73 y/o male with a medical history that includes CAD s/p LAD x2 stents 2008 and AF s/p Ablation 2019; presents to the ED today with complaints of chest pain after being seen by his PCP as an outpatient this morning. He did present to the ER last for similar symptoms. He reports that he improved over the weekend but this morning he was continuing to have left arm tingling and substernal chest pain with jaw tingling. At home, he took one SL nitro at 0945, a second one at 1045 today. This past weekend he did take two Nitro SL. Reports since , he took 8-10 SL Nitro. Chest pain appears to be non-exertional. Follows with Dr. Golden of cardiology. No leukocytosis otherwise CHEM panel unremarkable. Troponin negative. EKG without ischemic changes. 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 Patient was admitted for further evaluation and management of his anginal chest pain. Stable Angina: Chest pain: Intermittent since last ETHERNET NETWORK ARCHITECT Took 8-10 Nitro since last ETHERNET NETWORK ARCHITECT Admitting troponin x 4 were negative. EKG with no acute ST or T changes. Echo with EF of 65 to 70%, grade 1 diastolic dysfunction, LV wall motion is normal. Currently CP Free Status post heart cath 01/02, multivessel coronary disease. Cardiology on board, patient to follow-up with cardiology upon discharge. Continue prior to arrival home cardiac medications. Patient chest pain-free and is hemodynamically stable and would like to go home. CAD: Chronic Status post PCI LAD x 2 ZIYAD in 2008 Received ASA 324 mg in ED Takes baby aspirin;continue A-fib: On anticoagulation therapy: Chronic Status post ablation in [address] Golden cardiology Takes Eliquis; continue when able. Parkinson's disease: Chronic Follows with neurology Dr. Jackson at [place] Takes Sinemet ER/IR combination;continue Last appointment 12/23/2023 reports worsening difficulty with multitasking and concentration. Rivastigmine was recommended for home trial for snoring and insomnia and concentration issues.; this has not been started yet. 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 HTN: Chronic Takes lisinopril;continue HLD: Chronic Last panel 10/07/2023 TG 43, HDL 61, LDL 72 Repeat fasting lipid panel in a.m. On high-dose atorvastatin;continue Disposition: PCP: Dr. Peterson CODE STATUS: Full code VTE prophylaxis: SCDs Patient being discharged home with following instruction at the point of discharge: Follow-up with your primary care physician within a week time and likely you will need labs CBC/CMP/magnesium/phosphorus. Follow-up with your cardiology in 2 to 4 weeks time of discharge. For concerns of anxiety, as discussed at the bedside you do not want any medications to be started in the hospital. Continue to closely follow-up with your PCP for management of anxiety. Take your medications as prescribed. Please make sure that you are able to get your medications today by calling your pharmacy before you leave the hospital so that your treatment continuity is not broken. Home Health Attestation I certify that this patient is under my care and that I, or a physicians nursing assistants teacher working with me, had a face to-face encounter that meets the home health [id number]-[id number] encounter requirements with this patient. The encounter with the patient was in whole, or in part, for the following medical condition, which is the primary reason for home health care (list medical condition): I certify that, based on my findings, the following services are medically necessary home health services: My clinical findings support the need for the above services because: Further, I certify that my clinical findings support that this patient is homebound (i.e. absences from home require considerable and taxing effort and are for medical reasons or mandaen services or infrequently or of short duration when for other reasons) because: Certification for Home Health Services: Based on the above findings, I certify that this patient is confined to the home and needs intermittent snf care, physical therapy and/or speech therapy or continues to need occupational therapy. The patient is under my care, and I have initiated the establishment of the plan of care. This patient will be followed by a physician who will periodically review the plan of care. Total Time Total Time Spent Total Time Spent (In Minutes): 45 Discharge Plan Discharge Items Patient Disposition: Home - Self-Care Reason For Visit: CHEST PAIN Discharge Diagnosis: Stable angina Activity: Per Instructions section Non-emergency contact: Primary Care Provider Call non-emergency contact if: you have any medication questions Follow-up/Referrals: Dominick Peterson MD [Primary Care Provider] - (Date & Time 01/09/2024 11:00 AM Provider Dominick Peterson MD Department General Internal Medicine [facility] ) Morro Golden DO [Hall Worker] - (Date & Time 01/12/2024 11:30 AM Provider Morro Golden DO Department Cardiology, [facility] ) Diet: Heart Healthy Addtl Attending Provider Instructions: ACTIVITY RECOMMENDATIONS: It is common to feel weak and fatigue for a few days. * Do not drive or operate any motorized equipment for the next three days. * Limit stair usage (2 or 3 trips a day only) for the next three days. * Do not lift anything heavier than 10 pounds for the next three days. * Do not engage in vigorous exercise or any sports for the next five days. * You may shower the day after your procedure, but do not immerse the area for three days. Cleanse the site gently with soap and water. SPECIAL CARE INSTRUCTIONS: * You may replace the pressure dressing or band-aid the morning after the procedure. * After your procedure, it is normal to have a small bruise or small lump at the site. Examine your site daily for any change in the bruise or lump, redness, swelling, drainage or numbness. Notify your doctor if any change. BLEEDING: * If there is a small amount of bleeding at the site, lie down and apply firm pressure with a clean cloth for ten minutes. When the bleeding stops, lie quietly keeping the procedure limb straight for six hours. Notify your doctor as soon as possible. * If the bleeding does not stop after ten minutes or if there is a large amount of bleeding or spurting, call 911 immediately. Continue to lie down and hold firm pressure until help arrives. SKIN IRRITATION: * You may experience some redness and/or swelling in the area where radiation was administered. If any skin irritation occurs, please contact your family physician. FOLLOW UP VISIT: Keep any scheduled doctor appointments. Addtl Strike On Machine Operator Provider Instructions: Follow-up with your primary care physician within a week time and likely you will need labs CBC/CMP/magnesium/phosphorus. Follow-up with your cardiology in 2 to 4 weeks time of discharge. For concerns of anxiety, as discussed at the bedside you do not want any medications to be started in the hospital. Continue to closely follow-up with your PCP for management of anxiety. Take your medications as prescribed. Please make sure that you are able to get your medications today by calling your pharmacy before you leave the hospital so that your treatment continuity is not broken. Pending Studies at Discharge: No Stand-Alone Forms: My [facility] [employer], Smoking Cessation Medications and DC Order Prescriptions: Continued atorvastatin 80 mg tablet 80 mg PO PM Qty: 90 1RF Hold Instructions: Pt. switching to will cardio-requests no more refills gabapentin 100 mg capsule 100 mg PO TID Qty: 90 2RF psyllium husk [Metamucil] 0.4 gram capsule 0.4 g PO QPM Eliquis 5 mg tablet 5 mg PO BID aspirin [Adult Aspirin Regimen] 81 mg tablet,delayed release (DR/EC) 81 mg PO DAILY valacyclovir 1 gram tablet 2,000 mg PO Q12H PRN (Reason: cold sores) Qty: 30 0RF multivitamin Tablet 1 tab PO QAM loratadine 10 mg Tablet 10 mg PO DAILY PRN (Reason: allergies) coenzyme Q10 100 mg Capsule 100 mg PO QAM glucosamine-chondroitin [Osteo Bi-Flex] 250-200 mg Tablet 2 tab PO QAM omega 6-yvm-kca-fish oil [Fish Oil] 1,000 mg (120 mg-180 mg) capsule 2 cap PO QAM lisinopril 10 mg tablet 10 mg PO QAM ibuprofen 400 mg Tablet 400 mg PO Q8H PRN (Reason: Pain) acetaminophen [Tylenol Extra Strength] 500 mg Tablet 1,000 mg PO Q8 PRN (Reason: headache) Qty: 30 0RF carbidopa-levodopa 50-200 mg tablet extended release 1 tab PO QPM melatonin 6 mg PO DAILY carbidopa-levodopa 25-100 mg tablet 1 tab PO TID Changed nitroglycerin 0.4 mg tablet, sublingual 0.4 mg sublingual UD PRN (Reason: Chest Pain) Qty: 30 0RF Rx Instructions: do not exceed 3 doses per episode Discharge Orders: Discharge Order (Routine); Ordered 04/24/24 Ordered By: Pk Yoder Admission Data Admit Date/Time: 01/02/24 13:39 Attending Provider: Pk Yoder Admit Provider: Darrell Soto Primary Care Provider: Dominick Peetrson Other Providers: Darrell Soto; Fortunato Malave
== END 2024-01-04 17:20 | disposition home or self-care (01) | DRG 287 ==
LOC: ED 12:10 → 2S 13:39 → SUATTDRO 13:39 → 2S 15:14

== ENCOUNTER 2024-01-23 16:18 | Inpatient (IN) ==
[2024-01-23 17:05] LABS: Basophils # (auto) 0.02 K/uL (0.00-0.20); Basophils % (auto) 0.4 %; Eosinophils # (auto) 0.12 K/uL (0.00-0.50); Eosinophils % (auto) 2.3 %; Hematocrit (blood only) 40.6 % (42.0-52.0); Hemoglobin 13.4 g/dl (14.0-18.0); Immature Granulocytes # (auto) 0.02 K/uL (0.01-0.20); Immature Granulocytes % (auto) 0.4 %; Lymphocytes # (auto) 1.37 K/uL (1.20-3.40); Mean Corpuscular Hemoglobin 29.8 pg (25.0-34.0); Mean Corpuscular Volume 90.4 fL (80.0-100.0); Mean Platelet Volume 9.4 fL (9.4-12.4); Monocytes # (auto) 0.57 K/uL (0.11-0.59); Monocytes % (auto) 10.8 %; Neutrophils # (auto) 3.16 K/uL (1.40-6.50); Neutrophils % (auto) 60.1 %; Platelet Count 298 K/uL (130-400); RDW Standard Deviation 39.8 fL (36.4-46.3); Red Blood Count 4.49 M/uL (4.70-6.10); White Blood Count 5.26 K/ul (4.8-10.8)
--- NOTE | 2024-01-23 17:07 | XRay Report ---
XR chest 1V not portable HISTORY: 73 years-old Male Chest pain, nonspecific COMPARISON: 01/01/2014 TECHNIQUE: AP view of the chest FINDINGS: Calcified pleural plaques redemonstrated. Cardiomegaly with coronary arterial stenting. No pneumothor ax, pleural effusion or airspace consolidation. Bones appear grossly intact. IMPRESSION: 1. No acute process. 2. 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 ACT 112: Negative or not required by law. The above report was generated using voice recognition software. It may contain grammatical, syntax o r spelling errors. Electronically signed by: Duke Hallman M.D. 01/23/2024 5:06 PM
--- NOTE | 2024-01-23 17:22 | Emergency Department Note ---
Impression & Plan Chest pain ED Provider Note HISTORY OF PRESENT ILLNESS: Patient is a 73-year-old male presenting with chest pain. Patient reports that earlier this afternoon he developed substernal sharp chest pain that radiated into his upper back. Reports that the pain lasted for about 20 minutes. He has never had pain like this before. He does have a history of cardiac stents. He is on Eliquis. Denies any DVT or PE history. Reports the pain also seem to radiate into his jaw. He denies any headache, changes in vision, or abdominal pain with the chest pain. He denies any nausea or vomiting. He took 4 nitro prior to arrival with little relief in symptoms. On my assessment any examination room, the patient reports his chest pain has resolved. ROS: as above PHYSICAL EXAM: Constitutional: Patient appears in no acute distress. HENT: Head: Normocephalic and atraumatic. Eyes: EOMI, PERRL Mouth/Throat: Mucous membranes moist. Neck: Trachea midline. Neck supple. Cardiovascular: RRR, No murmurs, rubs or gallops. Intact distal pulses. Pulmonary/Chest: No respiratory distress. Breath sounds clear and equal bilaterally. No wheezes or rales. Abdominal: Abdomen soft, no tenderness, rebound or guarding. Musculoskeletal: No edema, tenderness or deformity noted. Skin: Warm and dry. No rash, erythema, pallor or cyanosis Psychiatric: Appropriate mood and affect for situation. Neurological: Alert and keenly responsive. CN II-XII grossly intact, moving all extremities equally and fully. MDM: - Vitals signs stable. - History obtained via patient. History as above. - Chronic conditions affecting care: CAD (s/p PCI); Afib; HTN; HLD - Differential diagnoses include, but are not limited to: Acute coronary syndrome; pulmonary embolism; dissection; tension pneumothorax; esophageal rupture; pneumonia - Order placed for continuous cardiac monitoring. At this time, monitor showed rate of 56 bpm with normal sinus rhythm, per my interpretation. - External medical records reviewed. Cardiac catheterization note dated 01/03/2024 was reviewed. Patient had a cath for his anginal symptoms. He was found to have severe CAD but no stents were placed - EKG interpreted by myself showed normal sinus rhythm. Rate 78 bpm. QT 362. No acute ischemic changes. - Laboratory workup interpreted by myself showed normal WBC; stable electrolytes; normal PT/INR; normal troponin - CXR negative for pneumonia, per my interpretation - CTA chest negative for dissection - Discussed results with patient. He had another episodes of chest pain in the emergency department. A repeat EKG showed normal sinus rhythm. Rate bradycardic at 53 bpm. QT 424. No acute ischemic changes. Repeat troponin within normal limits - Patient is moderate-risk HEART score. - Discussion was had with case assistant about patient's case and need for admission - Hospitalist consulted for admission - [facility] 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 central nervous system Dysphonia NPH (normal pressure hydrocephalus) Cognitive impairment Superficial siderosis present on magnetic resonance imaging Chronic anemia Parkinson disease Nephrolithiasis Atrial fibrillation (Chronic) on eliquis Hyperlipidemia (Chronic) Hypertension (Chronic) On anticoagulant therapy (Chronic) Osteoarthritis (Chronic) Medical History Headache Parkinson's disease NEW DX 09/03/21 Hx of esophageal reflux Migraines History of atrial fibrillation CARDIAC ABLATION 2019 Seasonal allergies Osteoarthritis On anticoagulant therapy Myocardial infarction 2008 Hypertension Hyperlipidemia Surgical History History of cardiac cath 2014-no stents-- follows with Dr. Valdez H/O cardiac radiofrequency ablation 2019 [place] teeth removed History of cataract surgery RT/LEFT Hx of heart artery stent 2008 x 2 (DONE AT [place], [place]) FOLLOWED BY DR. HARTLEY Hx of vitrectomy RT History of tonsillectomy and adenoidectomy Hx of colonoscopy Hx of esophagogastroduodenoscopy Hx of arthroscopy of right knee Hx of arthroscopy of left knee History of brain shunt 2009--posterior benign cyst removal, "a piece of tubing sits at site to keep cyst from regrowing" @ [facility] Family History Father Coronary heart disease Heart disease Peripheral arterial disease Hypertension Mother Allergies Hypertension Cardiomyopathy Brother History of kidney cancer Cancer Grandfather Stroke Uncle Myocardial infarction Other No family history of adverse response to anesthesia Denies family history of Ovarian cancer Prostate cancer Diabetes Breast cancer Lung cancer Colorectal cancer Asthma Social History Smoking Status: Never smoker Tobacco Type: Smokeless Tobacco (Dip or Chew) packs per day: 0.5; Second Hand Exposure: No; Do You Dip or Chew Tobacco: Yes; Hx Alcohol Use: Yes Alcohol type: wine Alcohol Intake Frequency: 4 or More x per/Week Alcohol Intake Frequency Comment: 1-3 drinks 5 days a week Hx Substance Use: No Preferred Language: Scottish Communication Ability: Effective Visual Impairment: Limited Hearing Ability: Use of Hearing Aid Geotechnicial Properties Technician Required: No Beliefs That Will Affect Care: None marital status: Current Living Situation: Spouse Current Living Situation Comment: with current occupational status: retired 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 How many Children do You have: 2 Feels Safe at Home: Yes Childhood Exposure to Second-Hand Smoke: Yes caffeine: Yes Dental Care, Regularly: Yes Physical Activity Frequency: Daily Seatbelt Use: always Sunscreen Use: Yes Assistive Devices: Cane Allergies Allergies Allergy/AdvReac Type Severity Reaction Status Date / Time acetazolamide AdvReac Severe Tachycardia Verified 11/04/22 10:18 amlodipine AdvReac Severe hypotension Verified 11/04/22 10:18 Home Meds Home Medications Medication Instructions Recorded Confirmed glucosamine-chondroitin 250 mg-200 2 tab PO QAM 08/10/18 01/23/24 mg tablet (Osteo Bi-Flex) multivitamin 1 tab PO QAM 08/10/18 01/23/24 omega 2-lqd-bnh-fish oil 1,000 mg 2 cap PO QAM 01/29/20 01/23/24 (120 mg-180 mg) capsule (Fish Oil) psyllium husk 0.4 gram capsule 0.4 g PO QPM 08/26/20 01/23/24 (Metamucil) lisinopril 10 mg tablet 10 mg PO QAM 11/18/21 01/23/24 ibuprofen 400 mg tablet 400 mg PO Q8H PRN Pain 03/29/22 01/23/24 apixaban 5 mg tablet (Eliquis) 5 mg PO BID 06/03/22 01/23/24 aspirin 81 mg tablet,delayed 81 mg PO DAILY 06/03/22 01/23/24 release (Adult Aspirin Regimen) carbidopa 25 mg-levodopa 100 mg 1 tab PO TID 01/02/24 01/23/24 tablet carbidopa ER 50 mg-levodopa 200 mg 1 tab PO QPM 01/02/24 01/23/24 tablet,extended release melatonin 6 mg PO DAILY 01/02/24 01/23/24 buspirone 5 mg tablet 5 mg PO BID 01/23/24 01/23/24 sertraline 50 mg tablet 25 mg PO DAILY 01/23/24 01/23/24 Previous Rx's Medication Instructions Recorded atorvastatin 80 mg tablet 80 mg PO PM #90 tabs 02/13/20 acetaminophen 500 mg tablet 1,000 mg (2 x 500 mg) PO Q8 PRN 03/31/22 (Tylenol Extra Strength) headache #30 tabs valacyclovir 1 gram tablet 2,000 mg (2 x 1 gram) PO Q12H PRN 06/03/22 cold sores #30 tabs nitroglycerin 0.4 mg sublingual 0.4 mg sublingual UD PRN Chest 01/04/24 tablet Pain #30 tabs Results & Data (ED) Vital Signs Vital Signs - 24 hr 01/23/24 16:19 01/23/24 16:38 01/23/24 16:50 Temperature 36.5 C Temperature Source Temporal Artery Scan Pulse Rate 92 H 74 Pulse Rate [Left Finger] 68 Pulse Rate from SpO2 Sensor Pulse Rhythm [Left Finger] Regular Pulse Strength [Left Finger] Normal Respiratory Rate 19 18 Respiratory Effort / Characteristics Non-Labored Spontaneous Non-Labored Spontaneous Respiratory Depth Normal Normal Respiratory Pattern Regular Regular Blood Pressure 100/68 Blood Pressure [Right Arm] 106/57 L Blood Pressure Mean 78 Blood Pressure Mean [Right Arm] 73 Blood Pressure Position [Right Arm] Sitting Pulse Oximetry 94 94 Oxygen Delivery Method Room Air Room Air Sepsis Recent Fever Within 48 Hours No Sepsis New/Unexplained Change in Mental Status N/A Sepsis Action Taken by Nursing No Action Required 01/23/24 19:00 01/23/24 19:10 01/23/24 19:20 Temperature Temperature Source Pulse Rate 54 L 53 L 55 L Pulse Rate [Left Finger] Pulse Rate from SpO2 Sensor 55 L Pulse Rhythm [Left Finger] Pulse Strength [Left Finger] Respiratory Rate 18 17 17 Respiratory Effort / Characteristics Respiratory Depth Respiratory Pattern Blood Pressure Blood Pressure [Right Arm] Blood Pressure Mean Blood Pressure Mean [Right Arm] Blood Pressure Position [Right Arm] Pulse Oximetry 97 Oxygen Delivery Method Sepsis Recent Fever Within 48 Hours Sepsis New/Unexplained Change in Mental Status Sepsis Action Taken by Nursing 01/23/24 19:30 01/23/24 19:40 01/23/24 19:50 Temperature Temperature Source Pulse Rate 53 L 51 L 59 L Pulse Rate [Left Finger] Pulse Rate from SpO2 Sensor 53 L 51 L 59 L Pulse Rhythm [Left Finger] Pulse Strength [Left Finger] Respiratory Rate 17 17 19 Respiratory Effort / Characteristics Respiratory Depth Respiratory Pattern Blood Pressure Blood Pressure [Right Arm] Blood Pressure Mean Blood Pressure Mean [Right Arm] Blood Pressure Position [Right Arm] Pulse Oximetry 98 98 97 Oxygen Delivery Method Sepsis Recent Fever Within 48 Hours Sepsis New/Unexplained Change in Mental Status Sepsis Action Taken by Nursing 01/23/24 20:00 01/23/24 20:10 01/23/24 20:20 Temperature Temperature Source Pulse Rate 53 L 52 L 52 L Pulse Rate [Left Finger] Pulse Rate from SpO2 Sensor 53 L 52 L 52 L Pulse Rhythm [Left Finger] Pulse Strength [Left Finger] Respiratory Rate 20 15 16 Respiratory Effort / Characteristics Respiratory Depth Respiratory Pattern Blood Pressure Blood Pressure [Right Arm] Blood Pressure Mean Blood Pressure Mean [Right Arm] Blood Pressure Position [Right Arm] Pulse Oximetry 98 96 97 Oxygen Delivery Method Sepsis Recent Fever Within 48 Hours Sepsis New/Unexplained Change in Mental Status Sepsis Action Taken by Nursing 01/23/24 20:27 01/23/24 20:30 01/23/24 20:33 Temperature Temperature Source Pulse Rate 53 L 53 L Pulse Rate [Left Finger] Pulse Rate from SpO2 Sensor 53 L Pulse Rhythm [Left Finger] Pulse Strength [Left Finger] Respiratory Rate 20 Respiratory Effort / Characteristics Respiratory Depth Respiratory Pattern Blood Pressure Blood Pressure [Right Arm] 134/79 Blood Pressure Mean Blood Pressure Mean [Right Arm] 97 Blood Pressure Position [Right Arm] Pulse Oximetry 97 Oxygen Delivery Method Sepsis Recent Fever Within 48 Hours Sepsis New/Unexplained Change in Mental Status Sepsis Action Taken by Nursing Laboratory Data 01/23/24 16:31 01/23/24 16:31 Lab Results 01/23/24 01/23/24 Range/Units 16:31 19:31 WBC 5.26 (4.8-10.8) K/ul RBC 4.49 L (4.70-6.10) M/uL Hgb 13.4 L (14.0-18.0) g/dl Hct 40.6 L (42.0-52.0) % MCV 90.4 (80.0-100.0) fL MCH 29.8 (25.0-34.0) pg MCHC 33.0 (32.0-36.0) g/dL RDW Std Deviation 39.8 (36.4-46.3) fL RDW Coeff of Marissa 12.0 (11.5-14.5) % Plt Count 298 (130-400) K/uL MPV 9.4 (9.4-12.4) fL Immature Gran % (Auto) 0.4 % Neut % (Auto) 60.1 % Lymph % (Auto) 26.0 % [place] % (Auto) 10.8 % Eos % (Auto) 2.3 % Baso % (Auto) 0.4 % Neut # (Auto) 3.16 (1.40-6.50) K/uL Lymph # (Auto) 1.37 (1.20-3.40) K/uL [place] # (Auto) 0.57 (0.11-0.59) K/uL Eos # (Auto) 0.12 (0.00-0.50) K/uL Baso # (Auto) 0.02 (0.00-0.20) K/uL Immature Gran # (Auto) 0.02 (0.01-0.20) K/uL PT 11.1 (9.0-12.0) Seconds INR 1.0 (0.9-1.1) APTT 25 (21-31) Seconds PTT Ratio 0.9 Sodium 140 (136-145) mmol/L Potassium 4.2 (3.5-5.1) mmol/L Chloride 106 (98-107) mmol/L Carbon Dioxide 30 (21-32) mmol/L Anion Gap 4 (3-11) BUN 23 (6-23) mg/dl Creatinine 0.99 (0.6-1.4) mg/dl Est Cr Clr Drug Dosing 75.1 ml/min Est GFR ( Amer) 88.4 ml/min Est GFR (Non-Af Amer) 76.3 ml/min BUN/Creatinine Ratio 23.2 H (10-20) Glucose 88 (70-99(Fasting)) mg/dl Calcium 9.3 (8.6-10.3) mg/dl Total Bilirubin 0.4 (0.2-1.0) mg/dl AST 17 (13-39) U/L ALT 5 L (7-52) U/L Alkaline Phosphatase 41 (34-104) U/L Troponin I High Sens 6.8 7.3 (0-20) pg/ml Total Protein 6.5 (6.0-8.3) gm/dl Albumin 4.1 (3.4-5.0) gm/dl Globulin 2.4 L (2.5-4.0) gm/dl Albumin/Globulin Ratio 1.7 (0.9-2) Administered Medications Discontinued Medications Ioversol (Optiray 320 125ml) 118 ml IV ONCE ONE Stop: 01/23/24 18:29 Last Admin: 01/23/24 18:29 Dose: 118 ml Documented By: RUBY Imaging Data Radiologist's Impression: Chest X-Ray 01/23/24 16:21 XR chest 1V not portable HISTORY: 73 years-old Male Chest pain, nonspecific COMPARISON: 01/01/2014 TECHNIQUE: AP view of the chest FINDINGS: Calcified pleural plaques redemonstrated. Cardiomegaly with coronary arterial stenting. No pneumothorax, pleural effusion or airspace consolidation. Bones appear grossly intact. IMPRESSION: 1. No acute process. 2. 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 ACT 112: Negative or not required by law. The above report was generated using voice recognition software. It may contain grammatical, syntax or spelling errors. Electronically signed by: Duke Hallman M.D. 01/23/2024 5:06 PM Chest CTA 01/23/24 17:20 CT angio chest dissec wo/w con CT DOSE: 955.87 mGy.cm HISTORY: 73 years-old Male with chest pain radiating into back. Acute chest pain TECHNIQUE: Multiple CTA images of the chest were obtained with and without the intravenous administration of 118 ml Optiray. Coronal and sagittal MIPS were obtained from the axial data set and were submitted for review. All measurements were obtained according to NASCET criteria. A dose lowering technique was utilized adhering to the principles of ALARA. COMPARISON: Chest radiograph of same day, chest CT 09/24/2022 FINDINGS: CTA: Mild cardiomegaly. Extensive coronary artery calcifications. No pericardial effusion. Unremarkable thoracic aorta without aneurysm or dissection. There is mild thoracic aortic atherosclerosis. No intramural or mediastinal hematoma on the noncontrast study. No pulmonary emboli identified. CT CHEST: Subcentimeter hypodense inferior left thyroid nodule. No lymphadenopathy. Pectus excavatum. Calcified pleural plaques redemonstrated bilaterally. There is no pneumothorax, pleural effusion, airspace consolidation or pulmonary edema. No suspicious pulmonary nodules or masses. Central airways are patent. No acute upper abdominal abnormality. The soft tissues are within normal limits. No acute fracture identified. IMPRESSION: 1. Unremarkable CTA of the chest. No thoracic aortic aneurysm or dissection. 2. No pleural effusion or airspace consolidation. 3. 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 ACT 112: Negative or not required by law. The above report was generated using voice recognition software. It may contain grammatical, syntax or spelling errors. Electronically signed by: Duke Hallman M.D. 01/23/2024 6:59 PM Discharge Plan Visit Data Chief Complaint: Chest Pain Stated Complaint: CHEST/BACK PAIN ED Provider: Aurora Perez Discharge Problem: Chest pain Forms Stand Alone Forms: [facility] [employer] Prescriptions Prescriptions: No Action atorvastatin 80 mg tablet 80 mg PO PM Qty: 90 1RF Hold Instructions: Pt. switching to will cardio-requests no more refills psyllium husk [Metamucil] 0.4 gram capsule 0.4 g PO QPM Eliquis 5 mg tablet 5 mg PO BID aspirin [Adult Aspirin Regimen] 81 mg tablet,delayed release (DR/EC) 81 mg PO DAILY valacyclovir 1 gram tablet 2,000 mg PO Q12H PRN (Reason: cold sores) Qty: 30 0RF multivitamin Tablet 1 tab PO QAM glucosamine-chondroitin [Osteo Bi-Flex] 250-200 mg Tablet 2 tab PO QAM omega 7-wqw-zdk-fish oil [Fish Oil] 1,000 mg (120 mg-180 mg) capsule 2 cap PO QAM lisinopril 10 mg tablet 10 mg PO QAM ibuprofen 400 mg Tablet 400 mg PO Q8H PRN (Reason: Pain) acetaminophen [Tylenol Extra Strength] 500 mg Tablet 1,000 mg PO Q8 PRN (Reason: headache) Qty: 30 0RF carbidopa-levodopa 50-200 mg tablet extended release 1 tab PO QPM melatonin 6 mg PO DAILY carbidopa-levodopa 25-100 mg tablet 1 tab PO TID nitroglycerin 0.4 mg tablet, sublingual 0.4 mg sublingual UD PRN (Reason: Chest Pain) Qty: 30 0RF Rx Instructions: do not exceed 3 doses per episode buspirone 5 mg tablet 5 mg PO BID sertraline 50 mg tablet 25 mg PO DAILY Referrals Referrals: Dominick Peterson MD [Primary Care Provider] -
[2024-01-23 17:26] LABS: Albumin Globulin Ratio 1.7 (0.9-2); Albumin Level 4.1 gm/dl (3.4-5.0); BUN Creatinine Ratio 23.2 (10-20); Bilirubin,Total 0.4 mg/dl (0.2-1.0); Calcium 9.3 mg/dl (8.6-10.3); Creatinine Clr Calc Pharmacy 75.1 ml/min; Est GFR (African American) 88.4 ml/min; Est GFR (Non-African American) 76.3 ml/min; Globulin 2.4 gm/dl (2.5-4.0); Potassium 4.2 mmol/L (3.5-5.1); Total Protein 6.5 gm/dl (6.0-8.3)
[2024-01-23 17:32] LABS: Troponin I High Sensitivity 6.8 pg/ml (0-20)
[2024-01-23 17:41] LABS: Partial Thromboplastin Ratio 0.9; Partial Thromboplastin Time 25 Seconds (21-31); Prothrombin Time 11.1 Seconds (9.0-12.0)
[2024-01-23] MEDS: OPTIRAY 320 125ml IV ONE (18:29)
--- NOTE | 2024-01-23 19:01 | CT Scan Report ---
CT angio chest dissec wo/w con CT DOSE: 955.87 mGy.cm HISTORY: 73 years-old Male with chest pain radiating into back. Acute chest pain TECHNIQUE: Multiple CTA images of the chest were obtained with and without the intravenous administra tion of 118 ml Optiray. Coronal and sagittal MIPS were obtained from the axial data set and were sub mitted for review. All measurements were obtained according to NASCET criteria. A dose lowering tech nique was utilized adhering to the principles of ALARA. COMPARISON: Chest radiograph of same day, chest CT 09/24/2022 FINDINGS: CTA: Mild cardiomegaly. Extensive coronary artery calcifications. No pericardial effusion. Unremarkable th oracic aorta without aneurysm or dissection. There is mild thoracic aortic atherosclerosis. No intram ural or mediastinal hematoma on the noncontrast study. No pulmonary emboli identified. CT CHEST: Subcentimeter hypodense inferior left thyroid nodule. No lymphadenopathy. Pectus excavatum. Calcified pleural plaques redemonstrated bilaterally. There is no pneumothorax, pleural effusion, airspace con solidation or pulmonary edema. No suspicious pulmonary nodules or masses. Central airways are patent. No acute upper abdominal abnormality. The soft tissues are within normal limits. No acute fracture id entified. IMPRESSION: 1. Unremarkable CTA of the chest. No thoracic aortic aneurysm or dissection. 2. No pleural effusion or airspace consolidation. 3. 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 ACT 112: Negative or not required by law. The above report was generated using voice recognition software. It may contain grammatical, syntax o r spelling errors. Electronically signed by: Duke Hallman M.D. 01/23/2024 6:59 PM
[2024-01-23] MEDS ORDERED: MELATONIN 3 MG TAB PO PRN (23:30)
[2024-01-24] MEDS: ATORVASTATIN 40 MG TAB PO STA (00:01)
[2024-01-24] MEDS: CARBIDOPA/LEVODOPA 50/200MG EXT REL TAB PO STA (00:01)
[2024-01-24] MEDS: busPIRone 5 MG TAB PO STA (00:01)
[2024-01-24] MEDS: APIXABAN 5 MG TABLET PO STA (00:01)
--- NOTE | 2024-01-24 01:18 | History & Physical Report ---
Date of Service January 24, 2024 Assessment & Plan (1) Chest pain: Plan: 73-year-old male with past medical history significant for CAD s/p stents, hypertension, paroxysmal atrial fibrillation, PVCs, hyperlipidemia, Parkinson disease, comes because of chest pain radiating to his back. Patient has angina. He took 4 nitros at home but the pain did not subside so decided come to ER. In the ER CTA chest was done which is unremarkable. 2 sets of troponin were neg ative. ER tried to discharge but the patient had another episode of chest pain so we are called for admission. Currently patient is chest pain-free. No shortness of breath. Earlier had a headache but that resolved. Vision is okay. No runny nose or sore throat. No cough. No fevers. Appetite is okay. No nausea. No abdominal pain. Normal bowel and bladder movements. Ambulates okay at home. is in the room. Patient was admitted in December 2023 with chest pain and at time he had cardiac cath which showed multivessel coronary disease and cardiology recommended medical management at that time. Chest pain Was radiating back to the shoulders blades 2 sets of troponin negative CTA chest unremarkable In December 2023 had cardiac cath which showed multiple vessel disease and medical management recommended and if symptoms are refractory " PCI of RCA, +/- FFR of OM 3 could be considered" Per cardiology. Will keep him n.p.o. Serial cardiac enzymes Consult cardiology in a.m. 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 Needs follow-up DVT prophylaxis SCDs Disposition Telemetry Full code History of Present Illness Chief Complaint: Chest pain Primary Care Provider: Dominick Peterson MD 73-year-old male with past medical history significant for CAD s/p stents, hypertension, paroxysmal atrial fibrillation, PVCs, hyperlipidemia, Parkinson disease, comes because of chest pain radiating to his back. Patient has angina. He took 4 nitros at home but the pain did not subside so decided come to ER. In the ER CTA chest was done which is unremarkable. 2 sets of troponin were negative. ER tried to discharge but the patient had another episode of chest pain so we are called for admission. Currently patient is chest pain-free. No shortness of breath. Earlier had a headache but that resolved. Vision is okay. No runny nose or sore throat. No cough. No fevers. Appetite is okay. No nausea. No abdominal pain. Normal bowel and bladder movements. Ambulates okay at home. is in the room. Patient was admitted in December 2023 with chest pain and at time he had cardiac cath which showed multivessel coronary disease and cardiology recommended medical management at that time. Past medical history. As mentioned above. Past surgical history. Atrial fibrillation ablation. Cardiac cath Social history. . Former smoker. Alcohol several times a week. No drug use. Family history. No family history on file Allergies Allergy/AdvReac Type Severity Reaction Status Date / Time acetazolamide AdvReac Severe Tachycardia Verified 11/04/22 10:18 amlodipine AdvReac Severe hypotension Verified 11/04/22 10:18 Home Medications Medication Instructions Recorded Confirmed Type glucosamine-chondroitin 250 mg-200 2 tab PO QAM 08/10/18 01/23/24 History mg tablet (Osteo Bi-Flex) multivitamin 1 tab PO QAM 08/10/18 01/23/24 History omega 4-daw-axj-fish oil 1,000 mg 2 cap PO QAM 01/29/20 01/23/24 History (120 mg-180 mg) capsule (Fish Oil) atorvastatin 80 mg tablet 80 mg PO PM #90 tabs 02/13/20 01/23/24 Rx psyllium husk 0.4 gram capsule 0.4 g PO QPM 08/26/20 01/23/24 History (Metamucil) lisinopril 10 mg tablet 10 mg PO QAM 11/18/21 01/23/24 History ibuprofen 400 mg tablet 400 mg PO Q8H PRN Pain 03/29/22 01/23/24 History acetaminophen 500 mg tablet 1,000 mg (2 x 500 mg) PO Q8 PRN 03/31/22 01/23/24 Rx (Tylenol Extra Strength) headache #30 tabs apixaban 5 mg tablet (Eliquis) 5 mg PO BID 06/03/22 01/23/24 History aspirin 81 mg tablet,delayed 81 mg PO DAILY 06/03/22 01/23/24 History release (Adult Aspirin Regimen) valacyclovir 1 gram tablet 2,000 mg (2 x 1 gram) PO Q12H PRN 06/03/22 01/23/24 Rx cold sores #30 tabs carbidopa 25 mg-levodopa 100 mg 1 tab PO TID 01/02/24 01/23/24 History tablet carbidopa ER 50 mg-levodopa 200 mg 1 tab PO QPM 01/02/24 01/23/24 History tablet,extended release melatonin 6 mg PO DAILY 01/02/24 01/23/24 History nitroglycerin 0.4 mg sublingual 0.4 mg sublingual UD PRN Chest 01/04/24 01/23/24 Rx tablet Pain #30 tabs buspirone 5 mg tablet 5 mg PO BID 01/23/24 01/23/24 History sertraline 50 mg tablet 25 mg PO DAILY 01/23/24 01/23/24 History Past Med/Surg History Problem List (Updated 01/24/24 @ 07:30 by MARTHA Elliott) Paroxysmal atrial fibrillation Chest pain (Acute) Blood glucose elevated (Acute) Chest pain (Acute) Anginal chest pain at rest Parkinson's disease NEW DX 09/03/21 Lower urinary tract symptoms (LUTS) Cognitive decline History of colon polyps Encounter for pre-operative examination CAD (coronary artery disease) (Chronic) Stented coronary artery (Chronic) Anemia Low TSH level Colon polyps 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 of central nervous system Dysphonia NPH (normal pressure hydrocephalus) Cognitive impairment Superficial siderosis present on magnetic resonance imaging Chronic anemia Parkinson disease Nephrolithiasis Atrial fibrillation (Chronic) on eliquis Hyperlipidemia (Chronic) Hypertension (Chronic) On anticoagulant therapy (Chronic) Osteoarthritis (Chronic) Medical History Headache Parkinson's disease NEW DX 09/03/21 Hx of esophageal reflux Migraines History of atrial fibrillation CARDIAC ABLATION 2019 Seasonal allergies Osteoarthritis On anticoagulant therapy Myocardial infarction 2009 Hypertension Hyperlipidemia Surgical History History of cardiac cath 2014-no stents-- follows with Dr. Valdez H/O cardiac radiofrequency ablation 2019 [place] teeth removed History of cataract surgery RT/LEFT Hx of heart artery stent 2009 x 2 (DONE AT [facility]) FOLLOWED BY DR. HARTLEY Hx of vitrectomy RT History of tonsillectomy and adenoidectomy Hx of colonoscopy Hx of esophagogastroduodenoscopy Hx of arthroscopy of right knee Hx of arthroscopy of left knee History of brain shunt 2010--posterior benign cyst removal, "a piece of tubing sits at site to keep cyst from regrowing" @ [facility] Family History Father Coronary heart disease Heart disease Peripheral arterial disease Hypertension Mother Allergies Hypertension Cardiomyopathy Brother History of kidney cancer Cancer Grandfather Stroke Uncle Myocardial infarction Other No family history of adverse response to anesthesia Denies family history of Ovarian cancer Prostate cancer Diabetes Breast cancer Lung cancer Colorectal cancer Asthma Social History Smoking Status: Former smoker Tobacco Type: Smokeless Tobacco (Dip or Chew) packs per day: 0.5; Second Hand Exposure: No; Do You Dip or Chew Tobacco: Yes; Tobacco Cessation Education Requested by Patient: No Hx Alcohol Use: Yes Alcohol type: wine Alcohol Intake Frequency: 4 or More x per/Week Alcohol Intake Frequency Comment: 1-3 drinks 5 days a week Hx Substance Use: No Preferred Language: Macedonian Communication Ability: Effective Visual Impairment: Limited Hearing Ability: Use of Hearing Aid Arch Cushion Skiving Machine Operator Required: No Beliefs That Will Affect Care: None marital status: Current Living Situation: Spouse Current Living Situation Comment: with current occupational status: retired 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 ENT- oropharynx clear Neck- supple, no JVD. Lungs- clear to auscultation, no wheezing or crackles. Heart- regular rhythm; no murmur, no gallop. Abdomen- normal bowel sounds, soft, nontender, no distension. Extremities- no pretibial edema, no erythema seen Neuro- alert, oriented PERRL, EOMI; no facial palsy; no dysarthria; moves extremities. Results & Data Results & Data Vital Signs (Past 12 Hours) Vital Signs Temp Pulse Pulse Resp BP BP Pulse Ox 01/24/24 00:42 01/24/24 00:26 57 L 01/23/24 22:21 01/23/24 22:10 51 L 16 96 01/23/24 22:00 49 L 20 95 01/23/24 22:00 153/87 H 01/23/24 21:50 53 L 14 97 01/23/24 21:40 53 L 13 96 01/23/24 21:30 154/86 H 01/23/24 21:30 50 L 16 96 01/23/24 21:20 51 L 16 96 01/23/24 21:10 51 L 15 97 01/23/24 21:00 52 L 15 96 01/23/24 21:00 144/84 H 01/23/24 20:50 55 L 17 97 01/23/24 20:40 52 L 15 97 01/23/24 20:33 134/79 01/23/24 20:32 134/79 01/23/24 20:32 57 L 16 98 01/23/24 20:30 53 L 20 97 01/23/24 20:27 53 L 01/23/24 20:20 52 L 16 97 01/23/24 20:10 52 L 15 96 01/23/24 20:00 53 L 20 98 01/23/24 19:50 59 L 19 97 01/23/24 19:40 51 L 17 98 01/23/24 19:30 53 L 17 98 01/23/24 19:20 55 L 17 97 01/23/24 19:10 53 L 17 01/23/24 19:00 54 L 18 01/23/24 16:50 68 18 106/57 L 94 01/23/24 16:38 74 01/23/24 16:19 36.5 C 92 H 19 100/68 94 O2 Del Method O2 Flow Rate 01/24/24 00:42 Room Air 01/24/24 00:26 01/23/24 22:21 Room Air 96 01/23/24 22:10 01/23/24 22:00 01/23/24 22:00 01/23/24 21:50 01/23/24 21:40 01/23/24 21:30 01/23/24 21:30 01/23/24 21:20 01/23/24 21:10 01/23/24 21:00 01/23/24 21:00 01/23/24 20:50 01/23/24 20:40 01/23/24 20:33 01/23/24 20:32 01/23/24 20:32 01/23/24 20:30 01/23/24 20:27 01/23/24 20:20 01/23/24 20:10 01/23/24 20:00 01/23/24 19:50 01/23/24 19:40 01/23/24 19:30 01/23/24 19:20 01/23/24 19:10 01/23/24 19:00 01/23/24 16:50 Room Air 01/23/24 16:38 01/23/24 16:19 Room Air Diagnostic Findings Laboratory Results WBC 5.26 K/ul (4.8-10.8) 01/23/24 16:31 RBC 4.49 M/uL (4.70-6.10) L 01/23/24 16:31 Hgb 13.4 g/dl (14.0-18.0) L 01/23/24 16:31 Hct 40.6 % (42.0-52.0) L 01/23/24 16:31 MCV 90.4 fL (80.0-100.0) 01/23/24 16:31 MCH 29.8 pg (25.0-34.0) 01/23/24 16:31 MCHC 33.0 g/dL (32.0-36.0) 01/23/24 16:31 RDW Std Deviation 39.8 fL (36.4-46.3) 01/23/24 16:31 RDW Coeff of Marissa 12.0 % (11.5-14.5) 01/23/24 16:31 Plt Count 298 K/uL (130-400) 01/23/24 16:31 MPV 9.4 fL (9.4-12.4) 01/23/24 16:31 Immature Gran % (Auto) 0.4 % 01/23/24 16: Neut % (Auto) 60.1 % 01/23/24 16: Lymph % (Auto) 26.0 % 01/23/24 16:31 [place] % (Auto) 10.8 % 01/23/24 16:31 Eos % (Auto) 2.3 % 01/23/24 16: Baso % (Auto) 0.4 % 01/23/24 16: Neut # (Auto) 3.16 K/uL (1.40-6.50) 01/23/24 16: Lymph # (Auto) 1.37 K/uL (1.20-3.40) 01/23/24 16: [place] # (Auto) 0.57 K/uL (0.11-0.59) 01/23/24 16: Eos # (Auto) 0.12 K/uL (0.00-0.50) 01/23/24 16: Baso # (Auto) 0.02 K/uL (0.00-0.20) 01/23/24 16: Immature Gran # (Auto) 0.02 K/uL (0.01-0.20) 01/23/24 16:31 PT 11.1 Seconds (9.0-12.0) 01/23/24 16:31 INR 1.0 (0.9-1.1) 01/23/24 16:31 APTT 25 Seconds (21-31) 01/23/24 16:31 PTT Ratio 0.9 01/23/24 16:31 Sodium 140 mmol/L (136-145) 01/23/24 16:31 Potassium 4.2 mmol/L (3.5-5.1) 01/23/24 16:31 Chloride 106 mmol/L (98-107) 01/23/24 16:31 Carbon Dioxide 30 mmol/L (21-32) 01/23/24 16:31 Anion Gap 4 (3-11) 01/23/24 16:31 BUN 23 mg/dl (6-23) 01/23/24 16:31 Creatinine 0.99 mg/dl (0.6-1.4) 01/23/24 16: Est Cr Clr Drug Dosing 75.1 ml/min 01/23/24 16:31 Est GFR ( Amer) 88.4 ml/min 01/23/24 16:31 Est GFR (Non-Af Amer) 76.3 ml/min 01/23/24 16:31 BUN/Creatinine Ratio 23.2 (10-20) H 01/23/24 16:31 Glucose 88 mg/dl (70-99(Fasting)) 01/23/24 16:31 Calcium 9.3 mg/dl (8.6-10.3) 01/23/24 16:31 Total Bilirubin 0.4 mg/dl (0.2-1.0) 01/23/24 16:31 AST 17 U/L (13-39) 01/23/24 16:31 ALT 5 U/L (7-52) L 01/23/24 16:31 Alkaline Phosphatase 41 U/L (34-104) 01/23/24 16:31 Troponin I High Sens 7.3 pg/ml (0-20) 01/23/24 19:31 Total Protein 6.5 gm/dl (6.0-8.3) 01/23/24 16:31 Albumin 4.1 gm/dl (3.4-5.0) 01/23/24 16:31 Globulin 2.4 gm/dl (2.5-4.0) L 01/23/24 16:31 Albumin/Globulin Ratio 1.7 (0.9-2) 01/23/24 16:31 Impressions Chest X-Ray 01/23/24 16:21 XR chest 1V not portable HISTORY: 73 years-old Male Chest pain, nonspecific COMPARISON: 01/01/2014 TECHNIQUE: AP view of the chest FINDINGS: Calcified pleural plaques redemonstrated. Cardiomegaly with coronary arterial stenting. No pneumothorax, pleural effusion or airspace consolidation. Bones appear grossly intact. IMPRESSION: 1. No acute process. 2. 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 ACT 112: Negative or not required by law. The above report was generated using voice recognition software. It may contain grammatical, syntax or spelling errors. Electronically signed by: Duke Hallman M.D. 01/23/2024 5:06 PM Chest CTA 01/23/24 17:20 CT angio chest dissec wo/w con CT DOSE: 955.87 mGy.cm HISTORY: 73 years-old Male with chest pain radiating into back. Acute chest pain TECHNIQUE: Multiple CTA images of the chest were obtained with and without the intravenous administration of 118 ml Optiray. Coronal and sagittal MIPS were obtained from the axial data set and were submitted for review. All measurements were obtained according to NASCET criteria. A dose lowering technique was utilized adhering to the principles of ALARA. COMPARISON: Chest radiograph of same day, chest CT 09/24/2022 FINDINGS: CTA: Mild cardiomegaly. Extensive coronary artery calcifications. No pericardial effusion. Unremarkable thoracic aorta without aneurysm or dissection. There is mild thoracic aortic atherosclerosis. No intramural or mediastinal hematoma on the noncontrast study. No pulmonary emboli identified. CT CHEST: Subcentimeter hypodense inferior left thyroid nodule. No lymphadenopathy. Pectus excavatum. Calcified pleural plaques redemonstrated bilaterally. There is no pneumothorax, pleural effusion, airspace consolidation or pulmonary edema. No suspicious pulmonary nodules or masses. Central airways are patent. No acute upper abdominal abnormality. The soft tissues are within normal limits. No acute fracture identified. IMPRESSION: 1. Unremarkable CTA of the chest. No thoracic aortic aneurysm or dissection. 2. No pleural effusion or airspace consolidation. 3. 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 ACT 112: Negative or not required by law. The above report was generated using voice recognition software. It may contain grammatical, syntax or spelling errors. Electronically signed by: Duke Hallman M.D. 01/23/2024 6:59 PM ECG Additional Comments: ECG. Normal sinus rhythm at a rate of 78. Possible left atrial enlargement. No significant change was found. Code Status & VTE Plan VTE Prophylaxis Plan VTE Prophylaxis will be ordered: Yes
[2024-01-24] MEDS ORDERED: ACETAMINOPHEN 325 MG TAB PO PRN (02:05)
[2024-01-24] MEDS ORDERED: NITROGLYCERIN SL 0.4 MG/TAB TAB SL PRN (02:05)
[2024-01-24 04:43] LABS: Basophils # (auto) 0.03 K/uL (0.00-0.20); Basophils % (auto) 0.6 %; Eosinophils # (auto) 0.18 K/uL (0.00-0.50); Eosinophils % (auto) 3.5 %; Hematocrit (blood only) 38.5 % (42.0-52.0); Hemoglobin 12.9 g/dl (14.0-18.0); Immature Granulocytes # (auto) 0.01 K/uL (0.01-0.20); Immature Granulocytes % (auto) 0.2 %; Lymphocytes # (auto) 1.64 K/uL (1.20-3.40); Mean Corpuscular Hemoglobin 30.1 pg (25.0-34.0); Mean Corpuscular Hgb Conc 33.5 g/dL (32.0-36.0); Mean Corpuscular Volume 89.7 fL (80.0-100.0); Mean Platelet Volume 9.4 fL (9.4-12.4); Monocytes # (auto) 0.56 K/uL (0.11-0.59); Monocytes % (auto) 10.9 %; Neutrophils % (auto) 52.8 %; Platelet Count 242 K/uL (130-400); RDW Coefficient of Variation 12.2 % (11.5-14.5); Red Blood Count 4.29 M/uL (4.70-6.10); White Blood Count 5.12 K/ul (4.8-10.8)
[2024-01-24 04:53] LABS: BUN Creatinine Ratio 20.7 (10-20); Calcium 8.6 mg/dl (8.6-10.3); Creatinine Clr Calc Pharmacy 85.5 ml/min; Est GFR (African American) 100.6 ml/min; Est GFR (Non-African American) 86.8 ml/min; Magnesium 1.9 mg/dl (1.7-2.4); Potassium 3.8 mmol/L (3.5-5.1)
[2024-01-24 05:00] LABS: Troponin I High Sensitivity 8.4 pg/ml (0-20)
[2024-01-24] MEDS: GLUCOSAMINE SULFATE 500 MG CAP PO SCH (07:09)
[2024-01-24] MEDS: SERTRALINE HCL 50 MG TABLET PO SCH (07:10)
[2024-01-24] MEDS: MULTIVITAMIN TAB PO SCH (07:10)
[2024-01-24] MEDS: CARBIDOPA/LEVODOPA 25/100MG TAB PO SCH (07:10)
[2024-01-24] MEDS: lisinopril 10 MG TAB PO SCH (07:10)
[2024-01-24] MEDS: ASPIRIN 81 MG ECTAB PO SCH (07:11)
[2024-01-24] MEDS: APIXABAN 5 MG TABLET PO SCH (07:11)
[2024-01-24] MEDS: busPIRone 5 MG TAB PO SCH (07:12)
--- NOTE | 2024-01-24 07:32 | Cardiology Consultation ---
Date of Consultation January 24, 2024 Assessment & Plan (1) CAD (coronary artery disease): (2) Chest pain: (3) Paroxysmal atrial fibrillation: Plan Impression: 73-year-old male with known history of multivessel coronary disease presents with symptoms of chest and back pain unrelieved by nitroglycerin. Known multivessel chronic coronary disease as described in detail under problem list. Currently chest pain free. HS troponin negative x3. Plan: Coronary artery disease: Chest pain symptoms with questionable cause: cardiac angina vs msk vs anxiety vs other. -Continue ASA 81 mg daily and statin therapy as ordered. -Intolerant to Ranexa in the past (unknown issue). ? hx of hypotension with Norvasc. -Unable to add beta octavio due to slow resting heart rate. -Discussed risk vs benefit of intervention of the RCA/OM; patient would prefer medical management if possible. Should intervention be warranted will need to consider transfer to tertiary care center. Further recommendations pending Dr. Avilez's assessment. Paroxysmal atrial fibrillation: History of paroxysmal atrial fibrillation/flutter status post PVI, cavotricuspid isthmus ablation 06/19/2020 Maintaining sinus rhythm on telemetry. -Not on beta-octavio due to slow resting heart rate -Continue Eliquis 5 mg twice daily for stroke prevention Case discussed with Dr. Avilez. Further recommendations pending assessment. I spent a total of 40 minutes on the date of service in preparation, delivery, and documentation of the care provided to the patient excluding any time spent in the performance of separately billed services. MARTHA Richard Department of Cardiology, [facility] This chart was completed in part utilizing Speech Voice Recognition Software. Grammatical errors, random word insertions, pronoun errors, and incomplete sentences are an occasional consequence of this system due to software limitations, ambient noise, and hardware issues. Any formal questions or concerns about the content, text, or information contained within the body of this dictation should be directly addressed to the provider for clarification. Supervising Physician Co-Signing Physician Notes Attending attestation: Case reviewed with the advanced practitioner. I have personally performed a history and physical examination on the patient. I have reviewed the advanced practitioner's documentation on the date of service referenced in note, and I agree with, and take responsibility for the plan of care. Subjective: Patient feeling well. Spouse is at the bedside. Telemetry reveals SB. Exam: CV: regular rhythm, no murmurs, no edema Data: Repeat EKG this morning 9:36 AM revealed sinus bradycardia 51 bpm, normal EKG. Serial tracings performed yesterday without ischemic changes. Impression/ Plan: Patient experienced anterior chest tightness as well as a pain between his shoulder blades while sitting nails and a baseboard at his daughter's house. Sy mptoms were not relieved with nitroglycerin x 4. Serial EKG tracings negative, high-sensitivity troponin levels negative x 3. Workup thus far reassuring especially in light of cardiac catheterization results from last month. I question if the reason why his symptoms were refractory to nitroglycerin were because this was not angina to begin with. We previously discussed adding a long-acting nitroglycerin medication such as isosorbide mononitrate, but the patient and I both had concerns with regards to his risk of orthostasis in the setting of Parkinson's disease and I continue to have such concerns and if the sublingual nitroglycerin did not alleviate his pain, I would anticipate that the addition of isosorbide mononitrate would not change things either. I question if his symptoms yesterday were musculoskeletal. -Advance diet. No further cardiac workup felt to be indicated at this time. Patient stable for discharge from a cardiac perspective. I spent a total of 20 minutes coordinating, documenting, and providing care for this patient excluding time spent in the performance of separately billed services or time spent by another provider. Rakan Avilez DO History of Present Illness Reason for Consultation: Chest pain Requesting Physician: Karolina rivera Attending Physician: Clive Higgins MD History of Present Illness 73-year-old male who presents to the emergency department with recurrent chest and back pain. Has had multiple visits to [facility] for similar concerns. On 12/29/2023 patient presented with chest pain relieved by nitroglycerin. Patient declined admission and left AMA. Represented on 01/02/2024 with recurrent chest pain symptoms relieved by nitro. Symptoms described as substernal chest pain with radiation to the jaw left arm with tingling in the left hand. Echocardiogram revealed a borderline hyperdynamic LVEF of 65 to 70% without wall motion abnormalities or significant valvular disease. Moderate concentric LVH noted. He ultimately underwent cardiac catheterization with Dr. Valdez on 01/03/2024. Patient was found to have multivessel CAD. -Widely patent proximal to mid LAD stents with 40% in-stent restenosis. 90% ostial jailed third diagonal 50% proximal OM3 70 to 80% disease in small, nondominant RCA It was felt that the LAD/diagonal disease was largely unchanged but there was some progression in OM 3 and nondominant RCA--medical management was initially recommended but with recommendations to consider PCI of RCA, +/- FFR of OM 3 if chest pain symptoms return. Recommendations per Dr. Avilez's note dated 01/03/2024: "Ongoing medical therapy for coronary heart disease recommended. His baseline heart rate is in the 50s without beta-octavio and therefore I do not feel he would be a candidate for this. 1 option would be a topical nitroglycerin patch which could be removed if he was to have orthostatic hypotension related to his Parkinson's, but patient has headache issues at baseline especially around the time of when he takes his carbidopa/ levodopa and he is already concerned that he would not be able to tolerate topical nitrates. He describes having been on ranolazine in the past which was subsequently discontinued but patient cannot remember the specifics but believes it was due to intolerance. This is helpful, as I would speculate that if he was tried with ranolazine in the past but these symptoms are not new. Treatment of the anxiety may be best neck step, will discuss if he is a candidate to receive sertraline in the setting of carbidopa/levodopa with the hospital service." THIS ADMISSION: Patient now presents with chest and simultaneous back pain. Took 4 nitros without relief in symptoms. Notes that when these symptoms occurred he was bent over in an "obscure" position setting nails into a baseboard. Pain was described as a sharp stabbing discomfort. This is different than his angina symptoms in 2009 (previously described as dull achy chest discomfort with radition to the back, neck, and left arm + SOB) CTA of the chest negative for PE or aortic dissection. EKG showing normal sinus rhythm without any acute ST segment changes High-sensitivity troponin levels negative x 3 Upon entrance into the room patient resting in bed. No acute concerns. No return of chest pain. Denies palpitations, but has noticed and increase in his heart rate with activity-- knows this due to his smart watch. No SOB, lightheadedness. No orthopnea or PND. No lower extremity edema. When discussing his recent heart cath patient notes that if any intervention is warranted he would prefer to have this done at a tertiary care center. However, he prefers medical management at this point as he understands intervention would have moderate risk. Primary outpatient rope maker: Dr. Golden Outpatient cardiac medications: Atorvastatin 80 mg daily Eliquis 5 mg twice daily Lisinopril 10 mg daily Aspirin 81 mg daily Past medical history: Chronic coronary disease Status post LAD stent x2, 2009 Cardiac cath 2014 with 50% proximal LAD, 70 to 80% first diagonal, diffuse disease codominant RCA Cardiac cath 01/03/2024--multivessel CAD with 40% in-stent restenosis LAD/diagonal stent and mild progression in OM 3 and nondominant RCA--medical management advised Paroxysmal atrial fibrillation/flutter status post PVI, cavotricuspid isthmus ablation 06/19/2020 Hypertension Hyperlipidemia Parkinson's Disease Allergies Allergy/AdvReac Type Severity Reaction Status Date / Time acetazolamide AdvReac Severe Tachycardia Verified 11/04/22 10:18 amlodipine AdvReac Severe hypotension Verified 11/04/22 10:18 Home Medications Medication Instructions Recorded Confirmed Type glucosamine-chondroitin 250 mg-200 2 tab PO QAM 08/10/18 01/23/24 History mg tablet (Osteo Bi-Flex) multivitamin 1 tab PO QAM 08/10/18 01/23/24 History omega 8-gwl-ctl-fish oil 1,000 mg 2 cap PO QAM 01/29/20 01/23/24 History (120 mg-180 mg) capsule (Fish Oil) atorvastatin 80 mg tablet 80 mg PO PM #90 tabs 02/13/20 01/23/24 Rx psyllium husk 0.4 gram capsule 0.4 g PO QPM 08/26/20 01/23/24 History (Metamucil) lisinopril 10 mg tablet 10 mg PO QAM 11/18/21 01/23/24 History ibuprofen 400 mg tablet 400 mg PO Q8H PRN Pain 03/29/22 01/23/24 History acetaminophen 500 mg tablet 1,000 mg (2 x 500 mg) PO Q8 PRN 03/31/22 01/23/24 Rx (Tylenol Extra Strength) headache #30 tabs apixaban 5 mg tablet (Eliquis) 5 mg PO BID 06/03/22 01/23/24 History aspirin 81 mg tablet,delayed 81 mg PO DAILY 06/03/22 01/23/24 History release (Adult Aspirin Regimen) valacyclovir 1 gram tablet 2,000 mg (2 x 1 gram) PO Q12H PRN 06/03/22 01/23/24 Rx cold sores #30 tabs carbidopa 25 mg-levodopa 100 mg 1 tab PO TID 01/02/24 01/23/24 History tablet carbidopa ER 50 mg-levodopa 200 mg 1 tab PO QPM 01/02/24 01/23/24 History tablet,extended release melatonin 6 mg PO DAILY 01/02/24 01/23/24 History nitroglycerin 0.4 mg sublingual 0.4 mg sublingual UD PRN Chest 01/04/24 01/23/24 Rx tablet Pain #30 tabs buspirone 5 mg tablet 5 mg PO BID 01/23/24 01/23/24 History sertraline 50 mg tablet 25 mg PO DAILY 01/23/24 01/23/24 History Patient History Medical History Headache Parkinson's disease NEW DX 09/03/21 Hx of esophageal reflux Migraines History of atrial fibrillation CARDIAC ABLATION 2019 Seasonal allergies Osteoarthritis On anticoagulant therapy Myocardial infarction 2008 Hypertension Hyperlipidemia Surgical History History of cardiac cath 2014-no stents-- follows with Dr. Valdez H/O cardiac radiofrequency ablation 2019 [place] teeth removed History of cataract surgery RT/LEFT Hx of heart artery stent 2009 x 2 (DONE AT [place] [place]) FOLLOWED BY DR. GOLDEN Hx of vitrectomy RT History of tonsillectomy and adenoidectomy Hx of colonoscopy Hx of esophagogastroduodenoscopy Hx of arthroscopy of right knee Hx of arthroscopy of left knee History of brain shunt 2009--posterior benign cyst removal, "a piece of tubing sits at site to keep cyst from regrowing" @ [facility] [place] Family History Father Coronary heart disease Heart disease Peripheral arterial disease Hypertension Mother Allergies Hypertension Cardiomyopathy Brother History of kidney cancer Cancer Grandfather Stroke Uncle Myocardial infarction Other No family history of adverse response to anesthesia Denies family history of Ovarian cancer Prostate cancer Diabetes Breast cancer Lung cancer Colorectal cancer Asthma Social History Smoking Status: Former smoker Tobacco Type: Smokeless Tobacco (Dip or Chew) packs per day: 0.5; Second Hand Exposure: No; Do You Dip or Chew Tobacco: Yes; Tobacco Cessation Education Requested by Patient: No Hx Alcohol Use: Yes Alcohol type: wine Alcohol Intake Frequency: 4 or More x per/Week Alcohol Intake Frequency Comment: 1-3 drinks 5 days a week Hx Substance Use: No Preferred Language: Yoruba Communication Ability: Effective Visual Impairment: Limited Hearing Ability: Use of Hearing Aid Assistant Elementary Teacher Required: No Beliefs That Will Affect Care: None marital status: Current Living Situation: Spouse Current Living Situation Comment: with current occupational status: retired 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 How many Children do You have: 2 Other Information That Helps Us Care for You: No Feels Safe at Home: Yes Safety Concerns: Feels Safe At This Time Childhood Exposure to Second-Hand Smoke: Yes caffeine: Yes Dental Care, Regularly: Yes Physical Activity Frequency: Daily Seatbelt Use: always Sunscreen Use: Yes Assistive Devices: Cane Review of Systems Review of Systems: All systems reviewed & are unremarkable except as noted in HPI & below Physical Exam Constitutional: well developed and well nourished; no acute distress Eyes: PERRL, conjunctivae normal, anicteric sclerae Neck: normal visual inspection and trachea midline Respiratory: normal respiratory effort, lungs clear to auscultation Cardiovascular: RRR, no murmur, no edema Rate/Rhythm: regular rate and regular rhythm Heart Sounds: normal S1, normal S2 and + murmur (faint systolic murmur ) Vessels: no JVD Extremities: no edema Gastrointestinal (Abdomen): normal bowel sounds, soft, nontender, no hepatosplenomegaly Skin: no rashes, warm and dry Neurologic: PERRL, EOMI, accommodation nl, no face palsy, no dysarthria Psychiatric: A+Ox3, euthymic affect Results & Data Vital Signs (Past 12 Hours) Vital Signs Temp Pulse Resp BP BP Pulse Ox Pulse Ox 01/24/24 06:00 57 L 15 96 01/24/24 04:00 49 L 17 97 01/24/24 04:00 130/71 01/24/24 02:05 36.6 C 01/24/24 02:05 96 01/24/24 02:04 146/81 H 01/24/24 02:04 56 L 17 95 01/24/24 02:00 53 L 01/24/24 00:42 01/24/24 00:26 57 L 01/23/24 22:21 01/23/24 22:10 51 L 16 96 01/23/24 22:00 49 L 20 95 01/23/24 22:00 153/87 H 01/23/24 21:50 53 L 14 97 01/23/24 21:40 53 L 13 96 01/23/24 21:30 154/86 H 01/23/24 21:30 50 L 16 96 01/23/24 21:20 51 L 16 96 01/23/24 21:10 51 L 15 97 01/23/24 21:00 52 L 15 96 01/23/24 21:00 144/84 H 01/23/24 20:50 55 L 17 97 01/23/24 20:40 52 L 15 97 01/23/24 20:33 134/79 01/23/24 20:32 134/79 01/23/24 20:32 57 L 16 98 01/23/24 20:30 53 L 20 97 01/23/24 20:27 53 L 01/23/24 20:20 52 L 16 97 01/23/24 20:10 52 L 15 96 01/23/24 20:00 53 L 20 98 01/23/24 19:50 59 L 19 97 01/23/24 19:40 51 L 17 98 01/23/24 19:30 53 L 17 98 01/23/24 19:20 55 L 17 97 O2 Del Method O2 Del Method O2 Flow Rate 01/24/24 06:00 01/24/24 04:00 01/24/24 04:00 01/24/24 02:05 01/24/24 02:05 Room Air 01/24/24 02:04 01/24/24 02:04 01/24/24 02:00 01/24/24 00:42 Room Air 01/24/24 00:26 01/23/24 22:21 Room Air 96 01/23/24 22:10 01/23/24 22:00 01/23/24 22:00 01/23/24 21:50 01/23/24 21:40 01/23/24 21:30 01/23/24 21:30 01/23/24 21:20 01/23/24 21:10 01/23/24 21:00 01/23/24 21:00 01/23/24 20:50 01/23/24 20:40 01/23/24 20:33 01/23/24 20:32 01/23/24 20:32 01/23/24 20:30 01/23/24 20:27 01/23/24 20:20 01/23/24 20:10 01/23/24 20:00 01/23/24 19:50 01/23/24 19:40 01/23/24 19:30 01/23/24 19:20 Laboratory Results Cardiac Enzymes 01/23/24 01/23/24 01/24/24 Range/Units 16:31 19:31 04:22 AST 17 (13-39) U/L Troponin I High Sens 6.8 7.3 8.4 (0-20) pg/ml Coagulation 01/23/24 Range/Units 16:31 PT 11.1 (9.0-12.0) Seconds APTT 25 (21-31) Seconds CBC 01/23/24 01/24/24 Range/Units 16:31 04:22 WBC 5.26 5.12 (4.8-10.8) K/ul RBC 4.49 L 4.29 L (4.70-6.10) M/uL Hgb 13.4 L 12.9 L (14.0-18.0) g/dl Hct 40.6 L 38.5 L (42.0-52.0) % Plt Count 298 242 (130-400) K/uL Neut # (Auto) 3.16 2.70 (1.40-6.50) K/uL Lymph # (Auto) 1.37 1.64 (1.20-3.40) K/uL Snyder # (Auto) 0.57 0.56 (0.11-0.59) K/uL Eos # (Auto) 0.12 0.18 (0.00-0.50) K/uL Baso # (Auto) 0.02 0.03 (0.00-0.20) K/uL Comprehensive Metabolic Panel 01/23/24 01/24/24 Range/Units 16:31 04:22 Sodium 140 139 (136-145) mmol/L Potassium 4.2 3.8 (3.5-5.1) mmol/L Chloride 106 105 (98-107) mmol/L Carbon Dioxide 30 28 (21-32) mmol/L BUN 23 18 (6-23) mg/dl Creatinine 0.99 0.87 (0.6-1.4) mg/dl Glucose 88 102 H (70-99(Fasting)) mg/dl Calcium 9.3 8.6 (8.6-10.3) mg/dl AST 17 (13-39) U/L ALT 5 L (7-52) U/L Alkaline Phosphatase 41 (34-104) U/L Total Protein 6.5 (6.0-8.3) gm/dl Albumin 4.1 (3.4-5.0) gm/dl Intake and Output 01/23/24 01/24/24 01/24/24 22:59 06:59 14:59 Intake Total 0 / 0 Output Total 150 / 150 Balance -150 / -150 Intake: Oral 0 / 0 Output: Urine 150 / 150 Other: Weight 82.3 kg 82.3 kg Weight Measurement Method Chair Scale Built in [facility] Diagnostic Findings Echo 01/02/2024 LVEF 65 to 70% No wall motion abnormalities Grade 1 diastolic dysfunction Moderate concentric LVH No significant valvular disease (1) CAD (coronary artery disease) Associated angina: unspecified whether angina present Coronary Disease- Associated Artery/Lesion type: [place] artery [place] vs. transplanted heart: [place] heart Qualified Code(s): I25.10 - Atherosclerotic heart disease of [place] coronary artery without angina pectoris (2) Chest pain Chest pain type: unspecified Qualified Code(s): R07.9 - Chest pain, unspecified
--- NOTE | 2024-01-24 09:04 | Electrocardiogram Report ---
Test Reason : Blood Pressure : / mmHG Vent. Rate : 078 BPM Atrial Rate : 078 BPM P-R Int : 158 ms QRS Dur : 078 ms QT Int : 362 ms P-R-T Axes : 074 049 056 degrees QTc Int : 412 ms Normal sinus rhythm Possible Left atrial enlargement Borderline ECG When compared with ECG of 02-JAN-2024 12:32, No significant change was found Confirmed by Danie Botello ([id number]) on 01/24/2024 9:03:56 AM Referred By: REFERRED SELF Confirmed By:Alejandro Botello
--- OUTSIDE RECORDS SUMMARY | 2024-01-24 10:19 | External Medical Summary | Summary of Care ---
Author Name Unknown Organization [facility] Address [address] [place] [address] Phone [phone] Care Team Providers Care Duster Tender Name Role Phone Dominick Peterson MD Primary Care Provider + Reason for Visit * Reason Onset Date Comments Advice 01/10/2024 Encounter Details Date Type Department Care Team (Late st Contact Info) Description 01/10/2024 Telephone Neurology, [facility] [address] [place] [address] Services, [facility] [address] [place] [address] Advice Allergies Active Allergy Reactions Criticality Noted Date Comments Acetazolamide High 03/26/2022 Other reaction(s): Tachycardia Amlodipine 06/19/2020 documented as of this encounter (statuses as of 01/10/2024) Medications Medication Sig Dispensed Refills Start Date End Date Status nitroglycerin (NITROSTAT) 0.4 MG SUBL 0 08/03/2019 Active Aspirin 81 MG Tablet Take 1 Tablet by mouth in the morning. 0 Active [place]-3 Fatty Acids (FISH OIL) 1200 MG CPDR Take 2 Caps by mouth daily. 0 Active Misc Natural Products (OSTEO BI-FLEX JOINT SHIELD) Tablet Take 1 Tab by mouth daily. 0 Active Multiple Vitamins-Minerals (MULTIVITAMIN ADULTS) TABS Take by mouth. 0 Active Acetaminophen 500 MG Oral Capsule Take 1 Capsule by mouth every 4 hours as needed. 0 Active Docusate Sodium 100 MG Oral Capsule Take 1 Capsule by mouth in the morning and 1 Capsule before bedtime. As needed. 0 Active Metamucil 28.3 % Oral Powder (Psyllium) Take by mouth daily . 0 Active valACYclovir HCl 1 GM Oral Tablet (Valtrex) Take 1 Tablet by mouth in the morning and 1 Tablet at noon and 1 Tablet before bedtime. As needed for cold sores. 0 11/24/2022 Active Eliquis 5 MG Oral Tablet Take 1 Tablet by mouth in the morning and 1 Tablet before bedtime. 180 Tablet 3 09/29/2023 Active Lisinopril 10 MG Oral Tablet (Prinivil)Indications: PAF (paroxysmal atrial fibrillation) (HCC) Take 1 Tablet by mouth in the morning. 90 Tablet 3 09/29/2023 Active Atorvastatin Calcium 80 MG Oral Tablet (Lipitor)Indications:H yperlipidemia with target LDL less than 100 Take 1 Tablet by mouth at bedtime. 90 Tablet 3 09/29/2023 Active Melatonin 5 MG Oral Tablet DisintegratingIndicati ons:Rapid Eye Movement Sleep Behavior Disorder Take 1 Tablet by mouth every night at bedtime. 0 Active Polyethylene Glycol 3350 17 GM Oral Packet (Miralax) Take 1 Packet by mouth in the morning. 0 Active Carbidopa-Levodopa 25-100 MG Oral Tablet (Sinemet)Indications:P arkinson's disease without dyskinesia or fluctuating manifestations (HCC) TAKE 1 TABLET BY MOUTH IN THE MORNING AT AT NOON AND BEFORE BEDTIME 270 Tablet 1 12/27/2023 Active Carbidopa-Levodopa ER 50-200 MG Oral Tablet Extended Release (Sinemet CR)Indications:Ruth on's disease without dyskinesia or fluctuating manifestations (HCC) TAKE 1 TABLET BY MOUTH EVERYDAY AT BEDTIME 90 Tablet 1 12/27/2023 Active busPIRone HCl 5 MG Oral Tablet (Buspar)Indications:An xiety Take 1 Tablet by mouth in the morning and 1 Tablet before bedtime. 60 Tablet 0 01/09/2024 Active Sertraline HCl 50 MG Oral Tablet (Zoloft)Indications:An xiety 0.5 pill once a day by mouth for 2 weeks then 1 pill daily 30 Tablet 5 01/09/2024 Active documented as of this encounter (statuses as of 01/10/2024) Active Problems Problem Noted Date Diagnosed Date Parkinson's disease 02/16/2023 S/P ablation of atrial fibrillation 06/19/2020 PVC (premature ventricular contraction) 06/09/20 20 Coronary artery disease invo lving [place] coronary artery of [place] heart without angina pectoris 09/21/2019 History of coronary artery stent placement 09/21 PAF (paroxysmal atrial fibrillation) 09/21/2019 Atrial flutter 09/21/2019 HTN, goal below 130/80 09/21/2019 Hyperlipidemia with target LDL less than 100 06/2020 documented as of this encounter (statuses as of 01/10/2024) Resolved Problems Problem Noted Date Diagnosed Date Resolved Date Paroxysmal A-fib 05/02/2020 10/04/2023 Overview: Added automatically from request for surgery [id number] documented as of this encounter (statuses as of 01/10/2024) Immunizations Name Administration Dates Next Due COVID-19 mRNA, LNP-s, No Pre serve, 2-Dose Series (ZenDay) 07/11/2021,11/27/2020,11/06/2020 Pneumococcal Conjugate Vacc, 13 Valent (Prevnar) 07/18/2018 Pneumococcal Polysaccharide PPV23 (Pneumovax) 07/20/2019 Seasonal Influenza Virus Vac cine, Unspecified Formulation 07/20/2019,05/29/2018 Seasonal Influenza, Trivalen t, High Dose, No Preserve, IM 07/20/2019 Zoster Vaccine Recombinant (Shingrix) 01/28/2021 ,09/02/2020 documented as of this encounter Social History Tobacco Use Types Packs/Day Years Used Date Smoking Tobacco: Former Cigarettes Smokeless Tobacco: Current Chew Alcohol Use Standard Drinks/Week Comments Yes 0 (1 standard drink = 0.6 oz pur e alcohol) several times a week PHQ-2 Answer Date Recorded PHQ Adult Total Score 5 09/03/2021 Hunger Vital Sign Answer Date Recorded Within the past 12 months, y ou worried that your food would run out before you got the money to buy more. Never true 11/22/19 24 Within the past 12 months, t he food you bought just didn't last and you didn't have money to get more. Never true 11/22/2023 Sex and Gender Information Value Date Recorded Sex Assigned at Male 02/15/2023 2:26 PM EDT Gender Identity Male 02/15/2023 2:26 PM EDT Sexual Orientation Straight 02/15/2023 2: 26 PM EDT Job Start Date Occupation Industry Not on file Not on file Not on file documented as of this encounter Functional Status Functional Status Response Date of Assess ment Are you deaf or do you have serious difficulty h earing? No 06/19/2020 Are you blind or do you have serious difficulty seeing, even when wearing glasses? No 06/19/2020 Do you have serious difficul ty walking or climbing stairs? (5 years old or older) No 06/19/2020 Do you have difficulty dress ing or bathing? (5 years old or older) No 06/19/2020 Because of a physical, menta l, or emotional condition, do you have difficulty doing errands alone such as visiting a doctor s office or shopping? (15 years old or older) No 06/19/20 20 Cognitive Status Response Date of Assessm ent Because of a physical, menta l, or emotional condition, do you have serious difficulty concentrating, remembering, or making decisions? (5 years old or older) No 06/19/2020 documented as of this encounter Miscellaneous Notes * Telephone Encounter - Monica Mercedes OSA - 01/10/2024 10:35 AM EDT Speech pathology referral faxed to [facility] [phone] * Telephone Encounter - Mikal Banegas OSA - 01/10/2024 10:00 AM EDT Requested Information from caller: Who is calling facility name: [facility] Provider patient is established with: Dr. Jackson What is the concern or issue they are having: Facility looking to have speech pathology referral faxed over to them. How long has the issue been going on: ongoing Any additional details to add: no Pts phone number for nurse to call back: [phone] If forms need to be faxed- Please provide fax number: [phone] documented in this encounter Plan of Treatment Upcoming Encounters Date Type Department Care Team (Late st Contact Info) Description 01/12/2024 11:30 AM EDT Office Visit Cardiology, [address] [place] [address] Morro Golden, DO [address] [place] [address] 03/21/2024 10:30 AM EDT Office Visit Urology Macrina Whitakern [address] [place] [address] Louie Hernandez Jr., MD [address] [facility] [place] [address] 04/03/2024 3:00 PM EDT Office Visit General Internal Medicine [facility] [address] [facility] [place] [address] Dominick Peterson MD [address] [facility] [place] [address] 04/05/2024 8:00 AM EDT Telemedicine Sleep Disorders Ctr [facility] [address] [place] [address] Leatha Quinn, [address] [place] [address] 07/09/2024 11:20 AM EDT [facility] [address] [place] [address] Juan Carranza MD [address], [place] [id number] 08/31/2024 10:00 AM EST Office Visit Neurology [facility] [address] [facility] [place] [address] Shane Jackson, DO [address], [place] [id number] Health Maintenance Due Date Last Done Comments DTaP,Tdap,and Td Vaccines (1 - Tdap) 11/16/1971 Cologuard 1997 Fecal Occult Blood Test 1997 Sigmoidoscopy 1997 AAA Screening 2017 Depression Screening 09/03/2022 09/03/2021 COVID-19 Vaccine ( season) 2023 07/11/2021, 11/27/2020, 11/06/2020 GFR 10/07/2024 10/07/2023, 06/04/2023, 03/25/2022, Additional history exists Albumin/Creatinine Ratio 02/17/2026 02/17/2023 Colonoscopy 11/25/2026 11/25/2021 Colorectal Cancer Screening 11/25/2026 Pneumococcal Vaccine: 65+ Years Completed 07/20/2019, 07/18/2018 Zoster Vaccines Completed 01/28/2021, 09/02/2020 RETIRED - COLONOSCOPY-EVERY 5 YRS AGES 18-100 Discontinued 11/25/2021 Influenza Vaccine (FLU shot) Completed 10/09/2023, 07/09/2020, 07/20/2019, Additional history exists GARDASIL-HPV IMMUNIZATION SERIES Aged Out No longer eligible based on patient's age to complete this topic Hepatitis B Aged Out No longer eligi ble based on patient's age to complete this topic MENINGOCOCCAL (MENACTRA/MENVEO) Aged Out No longer eligible based on patient's age to complete this topic documented as of this encounter Medical Devices Not on filedocumented as of this encounter Advance Directives Latest Code Status on File Code Status Date Activated Date Inactivated Comments Full Code 06/19/2020 12:08 PM 06/20/2020 12:59 PM Thi s order reflects the patients wishes and were consensually agreed upon. Care Teams Duster Tender Relationship Specialty Start Date End Date Dominick Peterson MD [address] [place] [address] PCP - General Internal Medicine 06/14/23 documented as of this encounter
--- OUTSIDE RECORDS SUMMARY | 2024-01-24 10:19 | External Medical Summary | Summary of Care ---
Author Name Unknown Organization [facility] Address [address] [place] [address] Phone [phone] Care Team Providers Care Corporate Responsibility Officer Name Role Phone Dominick Peterson MD Primary Care Provider + Reason for Visit * Reason Comments Follow Up Encounter Details Date Type Department Care Team (Late st Contact Info) Description 01/12/2024 11:30 AM EDT Office Visit Cardiology, [facility] [address] [place] [address] Morro Golden DO [address] [place] [address] Coronary artery disease involving koi coronary artery of koi heart without angina pectoris*; PAF (paroxysmal atrial fibrillation) ([facility]) Allergies Active Allergy Reactions Criticality Noted Date Comments Acetazolamide High 03/26/2022 Other reaction(s): Tachycardia Amlodipine 06/19/2020 documented as of this encounter (statuses as of 01/12/2024) Medications Medication Sig Dispensed Refills Start Date End Date Status nitroglycerin (NITROSTAT) 0.4 MG SUBL 0 08/03/2019 Active Aspirin 81 MG Tablet Take 1 Tablet by mouth in the morning. 0 Active Troutdale-3 Fatty Acids (FISH OIL) 1200 MG CPDR [...] and 1 Tablet before bedtime. 180 Tablet 09/29/2023 Active Lisinopril 10 MG Oral Tablet (Prinivil)Indication s:PAF (paroxysmal atrial fibrillation) (HCC) Take 1 Tablet by mouth in the morning. 90 Tablet 09/29/2023 Active Atorvastatin Calcium 80 MG Oral Tablet (Lipitor)Indications :Hyperlipidemia with target LDL less than 100 Take 1 Tablet by mouth at bedtime. 90 Tablet 09/29/2023 Active Melatonin 5 MG Oral Tablet DisintegratingIndica tions:Rapid Eye Movement Sleep Behavior Disorder Take 2 Tablets by mouth every night at bedtime. 0 Active Polyethylene Glycol 3350 17 GM Oral Packet (Miralax) Take 1 Packet by mouth in the morning. 0 Active Carbidopa-Levodopa 25-100 MG Oral Tablet (Sinemet)Indications :Parkinson's disease without dyskinesia or fluctuating manifestations (HCC) TAKE 1 TABLET BY MOUTH IN THE MORNING AT AT NOON AND BEFORE BEDTIME 270 Tablet 12/27/2023 Active Carbidopa-Levodopa ER 50-200 MG Oral Tablet Extended Release (Sinemet CR)Indications:Parki nson's disease without dyskinesia or fluctuating manifestations (HCC) TAKE 1 TABLET BY MOUTH EVERYDAY AT BEDTIME 90 Tablet 12/27/2023 Active busPIRone HCl 5 MG Oral Tablet (Buspar)Indications: Anxiety Take 1 Tablet by mouth in the morning and 1 Tablet before bedtime. 60 Tablet 0 01/09/2024 Active Additional Information Patient not taking.Reported on 01/12/2024 Sertraline HCl 50 MG Oral Tablet (Zoloft)Indications: Anxiety 0.5 pill once a day by mouth for 2 weeks then 1 pill daily 30 Tablet 5 01/09/2024 Active Additional Information Patient not taking.Reported on 01/12/2024 documented as of this encounter (statuses as of 01/12/2024) Active Problems Problem Noted Date Diagnosed Date Parkinson's disease 02/16/2023 S/P ablation of atrial fibrillation 06/19/2020 PVC (premature ventricular contraction) 06/09/20 Coronary artery disease invo lving koi coronary artery of koi heart without angina pectoris 09/21/2019 History of coronary artery stent placement 09/21 PAF (paroxysmal atrial fibrillation) 09/21/2019 Atrial flutter 09/21/2019 HTN, goal below 130/80 09/21/2019 Hyperlipidemia with target LDL less than 100 06/2020 documented as of this encounter (statuses as of 01/12/2024) Resolved Problems Problem Noted Date Diagnosed Date Resolved Date Paroxysmal A-fib 05/02/2020 10/04/2023 Overview: Added automatically from request for surgery [id number] documented as of this encounter (statuses as of 01/12/2024) Immunizations Name Administration Dates Next Due COVID-19 mRNA, LNP-s, No Pre serve, 2-Dose Series ([place]) 07/11/2021,11/27/2020,11/06/2020 Pneumococcal Conjugate Vacc, 13 Valent (Prevnar) [...] Answer Date Recorded PHQ Adult Total Score 0 01/11/2024 Hunger Vital Sign Answer Date Recorded Within the past 12 months, y ou worried that your food would run out before you got the money to buy more. Never true 01/11/20 24 Within the past 12 months, t he food you bought just didn't last and you didn't have money to get more. Never true 01/11/2024 Sex and Gender Information Value Date Recorded Sex Assigned at Male 02/15/2023 2:26 PM EDT Gender Identity Male 02/15/2023 2:26 PM EDT Sexual Orientation Straight 02/15/2023 2: 26 PM EDT Job Start Date Occupation Industry Not on file Not on file Not on file documented as of this encounter Last Filed Vital Signs Vital Sign Reading Time Taken Comments Blood Pressure 129/76 01/12/2024 11:42 AM EDT Patient's auto cuff Pulse 66 01/12/2024 11:37 AM EDT Temperature - - Respiratory Rate 16 01/12/2024 11:3 7 AM EDT Oxygen Saturation - - Inhaled Oxygen Concentration - - Weight 83 kg (183 lb) 01/12/2024 11:37 AM EDT Height - - Body Mass Index 24.82 01/09/2024 10:58 AM EDT documented in this encounter Functional Status Functional Status Response [...] No 06/19/2020 documented as of this encounter Progress Notes * Morro Golden, DO - 01/12/2024 12:18 PM EDT Cardiology Outpatient Follow-up Steven Shetty is a 73 year old male who is seen for follow-up of coronary artery disease. HPI: This is a 73-year-old male patient with a history of coronary artery disease and previous LAD stentin 2008. He also has a history of atrial fibrillation and approximally 4 years ago underwent a successful pulmonary vein isolation. He has significant coronary artery disease and had stable angina however, more recently he has been under some increased stress causing some anxiety with increased ches t pain. He had been taking increased sublingual nitroglycerin and eventually was admitted to the hospital where he underwent a cardiac catheterization with Dr. Valdez. The report from this cardiac catheterization is on the chart but essentially it showed that the previous stent in the LAD was patent. He has some significant disease which is mostly in the distal arteries and it was recommended thathe continue with medical management. I saw him in follow-up from that admission today. He is doing well and his chest pain seems to have subsided. Through his primary care physician's office he has been given medications for PASHA, including BuSpar and Zoloft which he has not begun to take yet. Past Medical History: Diagnosis Date Arachnoid cyst s/p fenestration (2009) CAD (coronary artery disease) Cerebral ventriculomegaly Cognitive decline Hyperlipidemia Hypertension Low TSH level Neurologic gait dysfunction Parkinson's disease ([facility]) 02/16/2023 Paroxysmal A-fib ([facility]) s/p ablation Urinary urgency Patient Active Problem List Diagnosis Code Coronary artery disease involving koi coronary artery of koi heart without angina pectoris I25.10 History of coronary artery stent placement Z95.5 PAF (paroxysmal atrial fibrillation) ([facility]) I48.0 Atrial flutter ([facility]) I48.92 HTN, goal below 130/80 I10 Hyperlipidemia with target LDL less than 100 E78.5 PVC (premature ventricular contraction) I49.3 S/P ablation of atrial fibrillation Z98.890, Z86.79 Parkinson's disease ([facility]) G20.A1 Past Surgical History: Procedure Laterality Date ELECTROPHYSIOLOGY EVAL, ATRIAL FIB, PULMONARY VEIN ISOL Bilateral 06/19/2020 PVI RADIOFREQUENCY CATHETER ABLATION performed by Bety Price IV, MD at [facility] No family history on file. Social History Tobacco Use Smoking status: Former Types: Cigarettes Smokeless tobacco: Current Types: Chew Vaping Use Vaping Use: Never used Substance Use Topics Alcohol use: Yes Comment: several times a week Drug use: Never Review of patient's allergies indicates: Allergen Reactions Acetazolamide Other reaction(s): Tachycardia Amlodipine Current Outpatient Medications Medication Sig Dispense Refill Aspirin 81 MG Tablet Take 1 Tablet by mouth in the morning. Troutdale-3 Fatty Acids (FISH OIL) 1200 MG CPDR Take 2 Caps by mouth daily. Misc Natural Products (OSTEO BI-FLEX JOINT SHIELD) Tablet Take 1 Tab by mouth daily. Multiple Vitamins-Minerals (MULTIVITAMIN ADULTS) TABS Take by mouth. Acetaminophen 500 MG Oral Capsule Take 1 Capsule by mouth every 4 hours as needed. Docusate Sodium 100 MG Oral Capsule Take 1 Capsule by mouth in the morning and 1 Capsule before bedtime. As needed. Metamucil 28.3 % Oral Powder (Psyllium) Take by mouth daily . Eliquis 5 MG Oral Tablet Take 1 Tablet by mouth in the morning and 1 Tablet before bedtime. 180 Tablet 3 Lisinopril 10 MG Oral Tablet (Prinivil) Take 1 Tablet by mouth in the morning. 90 Tablet 3 Atorvastatin Calcium 80 MG Oral Tablet (Lipitor) Take 1 Tablet by mouth at bedtime. 90 Tablet 3 Melatonin 5 MG Oral Tablet Disintegrating Take 2 Tablets by mouth every night at bedtime. Polyethylene Glycol 3350 17 GM Oral Packet (Miralax) Take 1 Packet by mouth in the morning. Carbidopa-Levodopa 25-100 MG Oral Tablet (Sinemet) TAKE 1 TABLET BY MOUTH IN THE MORNING AT AT NOONAND BEFORE BEDTIME 270 Tablet 1 Carbidopa-Levodopa ER 50-200 MG Oral Tablet Extended Release (Sinemet CR) TAKE 1 TABLET BY MOUTH EVERYDAY AT BEDTIME 90 Tablet 1 nitroglycerin (NITROSTAT) 0.4 MG SUBL valACYclovir HCl 1 GM Oral Tablet (Valtrex) Take 1 Tablet by mouth in the morning and 1 Tablet at noon and 1 Tablet before bedtime. As needed for cold sores. busPIRone HCl 5 MG Oral Tablet (Buspar) Take 1 Tablet by mouth in the morning and 1 Tablet before bedtime. (Patient not taking: Reported on 01/12/2024) 60 Tablet 0 Sertraline HCl 50 MG Oral Tablet (Zoloft) 0.5 pill once a day by mouth for 2 weeks then 1 pill daily (Patient not taking: Reported on 01/12/2024) 30 Tablet 5 No current facility-administered medications for this visit. ROS: Review of Systems: See HPI for pertinent positives. All other review of systems is negative. PHYSICAL EXAMINATION BP 129/76 Comment: Patient's auto cuff | Pulse 66 | Resp 16 | Wt 83 kg (183 lb) | BMI 24.82 kg/m | BSA 2.05 m Body mass index is 24.82 kg/m. General: no acute distress and stated age Head: normocephalic, no masses, lesions, tenderness or abnormalities Eyes: conjunctiva are pink and non-injected, sclera clear Neck: supple, no adenopathy, no bruits, normal jugular venous pulse, no hepatojugular reflux Chest: normal shape and normal respiratory effort Lungs: clear to auscultation and percussion Cardiac Exam: - regular rate & rhythm, no murmurs gallops or rubs - normal S1, normal S2 Pulses: 2(+) throughout Abdomen: abdomen soft, non-tender, no abnormal masses and no hepatosplenomegaly Musculoskeletal: no gait disturbance, no joint inflammation, no deforming arthritis Extremities: no edema and no cyanosis Neuro: grossly normal exam Laboratory Data Review: No recent data Impression: 1. Coronary artery disease with chronic angina 2. Previous coronary stent LAD 2008 3. Paroxysmally atrial fibrillation successfully treated with pulmonary vein isolation ablation 4. Parkinson's disease 5. PASHA Plan: The patient is currently clinically stable. He will continue his current medications and follow-up with us in 3 months or earlier if needed. This chart was completed in part utilizing [employer] Speech Voice Recognition Software. Grammatical errors, random word insertions, prounoun errors, and incomplete sentences are an occasional consequence of this system due to software limitations, ambient noise, and hardware issues. Any formal questions or concerns about the content, text, or information contained within the body of this dictation should be directly addressed to the provider for clarification. I spent a total of 40-54 minutes (exact time 42 mins) on the date of service in preparation, delivery, and documentation of the care provided to Steven Shetty excluding any time spent in the performance of separately billed services. Morro Golden DO Cardiology[address] [address] 01/12/2024 documented in this encounter Nursing Notes * Remi Pickens RN - 01/12/2024 11:36 AM EDT Examination Room: room 17 Name: Steven Shetty Date of : (1950). Reason for Visit: for follow up Interim Hospitalization(s): denies Problems/Concerns: denies Chest Pain/SOB: denies [facility] Discussed: NO My [facility] is a way you can talk to your provider online through e-mail. Would you like to sign up? I can activate it for you? ALREADY ACTIVE Patient was instructed to not get up on the exam table until directed and assisted by their provider; patient is to remain seated in the chair/ wheelchair/ exam table for fall prevention and safety reasons. Patient is aware to have assistance to step down off exam table with personnel. Patient voiced full comprehension of instructions. r documented in this encounter Plan of Treatment Upcoming Encounters Date Type Department Care Team (Late st Contact Info) Description 03/21/2024 10:30 AM EDT Office Visit Urology Jamie Whitaker [address] [place] [address] Louie Hernandez Jr., MD [address] [place] [address] 04/03/2024 3:00 PM EDT Office Visit General Internal Medicine [facility] [address] [facility] [address] Dominick Peterson MD [address] [facility] [address] 04/05/2024 8:00 AM EDT Telemedicine Sleep Disorders Ctr [facility] [address] [place] [phone] Leatha Quinn, DO [address] [place] [address] 04/17/2024 3:30 PM EDT Office Visit Cardiology, [facility] [address] [place] [address] Dmitri Chaney, DO [address] [place] [address] 07/09/2024 11:20 AM EDT [facility] [address] [place] [address] Juan Carranza MD [address] [place] [address] 08/31/2024 10:00 AM EST Office Visit Neurology [facility] [address] [place] [address] Shane Jackson DO [address] [place] [address] Health Maintenance Due Date Last Done Comments DTaP,Tdap,and Td Vaccines (1 - Tdap) 11/16/1971 Cologuard 1997 Fecal Occult Blood Test 1997 Sigmoidoscopy 1997 AAA Screening 2017 COVID-19 Vaccine ( - 2022- season) 2023 07/11/2021, 11/27/2020, 11/06/2020 GFR 10/07/2024 10/07/2023, 04/2023, 03/25/2022, Additional history exists Depression Screening 01/10/2025 01/11/2024 Albumin/Creatinine Ratio 02/17/2026 02/17/2023 Colonoscopy 11/25/2026 11/25/2021 [...] Not on filedocumented as of this encounter Visit Diagnoses Diagnosis Coronary artery disease involving koi coronary artery of koi heart without angina pectoris- Primary PAF (paroxysmal atrial fibrillation) (HCC) Atrial fibrillation documented in this encounter Advance Directives Latest Code Status on File Code Status Date Activated Date Inactivated Comments Full Code 06/19/2020 12:08 PM 06/20/2020 12:59 PM Thi s order reflects the patients wishes and were consensually agreed upon. Care Teams Corporate Responsibility Officer Relationship Specialty Start Date End Date Dominick Peterson MD [address] [place], [place] [id number] PCP - General Internal Medicine 06/14/23 documented as of this encounter"
--- OUTSIDE RECORDS SUMMARY | 2024-01-24 10:19 | External Medical Summary | Summary of Care ---
Author Name Unknown Organization [facility] Address [address] [place] [address] Phone [phone] Care Team Providers Care Elevator Conductor Name Role Phone Dominick Peterson MD Primary Care Provider + Reason for Visit * Reason Onset Date Comments Advice 01/10/2024 Encounter Details Date Type Department Care Team (Late st Contact Info) Description 01/10/2024 Telephone Neurology, [place] [address] [place] [address] Services, [facility] [address] [place] [address] Advice Allergies Active Allergy Reactions Criticality Noted Date Comments Acetazolamide High 03/26/2022 Other reaction(s): Tachycardia Amlodipine 06/19/2020 documented as of this encounter (statuses as of 01/10/2024) Medications Medication Sig Dispensed Refills Start Date End Date Status nitroglycerin (NITROSTAT) 0.4 MG SUBL 0 08/03/2019 Active Aspirin 81 MG Tablet Take 1 Tablet by mouth in the morning. 0 Active [place]-3 Fatty Acids (FISH OIL) 1200 MG CPDR [...] 06/09/20 20 Coronary artery disease invo lving [place] coronary artery of [place] heart without angina pectoris 09/21/2019 History of coronary artery stent placement 09/21 PAF (paroxysmal atrial fibrillation) 09/21/2019 Atrial flutter 09/21/2019 HTN, goal below 130/80 09/21/2019 Hyperlipidemia with target LDL less than 100 06/2020 documented as of this encounter (statuses as of 01/10/2024) Resolved Problems Problem Noted Date Diagnosed Date Resolved Date Paroxysmal A-fib 05/02/2020 10/04/2023 Overview: Added automatically from request for surgery [id number] documented as of this encounter (statuses as of 01/10/2024) Immunizations Name Administration Dates Next Due COVID-19 mRNA, LNP-s, No Pre serve, 2-Dose Series (MetaPack) 07/11/2021,11/27/2020,11/06/2020 Pneumococcal Conjugate Vacc, 13 Valent (Prevnar) [...] encounter Miscellaneous Notes * Telephone Encounter - Huma Garica OSA - 01/10/2024 1:48 PM EDT Requested Information from caller: Who is calling facility name: [facility] speech Provider patient is established with: Sun What is the concern or issue they are having: reports they need visit notes to go with referral. How long has the issue been going on: n/a Any additional details to add: no Pts phone number for nurse to call back: n/a If forms need to be faxed- Please provide fax number: [phone] * Telephone Encounter - Monica Mercedes OSA - 01/10/2024 10:35 AM EDT Speech pathology referral faxed to [facility] [phone] * Telephone Encounter - Mikal Banegas OSA [...] phone number for nurse to call back: [phone] If forms need to be faxed- Please provide fax number: [phone] documented in this encounter Plan of Treatment Upcoming Encounters Date Type Department Care Team (Late st Contact Info) Description 01/12/2024 11:30 AM EDT Office Visit Cardiology, [facility] [address] [place] [address] Morro Golden DO [address] [place] [address] 03/21/2024 10:30 AM EDT Office Visit Urology Jamie Whitaker [address] [place] [address] Louie Hernandez Jr., MD [address] [place] [address] 04/03/2024 3:00 PM EDT Office Visit General Internal Medicine [facility] [address] [facility] [place] [address] Dominick Peterson MD [address] [facility] [place] [address] 04/05/2024 8:00 AM EDT Telemedicine Sleep Disorders Ctr [facility] [address] [place] [phone] Leatha Quinn DO [address] [place] [address] 07/09/2024 11:20 AM EDT Telemedicine Neurology, [address] [place] [address] Juan Carranza MD [address], [place] [id number] 08/31/2024 10:00 AM EST Office Visit Neurology [facility] Wendy [place] [address] [place] [address] Shane Jackson DO [address], [place] [phone] Health Maintenance Due Date Last Done Comments DTaP,Tdap,and Td Vaccines (1 - Tdap) 11/16/1971 Cologuard 1997 Fecal Occult Blood Test 1997 Sigmoidoscopy 1997 AAA Screening 2017 Depression Screening 09/03/2022 09/03/2021 COVID-19 Vaccine ( season) 2023 07/11/2021, 11/27/2020, 11/06/2020 GFR 10/07/2024 10/07/2023, 06/0 04/2023, 03/25/2022, Additional history exists Albumin/Creatinine Ratio 02/17/2026 [...] and were consensually agreed upon. Care Teams Elevator Conductor Relationship Specialty Start Date End Date Dominick Peterson MD [address] [facility] [place] [address] PCP - General Internal Medicine 06/14/23 documented as of this encounter
--- OUTSIDE RECORDS SUMMARY | 2024-01-24 10:19 | External Medical Summary | Summary of Care ---
Author Name Unknown Organization [facility] Address [address] [place] [address] Phone [phone] Care Team Providers Care Shipper Name Role Phone Dominick Peterson MD Primary Care Provider + Encounter Details Date Type Department Care Team (Late st Contact Info) Description 01/18/2024 1:00 PM EDT Scheduled Telephone Care Coordination and Integration [address], [place] [id number] [facility] Social Work Associate [address], [place] [phone] Allergies Active Allergy Reactions Criticality Noted Date Comments Acetazolamide High 03/26/2022 Other reaction(s): Tachycardia Amlodipine 06/19/2020 documented as of this encounter (statuses as of 01/18/2024) Medications Medication Sig Dispensed Refills Start Date End Date Status Aspirin 81 MG Tablet Take 1 Tablet by mouth in the morning. 0 Active [place]-3 Fatty Acids (FISH OIL) 1200 MG CPDR [...] Additional Information Patient not taking.Reported on 01/12/2024 Nitroglycerin 0.4 MG Sublingual Tablet Sublingual (Nitrostat) Place 1 Tablet under the tongue every 5 minutes as needed for Pain, Chest. 25 Tablet 3 01/13/2024 Active documented as of this encounter (statuses as of 01/18/2024) Active Problems Problem Noted Date Diagnosed Date Parkinson's disease 02/16/2023 S/P ablation of atrial fibrillation 06/19/2020 PVC (premature ventricular contraction) 06/09/20 Coronary artery disease invo lving [place] coronary artery of [place] heart without angina pectoris 09/21/2019 History of coronary artery stent placement 09/21 PAF (paroxysmal atrial fibrillation) 09/21/2019 Atrial flutter 09/21/2019 HTN, goal below 130/80 09/21/2019 Hyperlipidemia with target LDL less than 100 06/2020 documented as of this encounter (statuses as of 01/18/2024) Resolved Problems Problem Noted Date Diagnosed Date Resolved Date Paroxysmal A-fib 05/02/2020 10/04/2023 Overview: Added automatically from request for surgery [id number] documented as of this encounter (statuses as of 01/18/2024) Immunizations Name Administration Dates Next Due COVID-19 mRNA, LNP-s, No Pre serve, 2-Dose Series ([employer]) 07/11/2021,11/27/2020,11/06/2020 Pneumococcal Conjugate Vacc, 13 Valent (Prevnar) [...] as of this encounter Progress Notes * [facility] Social Work Associate - 01/18/2024 1:19 PM EDT Telemedicine visit: No Community Health Social Work Associate (LILIYA) documentation: CHW received return phone call from patient at thistime. Patient reports to having a few episodes of chest pain that he has been managing with Nitroglycerin. Patient reports this to have happened 3-4 times and he is taking the Nitroglycerin as prescribed. Patient describes the chest pain as a low grade angina and not like a heart attack. Patient reports that the Cardiology appointment on 01/12/24 went well and he reports that they told him to expect to have chest pain and to treat it with the Nitroglycerin and "basically accept" that it is going to happen. Patient reports to be still walking for exercise and reports it to be the same as always, with no changes. Patient denies any current changes or concerns. Patient agreeable to follow up phone call in 1 week. Dilan Stewart Community Health Worker Lead [facility] [place] [phone] * [facility] Social Work Associate - 01/18/2024 1:04 PM EDT Telemedicine visit: No Community Health Social Work Associate (LILIYA) documentation: CHW attempted follow up phone call for RNCM and reached the patient's voicemail. There was a message from the patient on the voicemail, however it sounded like the patient did not hang up after recording the message and there was no indicator to be able to leave a message and the call ended. Dilan Stewart Community Health Worker Lead [facility] [place] [phone] Electronically signed by Abram Stewart [facility] Social Work Associate at 01/18/2024 1:07 PM EDT documented in this encounter Plan of Treatment Upcoming Encounters Date Type Department Care Team (Late st Contact Info) Description 03/21/2024 10:30 AM EDT Office Visit Urology Jamie Whitaker [address] [place] [address] Louie Hernandez Jr., MD [address] [place] [address] 04/03/2024 3:00 PM EDT Office Visit General Internal Medicine [facility] [address] [place] [address] Dominick Peterson MD [address] [place] [address] 04/05/2024 8:00 AM EDT Telemedicine Sleep Disorders [facility] [address] [facility] [place] [phone] Leatha Quinn, DO [address] [place] [address] 04/17/2024 3:30 PM EDT Office Visit Cardiology, [facility] [address] [place] [address] Dmitri Chaney, DO [address] [place] [address] 07/09/2024 11:20 AM EDT Telemedicine Neurology, [place] [address] [place] [address] Juan Carranza MD [address] [place] [address] 08/31/2024 10:00 AM EST Office Visit Neurology [facility] [place] [address] [place] [address] Shane Jackson DO [address] [place] [address] Health Maintenance Due Date Last [...] and were consensually agreed upon. Care Teams Shipper Relationship Specialty Start Date End Date Dominick Peterson MD [address] [place] [address] PCP - General Internal Medicine 06/14/23 documented as of this encounter
--- OUTSIDE RECORDS SUMMARY | 2024-01-24 10:19 | External Medical Summary | Summary of Care ---
Author Name Unknown Organization [facility] Address [address] [place] [address] Phone [phone] Care Team Providers Care Round Corner Cutter Operator Name Role Phone Dominick Peterson MD Primary Care Provider + Encounter Details Date Type Department Care Team (Late st Contact Info) Description 01/18/2024 1:00 PM EDT Scheduled Telephone Care Coordination and Integration [address], [place] [phone] Abram Stewart [facility] Health Sales And Leasing Consultant [address] [place], [place] [phone] Allergies Active Allergy Reactions Criticality Noted Date Comments Acetazolamide High 03/26/2022 Other reaction(s): Tachycardia Amlodipine 06/19/2020 documented as of this encounter (statuses as of 01/18/2024) Medications Medication Sig Dispensed Refills Start Date End Date Status Aspirin 81 MG Tablet Take 1 Tablet by mouth in the morning. 0 Active [place]-3 Fatty Acids (FISH OIL) 1200 MG CPDR [...] contraction) 06/09/20 Coronary artery disease invo lving [place] coronary artery of [place] heart without angina pectoris 09/21/2019 History of coronary artery stent placement 09/21 PAF (paroxysmal atrial fibrillation) 09/21/2019 Atrial flutter 09/21/2019 HTN, goal below 130/80 09/21/2019 Hyperlipidemia with target LDL less than 100 06/2020 documented as of this encounter (statuses as of 01/18/2024) Resolved Problems Problem Noted Date Diagnosed Date Resolved Date Paroxysmal A-fib 05/02/2020 10/04/2023 Overview: Added automatically from request for surgery [id number] documented as of this encounter (statuses as of 01/18/2024) Immunizations Name Administration Dates Next Due COVID-19 mRNA, LNP-s, No Pre serve, 2-Dose Series ([employer]) 07/11/2021,11/27/2020,11/06/2020 Pneumococcal Conjugate Vacc, 13 Valent (Prevnar) [...] Progress Notes * [facility] Sales And Leasing Consultant - 01/18/2024 1:04 PM EDT Telemedicine visit: No Community Health Sales And Leasing Consultant (LILIYA) documentation: CHW attempted follow up phone call for RNCM and reached the patient's voicemail. There was a message from the patient on the voicemail, however it sounded like the patient did not hang up after recording the message and there was no indicator to be able to leave a message and the call ended. Dilan Stewart Community Health Worker Lead [facility] [place] [phone] documented in this encounter Plan of Treatment Upcoming Encounters Date Type Department Care Team (Late st Contact Info) Description 03/21/2024 10:30 AM EDT Office Visit Urology Jamie Whitaker [address] [place] [address] Mary Fields, Louie Aquino MD [address] [place] [address] 04/03/2024 3:00 PM EDT Office Visit General Internal Medicine [facility] [address] [facility] [place] [address] Dominick Peterson MD [address] [facility] [place] [address] 04/05/2024 8:00 AM EDT Telemedicine Sleep Disorders [facility] [address] [place] [phone] Leatha Quinn, DO [address] [place] [address] 04/17/2024 3:30 PM EDT Office Visit Cardiology, [facility] [address] [facility] [place] [address] Dmitri Chaney, DO [address] [place] [address] 07/09/2024 11:20 AM EDT Telemedicine Neurology, [place] [address] [place] [address] Juan Carranza MD [address] [place] [address] 08/31/2024 10:00 AM EST Office Visit Neurology [facility] [address] [facility] [place] [address] Shane Jackson, DO [address] [place] [address] Health Maintenance Due Date Last Done Comments DTaP,Tdap,and Td Vaccines (1 - Tdap) 11/16/1971 Cologuard 1997 Fecal Occult Blood Test 1997 Sigmoidoscopy 1997 AAA Screening 2017 COVID-19 Vaccine (2022- season) 2023 07/11/2021, 11/27/2020, 11/06/2020 GFR 10/07/2024 10/07/2023, 06/04/2023, 03/25/2022, Additional history exists Depression Screening 01/10/2025 [...] and were consensually agreed upon. Care Teams Round Corner Cutter Operator Relationship Specialty Start Date End Date Dominick Peterson MD [address] [place] [address] PCP - General Internal Medicine 06/14/23 documented as of this encounter
--- OUTSIDE RECORDS SUMMARY | 2024-01-24 10:19 | External Medical Summary | Summary of Care ---
Author Name Unknown Organization [facility] Address [address] [place] [address] Phone [phone] Care Team Providers Care Wire Weaving Loom Setter Name Role Phone Dominick Peterson MD Primary Care Provider + Reason for Visit * Reason Onset Date Comments Hospital Follow-Up Hospital disc harge follow up from [facility] 01/02/2024 - 01/04/2024. Pt states he has been doing well since discharge, took a nitro this morning because his chest felt tight - not exactly chest pain. Would like to discuss how to know when to take the nitro Hospital Follow-Up 01/09/2024 Encounter Details Date Type Department Care Team (Late st Contact Info) Description 01/09/2024 11:00 AM EDT Office Visit General Internal Medicine [facility] [place] [address] [facility] [place] [address] [facility] [address] [facility] [address] Hospital discharge follow-up*; Coronary artery disease of [place] artery of [place] heart with stable angina pectoris (HCC); Anxiety; HTN, goal below 130/80 Allergies Active Allergy Reactions Criticality Noted Date Comments Acetazolamide High 03/26/2022 Other reaction(s): Tachycardia Amlodipine 06/19/2020 documented as of this encounter (statuses as of 01/09/2024) Medications Medication Sig Dispensed Refills Start Date End Date Status nitroglycerin (NITROSTAT) 0.4 MG SUBL 0 08/03/2019 Active Aspirin 81 MG Tablet Take 1 Tablet by mouth in the morning. 0 Active [place]-3 Fatty Acids (FISH OIL) 1200 MG CPDR [...] as of this encounter (statuses as of 01/09/2024) Active Problems Problem Noted Date Diagnosed Date Parkinson's disease 02/16/2023 S/P ablation of atrial fibrillation 06/19/2020 PVC (premature ventricular contraction) 06/09/20 20 Coronary artery disease invo lving [place] coronary artery of [place] heart without angina pectoris 09/21/2019 History of coronary artery stent placement 09/21 PAF (paroxysmal atrial fibrillation) 09/21/2019 Atrial flutter 09/21/2019 HTN, goal below 130/80 09/21/2019 Hyperlipidemia with target LDL less than 100 06/2020 documented as of this encounter (statuses as of 01/09/2024) Resolved Problems Problem Noted Date Diagnosed Date Resolved Date Paroxysmal A-fib 05/02/2020 10/04/2023 Overview: Added automatically from request for surgery [id number] documented as of this encounter (statuses as of 01/09/2024) Immunizations Name Administration Dates Next Due COVID-19 mRNA, LNP-s, No Pre serve, 2-Dose Series ([employer]) 07/11/2021,11/27/2020,11/06/2020 Pneumococcal Conjugate Vacc, 13 Valent (Prevnar) 07/18/2018 Pneumococcal Polysaccharide PPV23 (Pneumovax) 07/20/2019 Seasonal Influenza Virus Vac cine, Unspecified Formulation 07/20/2019,05/29/2018 Seasonal Influenza, Trivalen t, High Dose, No Preserve, IM 07/20/2019 Zoster Vaccine Recombinant (Shingrix) 01/28/2021 ,09/02/2020 documented as of this encounter Social History Tobacco Use Types Packs/Day Years Used Date Smoking Tobacco: Former Cigarettes Smokeless Tobacco: Current Chew Tobacco Cessation:Ready to Q uit: Not Asked; Counseling Given: Not Answered Alcohol Use Standard Drinks/Week Comments Yes 0 [...] Sign Reading Time Taken Comments Blood Pressure 108/58 01/09/2024 10:58 AM EDT Pulse 77 01/09/2024 10:58 AM EDT Temperature 35.1 C (95.2 F) 01/09/2024 1 0:58 AM EDT Respiratory Rate - - Oxygen Saturation 94% 01/09/2024 10: 58 AM EDT Inhaled Oxygen Concentration - - Weight 83.3 kg (183 lb 11.2 oz) 024 10:58 AM EDT Height 182.9 cm (6') 01/09/2024 10:58 AM EDT Body Mass Index 24.91 01/09/2024 10:58 AM EDT documented in this [...] as of this encounter Progress Notes * Dominick Peterson MD - 01/09/2024 11:28 AM EDT Chief Complaint Patient presents with Hospital Follow-Up Hospital discharge follow up from [facility] 01/02/2024 - 01/04/2024. Pt states he has been doing well since discharge, took a nitro this morning because his chest felt tight - not exactly chest pain. Would like to discuss how to know when to take the nitro Hospital Follow-Up SUBJECTIVE: Steven Shetty is a 73 year old male with PMH as below who presents for hospital follow up. Admitted 01/01-01/04/24 for chest pain. Had labs, troponin negative, saw cardiology, recommended cath, multivessel disease, but nothing amenable to intervention Consideration was made to add Ranexa or nitrate, but declined given side effects in the past. He was sent home. He notes had 2-3 episode of chest tightness since home, last one this am, was during stress when faxing papers, resolved with 1 SL NTG. He notes walked 2 times over weekend w/o cp, sob, argueta or pressure. Has follow up cardiology this week. Does admit to anxiety, stress at home. No cough, sob ,argueta. Mood is ok Patient Active Problem List Diagnosis Code Coronary artery disease involving [place] coronary artery of [place] heart without angina pectoris I25.10 History of coronary artery stent placement Z95.5 PAF (paroxysmal atrial fibrillation) ([facility]) I48.0 Atrial flutter ([facility]) I48.92 HTN, goal below 130/80 I10 Hyperlipidemia with target LDL less than 100 E78.5 PVC (premature ventricular contraction) I49.3 S/P ablation of atrial fibrillation Z98.890, Z86.79 Parkinson's disease ([facility]) G20.A1 Current Outpatient Medications Medication Sig Dispense Refill nitroglycerin (NITROSTAT) 0.4 MG SUBL Aspirin 81 MG Tablet Take 1 Tablet by mouth in the morning. [place]-3 Fatty Acids (FISH OIL) 1200 MG CPDR [...] Powder (Psyllium) Take by mouth daily . valACYclovir HCl 1 GM Oral Tablet (Valtrex) Take 1 Tablet by mouth in the morning and 1 Tablet at noon and 1 Tablet before bedtime. As needed for cold sores. Eliquis 5 MG Oral Tablet Take 1 Tablet by mouth in the morning and 1 Tablet before bedtime. 180 Tablet 3 Lisinopril 10 MG Oral Tablet (Prinivil) Take 1 Tablet by mouth in the morning. 90 Tablet 3 Atorvastatin Calcium 80 MG Oral Tablet (Lipitor) Take 1 Tablet by mouth at bedtime. 90 Tablet 3 Melatonin 5 MG Oral Tablet Disintegrating Take 1 Tablet by mouth every night at bedtime. Polyethylene [...] MOUTH EVERYDAY AT BEDTIME 90 Tablet 1 busPIRone HCl 5 MG Oral Tablet (Buspar) Take 1 Tablet by mouth in the morning and 1 Tablet before bedtime. 60 Tablet 0 Sertraline HCl 50 MG Oral Tablet (Zoloft) 0.5 pill once a day by mouth for 2 weeks then 1 pill daily 30 Tablet 5 No current facility-administered medications for this visit. Review of patient's allergies indicates: Allergen Reactions Acetazolamide Other reaction(s): Tachycardia Amlodipine Health Maintenance Due Topic Date Due DTaP,Tdap,and Td Vaccines (1 - Tdap) Never done AAA Screening Never done Depression Screening 09/03/2022 COVID-19 Vaccine ( season) 2023 ROS: CONSTITUTIONAL: No change in weight, No weakness, and No fevers, sweats, or chills EYE: No recent significant change in vision, No eye pain, redness, discharge, and No diplopia EARS: No ear pain, No drainage, No tinnitus or vertigo, and No recent change in hearing PULMONARY: No cough, sputum, or hemoptysis, No wheezing, No rales, No shortness of breath, and No recent change in breathing CARDIOVASCULAR: No shortness of breath, No dyspnea on exertion, No orthopnea, No paroxysmal nocturnal dyspnea, No edema, No palpitations, and No syncope GASTROINTESTINAL: No abdominal pain, No change in bowel habits, No significant heartburn, No significant change in appetite, No nausea, vomiting, diarrhea, or constipation, No hematemesis, No blood in stools or black tarry stools, No abdominal bloating or early satiety, and No dysphagia ALL OTHER SYSTEMS NEGATIVE I reviewed social, PMH, PSH, and family history and updated where needed. 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 Tobacco Use Smoking status: Former Types: Cigarettes Smokeless tobacco: Current Types: Chew Vaping Use Vaping Use: Never used Substance and Sexual Activity Alcohol use: Yes Comment: several times a week Drug use: Never Sexual activity: Not on file Other Topics Concern Not on file Social History Narrative Not on file Social Determinants of Health Financial Resource Strain: Not on file Food Insecurity: No Food Insecurity (11/22/2023) Hunger Vital Sign Worried About Running Out of Food in the Last Year: Never true Ran Out of Food in the Last Year: Never true Transportation Needs: Not on file Physical Activity: Not on file Stress: Not on file Social Connections: Not on file Intimate Partner Violence: Not on file Housing Stability: Not on file Past Medical History: Diagnosis Date Arachnoid cyst s/p fenestration (2009) CAD (coronary artery disease) Cerebral ventriculomegaly Cognitive decline Hyperlipidemia Hypertension Low TSH level Neurologic gait dysfunction Parkinson's disease (HCC) 02/16/2023 Paroxysmal A-fib (HCC) s/p ablation Urinary urgency Past Surgical History: Procedure Laterality Date ELECTROPHYSIOLOGY EVAL, ATRIAL FIB, PULMONARY VEIN ISOL Bilateral 06/19/2020 PVI RADIOFREQUENCY CATHETER ABLATION performed by Beyt Price IV, MD at [facility] No family history on file. OBJECTIVE: PHYSICAL EXAM: BP 108/58 | Pulse 77 | Temp 35.1 C (95.2 F) (Tympanic) | Ht 1.829 m (6') | Wt 83.3 kg (183 lb 11.2 oz) | SpO2 94% | BMI 24.91 kg/m | BSA 2.06 m General: alert, healthy, and no distress Head: Normocephalic, No masses, lesions, or abnormalities Eye Exam: conjunctiva are pink and non-injected, sclera clear Heart: regular rate & rhythm, no murmur, no gallops, PMI non-displaced, S-1 normal, and S-2 normal Lungs: normal respiratory rate and rhythm, lungs clear to auscultation Psych: normal affect, no flight of ideas or tangential thought, good eye contact, no pressured speech D/C Summary: Intermittent since last EXTRUSION DIE CORRECTOR Took 8-10 Nitro since last EXTRUSION DIE CORRECTOR Admitting troponin x 4 were negative. EKG with no acute ST or T changes. Echo with EF of 65 to 70%, grade 1 diastolic dysfunction, LV wall motion is normal. Currently CP Free Status post heart cath 01/02, multivessel coronary disease. Cardiology on board, patient to follow-up with cardiology upon discharge. Continue prior to arrival home cardiac medications. Patient chest pain-free and is hemodynamically stable and would like to go home. CAD: Chronic Status post PCI LAD x 2 ZIYAD in 2008 Received ASA 324 mg in ED Takes baby aspirin;continue A-fib: On anticoagulation therapy: Chronic Status post ablation in [address] Golden cardiology Takes Eliquis; continue when able. Parkinson's disease: Chronic Follows with neurology Dr. Jackson at [place] Takes Sinemet ER/IR combination;continue Last appointment 12/23/2023 reports worsening difficulty with multitasking and concentration. Rivastigmine was recommended for home trial for snoring and insomnia and concentration issues.; this has not been started yet. 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 HTN: Chronic Takes lisinopril;continue HLD: Chronic Last panel 10/07/2023 TG 43, HDL 61, LDL 72 Repeat fasting lipid panel in a.m. On high-dose atorvastatin;continue Disposition: PCP: Dr. Peterson CODE STATUS: Full code VTE prophylaxis: SCDs Patient being discharged home with following instruction at the point of discharge: Follow-up with your primary care physician within a week time and likely you will need labs CBC/CMP/magnesium/phosphorus. Follow-up with your cardiology in 2 to 4 weeks time of discharge. For concerns of anxiety, as discussed at the bedside you do not want any medications to be started in the hospital. Continue to closely follow-up with your PCP for management of anxiety. Take your medications as prescribed. 01/04/24 cardiology: Ongoing medical therapy for coronary heart disease recommended. His baseline heart rate is in the 50s without beta-octavio and therefore I do not feel he would be a candidate for this. Patient concerns of possible headache and dizziness side effect with nitroglycerin patch, and therefore will hold of on this. Pt did not tolerate Ranexa in the past. Discharge on prior medication, ASA 81 mg daily, lisinopril 10 mg daily, Eliquis 5 mg BID (for h/o PAF), and atorvastatin 80 mg daily as wall as SL nitroglycerin. ASSESSMENT: Z09 Hospital discharge follow-up (primary encounter diagnosis) I25.118 Coronary artery disease of [place] artery of [place] heart with stable angina pectoris (HCC) F41.9 Anxiety I10 HTN, goal below 130/80 PLAN: Hospital discharge follow-up (Primary) - DISCH MED RECON CUR MED LIS As below Coronary artery disease of [place] artery of [place] heart with stable angina pectoris (HCC) Appreciate cardiology aid, Has multivessel disease, but no intervention Would continue lisinopril, asa, statin and ntg, discussed when to use latter Keep cardiology follow up Anxiety - busPIRone HCl 5 MG Oral Tablet (Buspar); Take 1 Tablet by mouth in the morning and 1 Tablet before bedtime. - Sertraline HCl 50 MG Oral Tablet (Zoloft); 0.5 pill once a day by mouth for 2 weeks then 1 pill daily Could be contributing to symptoms, discussed starting med, he agrees. The potential side effects ofthis medication have been discussed with the patient. Call if any significant problems with these are experienced. HTN, goal below 130/80 Mentions occasional 130 readings at home which makes him anxious, will bring cuff into cardiology to make sure reading ok Follow Up: Return in about 3 months (around 04/09/2024), or if symptoms worsen or fail to improve and as scheduled.. Dominick Peterson MD documented in this encounter Nursing Notes * Molly Rizvi, SUREKHA ASSIST - 01/09/2024 11:03 AM EDT Chief Complaint Patient presents with Hospital Follow-Up Hospital discharge follow up from [facility] 01/02/2024 - 01/04/2024. Pt states he has been doing well since discharge, took a nitro this morning because his chest felt tight - not exactly chest pain. Would like to discuss how to know when to take the nitro documented in this encounter Plan of Treatment Upcoming Encounters Date Type Department Care Team (Late st Contact Info) Description 01/12/2024 11:30 AM EDT Office Visit Cardiology, [facility] [address] [place] [address] [address] [place], [address] [place] [address] 03/21/2024 10:30 AM EDT Office Visit Urology Jamie Whitaker [address] [place] [address] Louie Hernandez Jr., MD [address] [place] [address] 04/03/2024 3:00 PM EDT Office Visit General Internal Medicine [facility] [address] [facility] [place] [address] Dominick Peterson MD [address] [place] [address] 04/05/2024 8:00 AM EDT Telemedicine Sleep Disorders Ctr [facility] [address] [place] [address] [id number] Leatha Quinn, [address] [place] [address] 07/09/2024 11:20 AM EDT Telemedicine Neurology, [address] [place] [address] Juan Carranza MD [address] [place] [address] 08/31/2024 10:00 AM EST Office Visit Neurology Jian Nguyen [place] [address] [place] [address] Shane Jackson DO [address] [place] [address] Health Maintenance Due Date Last [...] as of this encounter Visit Diagnoses Diagnosis Hospital discharge follow-up- Primary Other follow-up examination Coronary artery disease of [place] artery of [place] heart with stable angina pectoris (HCC) Anxiety Anxiety state, unspecified HTN, goal below 130/80 Unspecified essential hypertension documented in this encounter Advance Directives Latest Code Status on File Code Status Date Activated Date Inactivated Comments Full Code 06/19/2020 12:08 PM 06/20/2020 12:59 PM Thi s order reflects the patients wishes and were consensually agreed upon. Care Teams Wire Weaving Loom Setter Relationship Specialty Start Date End Date Dominick Peterson MD [address] [place] [address] PCP - General Internal Medicine 06/14/23 documented as of this encounter"
--- OUTSIDE RECORDS SUMMARY | 2024-01-24 10:19 | External Medical Summary | Summary of Care ---
Author Name Unknown Organization [facility] Address [address] [place] [address] Phone [phone] Care Team Providers Care Pharmacist'S Aide Name Role Phone Dominick Peterson MD Primary Care Provider + Reason for Referral * Evaluate & Treat - Unlimited Visits (Within 10 days (routine)) - Authorized Specialty Diagnoses / Procedures Referred By Margie perez Referred To Contact Physical Therapy / Physical Medicine And Rehab Diagnoses Parkinson's disease with dyskinesia and fluctuating manifestations (HCC) Unsteady gait Pastora Bai CRNP [address] [place] [address] Referral ID Status Reason Start Date Expiration Date Visits Requested Visits Authorized [id number] Authorized Specialty Services Required 12/26/[phone] Question Answer Referral Priority Within 10 days (routine) Where should this appointment be scheduled? [facility] Reason for Visit * Reason Onset Date Comments Order Request 12/22/2023 Requesting Up da marylou Physical Therapy order Encounter Details Date Type Department Care Team (Late st Contact Info) Description 12/22/2023 Telephone Access Center, [facility] [address] [facility] *DO NOT REMOVE THIS DEPARTMENT* [place] [address] Services, Scheduling [address] [place] [address] Order Request (Requesting Up dated Physica... Allergies Active Allergy Reactions Criticality Noted Date Comments Acetazolamide High 03/26/2022 Other reaction(s): Tachycardia Amlodipine 06/19/2020 documented as of this encounter (statuses as of 01/09/2024) Medications Medication Sig Dispensed Refills Start Date End Date Status nitroglycerin (NITROSTAT) 0.4 MG SUBL 0 9 Active Aspirin 81 MG Tablet Take 1 Tablet by mouth in the morning. 0 Active [place]-3 Fatty Acids (FISH OIL) 1200 MG CPDR [...] bedtime. As needed for cold sores. 0 3 Active Eliquis 5 MG Oral Tablet Take 1 Tablet by mouth in the morning and 1 Tablet before bedtime. 180 Tablet 3 4 Active Lisinopril 10 MG Oral Tablet (Prinivil)Indicatio ns:PAF (paroxysmal atrial fibrillation) (HCC) Take 1 Tablet by mouth in the morning. 90 Tablet 3 4 Active Atorvastatin Calcium 80 MG Oral Tablet (Lipitor)Indication s:Hyperlipidemia with target LDL less than 100 Take 1 Tablet by mouth at bedtime. 90 Tablet 3 4 Active Melatonin 5 MG Oral Tablet DisintegratingIndic ations:Rapid Eye Movement Sleep Behavior Disorder Take 1 Tablet by mouth every night at bedtime. 0 Active Coenzyme Q10 (COQ10) 100 MG CAPS Take 1 Cap by mouth daily. 0 01/02/20 24 Discontinued(Med ication List Clean Up) Carbidopa-Levodopa ER 50-200 MG Oral Tablet Extended Release (Sinemet CR)Indications:Park inson's disease without dyskinesia or fluctuating manifestations (HCC) Take 1 Tablet by mouth every night at bedtime. 90 Tablet 1 3 12/27/19 24 Discontinued Carbidopa-Levodopa 25-100 MG Oral Tablet (Sinemet)Indication s:Parkinson's disease without dyskinesia or fluctuating manifestations (HCC) Take 1 Tablet by mouth in the morning and 1 Tablet at noon and 1 Tablet before bedtime. 270 Tablet 1 3 12/27/19 24 Discontinued documented as of this encounter (statuses as of 01/09/2024) Active Problems Problem Noted Date Diagnosed Date Parkinson's disease 02/16/2023 S/P ablation of atrial fibrillation 06/19/2020 PVC (premature ventricular contraction) 06/09/20 20 Coronary artery disease invo lving [place] coronary artery of [place] heart without angina pectoris 09/21/2019 History of coronary artery stent placement 09/21 PAF (paroxysmal atrial fibrillation) 09/21/2019 Atrial flutter 09/21/2019 HTN, goal below 130/80 09/21/2019 Hyperlipidemia with target LDL less than 100 06/2020 documented as of this encounter (statuses as of 01/09/2024) Resolved Problems Problem Noted Date Diagnosed Date Resolved Date Paroxysmal A-fib 05/02/2020 10/04/2023 Overview: Added automatically from request for surgery [id number] documented as of this encounter (statuses as of 01/09/2024) Immunizations Name Administration Dates Next Due COVID-19 mRNA, LNP-s, No Pre serve, 2-Dose Series ([employer]) 07/11/2021,11/27/2020,11/06/2020 Pneumococcal Conjugate Vacc, 13 Valent (Prevnar) 07/18/2018 Pneumococcal Polysaccharide PPV23 (Pneumovax) 07/20/2019 Seasonal Influenza Virus Vac cine, Unspecified Formulation 07/20/2019,05/29/2018 Seasonal Influenza, Trivalen t, High Dose, No Preserve, IM 07/20/2019 Zoster Vaccine Recombinant (Shingrix) 01/28/2021 ,09/02/2020 documented as of this encounter Social History Tobacco Use Types Packs/Day Years Used Date Smoking Tobacco: Never Smokeless Tobacco: Current Chew Alcohol Use Standard [...] Miscellaneous Notes * Telephone Encounter - Huma Garcia OSA - 01/09/2024 2:03 PM EDT Requested Information from caller: Who is calling [facility] Provider patient is established with: Renetta What is the concern or issue they are having: PT starts tomorrow and they did not receive referral please resend How long has the issue been going on: 12/21 Any additional details to add: no Pts phone number for nurse to call back: [phone] If forms need to be faxed- Please provide fax number: [phone] * Telephone Encounter - Essence Campbell OSA - 12/27/2023 8:48 AM EDT Printed and faxed as requested * Telephone Encounter - Pastora Bai CRNP - 12/26/2023 4:41 PM EDT New PT referral order placed. * Telephone Encounter - Vin Robles OSA - 12/22/2023 4:04 PM EDT Neuroscience Phone Call Form- Clinic has 24-48 hours to respond to caller If caller is calling back before that timeframe- There is no need to send another message to the pool, update current TE [facility] Neurology Pool- All messages go through the [facility] Neuro [place]- [id number] Neurology Pool Numbers- [place] and [place] patients - follow normal process Ops req [facility] Neurology ([place])- [id number] Ops req [place] Neurology ([place]- [facility] and [facility] Only)- [id number] Neurosurgery Pool Numbers- [facility] patients- follow normal process Ops req Neurosurgery [facility] ([place])- [id number] Ops req Neurosurgery [facility] ([place] Only) [id number] Requested Information from caller: Who is calling facility name[facility] Provider patient is established with: Dr Jackson What is the concern or issue they are having: Requesting an up dated physical therapy referral for pt. How long has the issue been going on: n/a Any additional details to add: no Pts phone number for nurse to call back: [phone] If forms need to be faxed- Please provide fax number: [phone] Please make sure you verify pharmacy for anything medication related. Form to be used for established patients only (not new patients) documented in this encounter Plan of Treatment Upcoming Encounters Date Type Department Care Team (Late st Contact Info) Description 01/12/2024 11:30 AM EDT Office Visit Cardiology, [facility] [address] [facility] [place] [address] Morro Golden, DO [address] [facility] [place] [address] 03/21/2024 10:30 AM EDT Office Visit Urology [place] Whitaker [address] [place] [address] Louie Hernandez Jr., MD [address] [place] [address] 04/03/2024 3:00 PM EDT Office Visit General Internal Medicine [facility] [address] [facility] [place] [address] Dominick Peterson MD [address] [facility] [place] [address] 04/05/2024 8:00 AM EDT Telemedicine Sleep Disorders Ctr [facility] 132 [facility] [place] [phone] Leatha Quinn, 132 [facility] [place] [address] 07/09/2024 11:20 AM EDT Telemedicine Neurology, [place] [address] [place] [address] Juan Carranza MD [address] [place] [address] 08/31/2024 10:00 AM EST Office Visit Neurology [facility] [address] [facility] [place] [address] Shane Jackson, DO [address] [place] [address] Scheduled Referrals Name Type Priority Associated Diagnoses Orde r Schedule PHYSICAL THERAPY REFERRAL OP Referral Within 10 days (routine) Parkinson's disease with dyskinesia and fluctuating manifestations (HCC) Unsteady gait Ordered: 12/26/2023 Health Maintenance Due Date Last Done Comments DTaP,Tdap,and Td Vaccines (1 - Tdap) 11/16/1971 Cologuard 1997 Fecal Occult Blood Test 1997 Sigmoidoscopy 1997 AAA Screening 2017 Depression Screening 09/03/2022 09/03/2021 COVID-19 Vaccine ( season) 2023 07/11/2021, 11/27/2020, 11/06/2020 GFR 10/07/2024 10/07/2023, 0604/2023, 03/25/2022, Additional history exists Albumin/Creatinine Ratio 02/17/2026 [...] as of this encounter Visit Diagnoses Diagnosis Parkinson's disease with dyskinesia and fluctuating manifestations (HCC)- Primary Unsteady gait Abnormality of gait documented in this encounter Advance Directives Latest Code Status on File Code Status Date Activated Date Inactivated Comments Full Code 06/19/2020 12:08 PM 06/20/2020 12:59 PM Thi s order reflects the patients wishes and were consensually agreed upon. Care Teams Pharmacist'S Aide Relationship Specialty Start Date End Date Dominick Peterson MD [address] [place] [address] PCP - General Internal Medicine 06/14/23 documented as of this encounter
--- OUTSIDE RECORDS SUMMARY | 2024-01-24 10:19 | External Medical Summary | Summary of Care ---
Author Name Unknown Organization [facility] Address [address] [place] [address] Phone [phone] Care Team Providers Care Advertising Executive Name Role Phone Dominick Peterson MD Primary Care Provider + Reason for Visit * Reason Onset Date Comments Advice 01/10/2024 Encounter Details Date Type Department Care Team (Late st Contact Info) Description 01/10/2024 Telephone Neurology, [place] [address] [place] [address] Services, [facility] [address] [place] [address] Advice Allergies Active Allergy Reactions Criticality Noted Date Comments Acetazolamide High 03/26/2022 Other reaction(s): Tachycardia Amlodipine 06/19/2020 documented as of this encounter (statuses as of 01/10/2024) Medications Medication Sig Dispensed Refills Start Date End Date Status nitroglycerin (NITROSTAT) 0.4 MG SUBL 0 08/03/2019 Active Aspirin 81 MG Tablet Take 1 Tablet by mouth in the morning. 0 Active [place]-3 Fatty Acids (FISH OIL) 1200 MG CPDR [...] 06/09/20 20 Coronary artery disease invo lving [place] coronary artery of [place] heart without angina pectoris 09/21/2019 History of coronary artery stent placement 09/21 PAF (paroxysmal atrial fibrillation) 09/21/2019 Atrial flutter 09/21/2019 HTN, goal below 130/80 09/21/2019 Hyperlipidemia with target LDL less than 100 06/2020 documented as of this encounter (statuses as of 01/10/2024) Resolved Problems Problem Noted Date Diagnosed Date Resolved Date Paroxysmal A-fib 05/02/2020 10/04/2023 Overview: Added automatically from request for surgery [id number] documented as of this encounter (statuses as of 01/10/2024) Immunizations Name Administration Dates Next Due COVID-19 mRNA, LNP-s, No Pre serve, 2-Dose Series ([employer]) 07/11/2021,11/27/2020,11/06/2020 Pneumococcal Conjugate Vacc, 13 Valent (Prevnar) [...] Encounter - Monica Mercedes OSA - 01/10/2024 2:32 PM EDT Office visit notes faxed to [facility] [phone] * Telephone Encounter - Huma Garcia OSA - 01/10/2024 1:48 PM EDT Requested Information from caller: Who is calling facility name: [facility] speech Provider patient is established with: Sun What is the concern or issue they are having: reports they need visit notes to go with referral. How long has the issue been going on: n/a Any additional details to add: no Pts phone number for nurse to call back: n/a If forms need to be faxed- Please provide fax number: [phone] * Telephone Encounter - Monica Mercedes OSA - 01/10/2024 10:35 AM EDT Speech pathology referral faxed to [facility] [phone] * Telephone Encounter - Mikal Banegas OSA [...] phone number for nurse to call back: [phone] If forms need to be faxed- Please provide fax number: [phone] documented in this encounter Plan of Treatment Upcoming Encounters Date Type Department Care Team (Late st Contact Info) Description 01/12/2024 11:30 AM EDT Office Visit Cardiology, [facility] [address] [place] [address] Morro Golden DO [address] [place] [address] 03/21/2024 10:30 AM EDT Office Visit Urology [place] Whitaker [address] [place] [address] Louie Hernandez Jr., MD [address] [place] [address] 04/03/2024 3:00 PM EDT Office Visit General Internal Medicine Jian Nguyen [place] 200 [facility] [place] [address] Dominick Peterson MD 200 [facility] [place] [address] 04/05/2024 8:00 AM EDT Telemedicine Sleep Disorders Ctr [facility] [address] [place] [phone] Leatha Quinn, DO [address] [place] [address] 07/09/2024 11:20 AM EDT [facility] [address] [facility] [place] [phone] Juan Carranza MD [address] [place] [address] 08/31/2024 10:00 AM EST Office Visit Neurology [facility] [address] [facility], [place] [phone] Shane Jackson, DO [address] [facility] [place] [id number] Health Maintenance Due Date Last Done Comments [...] and were consensually agreed upon. Care Teams Advertising Executive Relationship Specialty Start Date End Date Dominick Peterson MD 200 [place] [address] PCP - General Internal Medicine 06/14/23 documented as of this encounter
--- OUTSIDE RECORDS SUMMARY | 2024-01-24 10:19 | External Medical Summary | Summary of Care ---
Author Name Unknown Organization [facility] Address [address] [place] [address] Phone [phone] Care Team Providers Care Compactor Driver Name Role Phone Dominick Peterson MD Primary Care Provider + Reason for Referral * Evaluate & Treat - Unlimited Visits (Within 10 days (routine)) - Authorized Specialty Diagnoses / Procedures Referred By Margie perez Referred To Contact Physical Therapy / Physical Medicine And Rehab Diagnoses Parkinson's disease with dyskinesia and fluctuating manifestations (HCC) Unsteady gait Pastora Bai CRNP [address] [place] [address] Referral ID Status Reason Start Date Expiration Date Visits Requested Visits Authorized [id number] Authorized Specialty Services Required 12/26/[phone] Question Answer Referral Priority Within 10 days (routine) Where should this appointment be scheduled? [facility] Reason for Visit * Reason Onset Date Comments Order Request 12/22/2023 Requesting Up da marylou Physical Therapy order Encounter Details Date Type Department Care Team (Late st Contact Info) Description 12/22/2023 Telephone Access Center, [facility] [address] [facility] *DO NOT REMOVE THIS DEPARTMENT* [place] [address] Services, Scheduling [address] [place] [address] Order Request (Requesting Up dated Physica... Allergies Active Allergy Reactions Criticality Noted Date Comments Acetazolamide High 03/26/2022 Other reaction(s): Tachycardia Amlodipine 06/19/2020 documented as of this encounter (statuses as of 01/09/2024) Medications Medication Sig Dispensed Refills Start Date End Date Status nitroglycerin (NITROSTAT) 0.4 MG SUBL 0 9 Active Aspirin 81 MG Tablet Take 1 Tablet by mouth in the morning. 0 Active [place]-3 Fatty Acids (FISH OIL) 1200 MG CPDR [...] 06/09/20 20 Coronary artery disease invo lving [place] coronary artery of [place] heart without angina pectoris 09/21/2019 History of coronary artery stent placement 09/21 PAF (paroxysmal atrial fibrillation) 09/21/2019 Atrial flutter 09/21/2019 HTN, goal below 130/80 09/21/2019 Hyperlipidemia with target LDL less than 100 06/2020 documented as of this encounter (statuses as of 01/09/2024) Resolved Problems Problem Noted Date Diagnosed Date Resolved Date Paroxysmal A-fib 05/02/2020 10/04/2023 Overview: Added automatically from request for surgery [id number] documented as of this encounter (statuses as of 01/09/2024) Immunizations Name Administration Dates Next Due COVID-19 mRNA, LNP-s, No Pre serve, 2-Dose Series ([employer]) 07/11/2021,11/27/2020,11/06/2020 Pneumococcal Conjugate Vacc, 13 Valent (Prevnar) [...] encounter Miscellaneous Notes * Telephone Encounter - Jenna Feliciano OSA - 01/09/2024 2:18 PM EDT Physical Therapy referral successfully faxed to [facility] [phone] * Telephone Encounter - Huma Garcia OSA [...] phone number for nurse to call back: [phone] If forms need to be faxed- Please provide fax number: [phone] * Telephone Encounter - Essence Campbell OSA [...] another message to the pool, update current [facility] Neurology Pool- All messages go through the [facility] Neuro [place]- [id number] Neurology Pool Numbers- [place] and [facility] patients - follow normal process Ops req [facility] Neurology ([place])- [id number] Ops req [place] Neurology ([place] Only)- [id number] Neurosurgery [place] Numbers- [place] patients- follow normal process Ops req Neurosurgery [facility] ([place])- [id number] Ops req Neurosurgery [facility] ([place] Only) [id number] Requested Information from caller: Who is calling facility name[facility] Provider patient is established with: Dr Jackson What is the concern or issue they are having: Requesting an up dated physical therapy referral for pt. How long has the issue been going on: n/a Any additional details to add: no Pts phone number for nurse to call back: [phone] If forms need to be faxed- Please provide fax number: [phone] Please make sure you verify pharmacy for anything medication related. Form to be used for established patients only (not new patients) documented in this encounter Plan of Treatment Upcoming Encounters Date Type Department Care Team (Late st Contact Info) Description 01/12/2024 11:30 AM EDT Office Visit Cardiology, [facility] [address] [place] [address] Morro Golden, [address] [place] [address] 03/21/2024 10:30 AM EDT Office Visit Urology [place] Whitaker [address] [place] [address] Louie Hernandez Jr., MD [address] [facility] [address] 04/03/2024 3:00 PM EDT Office Visit General Internal Medicine [facility] [address] [place] [address] Dominick Peterson MD 200 [place] [address] 04/05/2024 8:00 AM EDT Telemedicine Sleep Disorders Ctr [facility] [address] [place] [phone] Leatha Quinn, [address] [place] [address] 07/09/2024 11:20 AM EDT Telemedicine Neurology, [place] [address] [place] [phone] Juan Carranza MD [address] [place] [address] 08/31/2024 10:00 AM EST Office Visit Neurology Jian Nguyen [place] [address] [place] [address] Shane Jackson, DO [address] [place] [address] Scheduled Referrals Name Type Priority Associated Diagnoses [...] and were consensually agreed upon. Care Teams Compactor Driver Relationship Specialty Start Date End Date Dominick Peterson MD 200 [place] [address] PCP - General Internal Medicine 06/14/23 documented as of this encounter
--- OUTSIDE RECORDS SUMMARY | 2024-01-24 10:20 | External Medical Summary | Summary of Care ---
Author Name Unknown Organization [facility] Address [address] [place] [address] Phone [phone] Care Team Providers Care Lead Oracle Developer Name Role Phone Dominick Peterson MD Primary Care Provider + Encounter Details Date Type Department Care Team (Late st Contact Info) Description 01/02/2024 Result Scan Unspecified Department <No scans attached> Allergies Active Allergy Reactions Criticality Noted Date Comments Acetazolamide High 03/26/2022 Other reaction(s): Tachycardia Amlodipine 06/19/2020 documented as of this encounter (statuses as of 01/04/2024) Medications Medication Sig Dispensed Refills Start Date End Date Status nitroglycerin (NITROSTAT) 0.4 MG SUBL 0 08/03/2019 Active Aspirin 81 MG Tablet Take 1 Tablet by mouth in the morning. 0 Active [place]-3 Fatty Acids (FISH OIL) 1200 MG CPDR [...] AT BEDTIME 90 Tablet 1 12/27/2023 Active documented as of this encounter (statuses as of 01/04/2024) Active Problems Problem Noted Date Diagnosed Date Parkinson's disease 02/16/2023 S/P ablation of atrial fibrillation 06/19/2020 PVC (premature ventricular contraction) 06/09/20 20 Coronary artery disease invo lving [place] coronary artery of [place] heart without angina pectoris 09/21/2019 History of coronary artery stent placement 09/21 PAF (paroxysmal atrial fibrillation) 09/21/2019 Atrial flutter 09/21/2019 HTN, goal below 130/80 09/21/2019 Hyperlipidemia with target LDL less than 100 06/2020 documented as of this encounter (statuses as of 01/04/2024) Resolved Problems Problem Noted Date Diagnosed Date Resolved Date Paroxysmal A-fib 05/02/2020 10/04/2023 Overview: Added automatically from request for surgery [id number] documented as of this encounter (statuses as of 01/04/2024) Immunizations Name Administration Dates Next Due COVID-19 mRNA, LNP-s, No Pre serve, 2-Dose Series (Pfizer) 07/11/2021,11/27/2020,11/06/2020 Pneumococcal Conjugate Vacc, 13 Valent (Prevnar) [...] the money to buy more. Never true 02/16/20 23 Within the past 12 months, t he food you bought just didn't last and you didn't have money to get more. Never true 02/15/2023 Sex and Gender Information Value Date Recorded [...] No 06/19/2020 documented as of this encounter Plan of Treatment Upcoming Encounters Date Type Department Care Team (Late st Contact Info) Description 01/09/2024 11:00 AM EDT Office Visit [facility] [place] [address] [place] [address] Dominick Peterson MD [address] [facility] [place] [address] 01/12/2024 11:30 AM EDT Office Visit Cardiology, [facility] [address] [place] [address] Morro Golden DO [address] [place] [address] 03/21/2024 10:30 AM EDT Office Visit Urology Jamie Whitaker [address] [place] [address] Louie Hernandez Jr., MD [address] [place] [address] 04/03/2024 3:00 PM EDT Office Visit General Internal Medicine [facility] [address] [place] [address] Dominick Peterson MD [address] [place] [address] 07/09/2024 11:20 AM EDT [facility] [address] [place] [id number] Juan Carranza MD [address] [place] [address] 08/31/2024 10:00 AM EST Office Visit Neurology [employer] [address] [facility] [place] [address] Shane Jackson, DO [address] [place] [address] Health Maintenance Due Date Last Done Comments DTaP,Tdap,and Td Vaccines (1 - Tdap) 11/16/1969 AAA Screening 2017 Depression Screening 09/03/2022 09/03/2021 COVID-19 Vaccine (4 - 2022- season) 2023 07/11/2021, 11/27/2020, 11/06/2020 GFR 10/07/2024 10/07/2023, 04/2023, 03/25/2022, Additional history exists Albumin/Creatinine Ratio 02/17/2026 02/17/2023 COLONOSCOPY-EVERY 5 YRS AGES 18-100 11/25/2026 11/25/2021 Pneumococcal Vaccine: 65+ Years Completed 07/20/2019, 07/18/2018 Zoster Vaccines Completed 01/28/2021, 09/02/2020 Colonoscopy Discontinued 11/25/2021 Colorectal Cancer Screening Discontinued Influenza Vaccine (FLU shot) Completed 10/09/2023, 07/09/2020, 07/20/2019, Additional history exists Cologuard Discontinued Fecal Occult Blood Test Discontinued GARDASIL-HPV IMMUNIZATION SERIES Aged Out No longer eligible based on patient's age to complete this topic Hepatitis B Aged Out No longer eligi ble based on patient's age to complete this topic MENINGOCOCCAL (MENACTRA/MENVEO) Aged Out No longer eligible based on patient's age to complete this topic Sigmoidoscopy Discontinued documented as of this encounter Medical Devices Not on filedocumented as of this encounter Procedures Procedure Name Priority Date/Time Associated Diagnosis Comments CARDIAC CATH SCANNED RESULT 01/02/2024 documented in this encounter Results * CARDIAC CATH SCANNED RESULT (01/02/2024) 01/02/2024 No Physician Data Unknown CARD CATH documented in this encounter Advance Directives Latest Code Status on File Code Status Date Activated Date Inactivated Comments Full Code 06/19/2020 12:08 PM 06/20/2020 12:59 PM Thi s order reflects the patients wishes and were consensually agreed upon. Care Teams Lead Oracle Developer Relationship Specialty Start Date End Date Dominick Peterson MD [address] [facility] [place] [address] PCP - General Internal Medicine 06/14/23 documented as of this encounter
--- OUTSIDE RECORDS SUMMARY | 2024-01-24 10:20 | External Medical Summary | Summary of Care ---
Author Name Unknown Organization [facility] Address [address] [place] [address] Phone [phone] Care Team Providers Care Certified Pharmacy Tech Name Role Phone Dominick Peterson MD Primary Care Provider + Reason for Visit * Reason Comments Emergency Department Follow-Up Pt went t o [facility] ER on evening with chest pain, tingling in left arm/hand. Pt states all tests came back negative, EKG looked good, so he didn't stay for observation. Pt has taken nitro and reports feeling a little better Encounter Details Date Type Department Care Team (Late st Contact Info) Description 01/02/2024 11:40 AM EDT Office Visit General Internal Medicine [facility] [address] [place] [address] Dominick Peterson MD [address] [place] [address] Chest pain, unspecified type*; Pain of left upper arm; Coronary artery disease involving [place] coronary artery of [place] heart without angina pectoris Allergies Active Allergy Reactions Criticality Noted Date Comments Acetazolamide High 03/26/2022 Other reaction(s): Tachycardia Amlodipine 06/19/2020 documented as of this encounter (statuses as of 01/02/2024) Medications Medication Sig Dispensed Refills Start Date End Date Status nitroglycerin (NITROSTAT) 0.4 MG SUBL 0 08/03/2019 Active Aspirin 81 MG Tablet Take 1 Tablet by mouth in the morning. 0 Active [place]-3 Fatty Acids (FISH OIL) 1200 MG CPDR [...] tions:Rapid Eye Movement Sleep Behavior Disorder Take 1 [...] AT BEDTIME 90 Tablet 1 12/27/2023 Active Coenzyme Q10 (COQ10) 100 MG CAPS Take 1 Cap by mouth daily. 0 4 Discontinue d(Medicatio n List Clean Up) documented as of this encounter (statuses as of 01/02/2024) Active Problems Problem Noted Date Diagnosed Date Parkinson's disease 02/16/2023 S/P ablation of atrial fibrillation 06/19/2020 PVC (premature ventricular contraction) 06/09/20 Coronary artery disease invo lving [place] coronary artery of [place] heart without angina pectoris 09/21/2019 History of coronary artery stent placement 09/21 PAF (paroxysmal atrial fibrillation) 09/21/2019 Atrial flutter 09/21/2019 HTN, goal below 130/80 09/21/2019 Hyperlipidemia with target LDL less than 100 06/2020 documented as of this encounter (statuses as of 01/02/2024) Resolved Problems Problem Noted Date Diagnosed Date Resolved Date Paroxysmal A-fib 05/02/2020 10/04/2023 Overview: Added automatically from request for surgery [id number] documented as of this encounter (statuses as of 01/02/2024) Immunizations Name Administration Dates Next Due COVID-19 mRNA, LNP-s, No Pre serve, 2-Dose Series ([email or web address]) 07/11/2021,11/27/2020,11/06/2020 Pneumococcal Conjugate Vacc, 13 Valent (Prevnar) [...] Sign Reading Time Taken Comments Blood Pressure 126/60 01/02/2024 11:33 AM EDT Pulse 90 01/02/2024 11:33 AM EDT Temperature 35.6 C (96 F) 01/02/2024 11:33 AM EDT Respiratory Rate - - Oxygen Saturation 95% 01/02/2024 11:33 AM EDT Inhaled Oxygen Concentration - - Weight 82.6 kg (182 lb) 01/02/2024 11:33 AM EDT Height 182.9 cm (6') 01/02/2024 11:33 AM EDT Body Mass Index 24.68 01/02/2024 11:33 AM EDT documented in this encounter Functional [...] Progress Notes * Dominick Peterson MD - 01/02/2024 11:52 AM EDT Chief Complaint Patient presents with Emergency Department Follow-Up Pt went to [facility] on evening with chest pain, tingling in left arm/hand. Pt states all tests came back negative, EKG looked good, so he didn't stay for observation. Pt has taken nitro and reports feeling a little better SUBJECTIVE: Steven Shetty is a 73 year old male with PMH as below who presents for acute. Was at [facility] last for chest pain. It started after stressful issue on computer, wasn't exertion. Pain abated in ER. Had labs, EKG, told ok, declined admission which was advised. He was better on Tuesday to Tuesday, but worse yesterday, had 2 episodes at rest with substernal chest discomfort to jaw/left armwith tingling. NTG helped. Last episode was 40 min ago, again at rest, and then better with SL NTG.He denies cough, sob ,argueta, reflux or food triggers. Last stress 2019. Follows with Dr. Golden at [facility]. Patient Active Problem List Diagnosis Code Coronary artery disease involving [place] coronary artery of [place] heart without angina pectoris I25.10 History of coronary artery stent placement Z95.5 PAF (paroxysmal atrial fibrillation) ([facility]) I48.0 Atrial flutter ([facility]) I48.92 HTN, goal below 130/80 I10 Hyperlipidemia with target LDL less than 100 E78.5 PVC (premature ventricular contraction) I49.3 S/P ablation of atrial fibrillation Z98.890, Z86.79 Parkinson's disease ([facility]) G20.A1 Current Outpatient Medications Medication Sig Dispense Refill nitroglycerin (NITROSTAT) 0.4 MG SUBL Aspirin 81 MG Tablet Take 1 Tablet by mouth in the morning. [place]-3 Fatty Acids (FISH OIL) 1200 MG CPDR [...] and 1 Capsule before bedtime. As needed. valACYclovir HCl 1 GM Oral Tablet (Valtrex) [...] MOUTH EVERYDAY AT BEDTIME 90 Tablet 1 Metamucil 28.3 % Oral Powder (Psyllium) Take by mouth daily . No current facility-administered medications for this visit. Review of patient's allergies indicates: Allergen Reactions Acetazolamide Other reaction(s): Tachycardia Amlodipine Health Maintenance Due Topic Date Due DTaP,Tdap,and Td Vaccines (1 - Tdap) Never done AAA Screening Never done Depression Screening 09/03/2022 COVID-19 Vaccine ( season) 2023 ROS: CONSTITUTIONAL: No change in weight, No weakness, and No fevers, sweats, or chills PULMONARY: No cough, sputum, or hemoptysis, No wheezing, No rales, No shortness of breath, and No recent change in breathing CARDIOVASCULAR: No shortness of breath, No dyspnea on exertion, No orthopnea, No paroxysmal nocturnal dyspnea, No edema, No palpitations, and No syncope ALL OTHER SYSTEMS NEGATIVE I reviewed social, PMH, PSH, and family history and updated where needed. 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 OBJECTIVE: PHYSICAL EXAM: BP 126/60 | Pulse 90 | Temp 35.6 C (96 F) (Tympanic) | Ht 1.829 m (6') | Wt 82.6 kg (182 lb) |SpO2 95% | BMI 24.68 kg/m | BSA 2.05 m General: alert, healthy, and no distress [...] thought, good eye contact, no pressured speech ER note: Patient 73-year-old male with a past medical history of CAD with 2 previous stents who presents ER for chest pain. IV was established blood work was obtained. Labs showed no significant leukocytosis or anemia. BMP along with LFTs bilirubin was unremarkable. Troponin was negative x 2. Lipase was unremarkable. UA was negative. Based on his history with 2 previous stents and presentation with chest pain in combination with arm and jaw pain I recommended admission. Recommended admission and he declined following informed refusal of care. Discussed this at length with both him and his presentat bedside. They expressed understanding. They were discharged following informed refusal of care. Stressed the importance of calling the carpet tile layer first thing tomorrow morning. They expressed understanding. Discussed with Pt concerning signs and symptoms to watch out for. Pt was instructed to follow up with their PCP and discussed with the patient their option to return to the ED at anytime for persistent or worsening symptoms. The appropriate anticipatory guidance and out- patient management, including indications for return to the emergency department, were explained at length to the patient and understood. I reviewed last cbc, bmp ASSESSMENT: R07.9 Chest pain, unspecified type (primary encounter diagnosis) M79.622 Pain of left upper arm I25.10 Coronary artery disease involving [place] coronary artery of [place] heart without angina pectoris PLAN: Chest pain, unspecified type (Primary) Ongoing ,given better with SL NTG, h/o cad, concern for angina Recommended er, they agree, decline ambulance Report called to [facility] Pain of left upper arm Perhaps from above Follow Coronary artery disease involving [place] coronary artery of [place] heart without angina pectoris As above Follow Up: Return if symptoms worsen or fail to improve. Dominick Peterson MD documented in this encounter Nursing Notes * Molly Rizvi MED ASSIST - 01/02/2024 11:37 AM EDT Chief Complaint Patient presents with Emergency Department Follow-Up Pt went to [facility] on evening with chest pain, tingling in left arm/hand. Pt states all tests came back negative, EKG looked good, so he didn't stay for observation. Pt has taken nitro and reports feeling a little better documented in this encounter Plan of Treatment Upcoming Encounters Date Type Department Care Team (Late st Contact Info) Description 01/04/2024 10:00 AM EDT Telemedicine Sleep Disorders Ctr [facility] [place] [address] [place] [address] Leatha Quinn DO [address] [place] [address] 01/09/2024 11:00 AM EDT Office Visit General Internal Medicine [facility] [place] [address] [place], [place] [address] Dominick Peterson MD [address] [place], [place] [address] 01/12/2024 11:30 AM EDT Office Visit Cardiology, [facility] [address] [facility] [place] [address] Morro Golden, [address] [place] [address] 03/21/2024 10:30 AM EDT Office Visit Urology Jamie Whitaker [address] [place] [address] Louie Hernandez Jr., MD [address] [place] [address] 04/03/2024 3:00 PM EDT Office Visit General Internal Medicine [facility] [address] [facility] [address] [place], [place] [address] Dominick Peterson MD [address] [facility] [place], [place] [address] 07/09/2024 11:20 AM EDT [facility] [address] [place] [address] Juan Carranza MD [address], [place] [id number] 08/31/2024 10:00 AM EST Office Visit Neurology [facility] [address] [place], [place] [address] Shane Jackson DO [address] [place] [address] Health Maintenance Due Date Last Done Comments DTaP,Tdap,and Td Vaccines (1 - Tdap) 11/16/1969 AAA Screening 2017 Depression Screening 09/03/2022 09/03/2021 COVID-19 Vaccine (4 - 2023-24 season) 2023 07/11/2021, 11/27/2020, 11/06/2020 GFR 10/07/2024 [...] as of this encounter Visit Diagnoses Diagnosis Chest pain, unspecified type- Primary Pain of left upper arm Pain in limb Coronary artery disease involving [place] coronary artery of [place] heart without angina pectoris documented in this encounter Advance Directives Latest Code Status on File Code Status Date Activated Date Inactivated Comments Full Code 06/19/2020 12:08 PM 06/20/2020 12:59 PM Thi s order reflects the patients wishes and were consensually agreed upon. Care Teams Certified Pharmacy Tech Relationship Specialty Start Date End Date Dominick Peterson MD [address] [place] [address] PCP - General Internal Medicine 06/14/23 documented as of this encounter"
--- OUTSIDE RECORDS SUMMARY | 2024-01-24 10:20 | External Medical Summary | Summary of Care ---
Author Name Unknown Organization [facility] Address [address] [place] [address] Phone [phone] Care Team Providers Care Vp Respiratory Name Role Phone Dominick Peterson MD Primary Care Provider + Reason for Visit * Reason Onset Date Comments Advice 12/30/2023 Chantel Encounter Details Date Type Department Care Team (Late st Contact Info) Description 12/30/2023 Telephone Cardiology, [facility] [address] [place] [address] Morro Golden DO [address] [place] [address] Advice (Chantel) Allergies Active Allergy Reactions Criticality Noted Date Comments Acetazolamide High 03/26/2022 Other reaction(s): Tachycardia Amlodipine 06/19/2020 documented as of this encounter (statuses as of 01/03/2024) Medications Medication Sig Dispensed Refills Start Date End Date Status nitroglycerin (NITROSTAT) 0.4 MG SUBL 0 08/03/2019 Active Aspirin 81 MG Tablet Take 1 Tablet by mouth in the morning. 0 Active [place]-3 Fatty Acids (FISH OIL) 1200 MG CPDR [...] as of this encounter (statuses as of 01/03/2024) Active Problems Problem Noted Date Diagnosed Date Parkinson's disease 02/16/2023 S/P ablation of atrial fibrillation 06/19/2020 PVC (premature ventricular contraction) 06/09/20 20 Coronary artery disease invo lving [place] coronary artery of [place] heart without angina pectoris 09/21/2019 History of coronary artery stent placement 09/21 PAF (paroxysmal atrial fibrillation) 09/21/2019 Atrial flutter 09/21/2019 HTN, goal below 130/80 09/21/2019 Hyperlipidemia with target LDL less than 100 06/2020 documented as of this encounter (statuses as of 01/03/2024) Resolved Problems Problem Noted Date Diagnosed Date Resolved Date Paroxysmal A-fib 05/02/2020 10/04/2023 Overview: Added automatically from request for surgery [id number] documented as of this encounter (statuses as of 01/03/2024) Immunizations Name Administration Dates Next Due COVID-19 mRNA, LNP-s, No Pre serve, 2-Dose Series ([employer]) 07/11/2021,11/27/2020,11/06/2020 Pneumococcal Conjugate Vacc, 13 Valent (Prevnar) [...] encounter Miscellaneous Notes * Telephone Encounter - Morro Golden DO - 01/03/2024 6:48 AM EDT Reviewed ED visit 12/[address] Peterson note from yesterday. Either no note available from ED yesterday or the patient was not seen. In any case, I agree patient should return to the hospital if having more CP. Should also keep appointment to see me next week. * Telephone Encounter - Shira Sagastume CMA - 01/02/2024 10:57 AM EDT Spoke with patient. States he is still feeling "questionable" -- tingling in left hand and some chest tightness -- no SOB; blood pressure and pulse remain elevated. BP reading today 144/80; HR 88 -- "a couple hours" after taking Lisinopril. Reports the aspirin they gave him in the hospital helped with symptoms. Pt states he has also taken nitroglycerin since hospital discharge: Has used nitro 4 doses all together - 1 today approx 20 minutes prior to the call - 2-3 over the weekend that seemed to help Pt seeing Dr. Peterson at 11:25 a.m. * Telephone Encounter - Chen Elmore OSA - 12/30/2023 1:54 PM EDT Person calling: Steven Relationship to patient: pt Number to return call: [phone] Reason for call: pt was in ED. Still having BP issues, would like to speak to a nurse . Current reading 138-78. Pt has appt w/Dr Golden January 11, I added to waitlist Pharmacy: Provider Name:Chantel documented in this encounter Plan of Treatment Upcoming Encounters Date Type Department Care Team (Late st Contact Info) Description 01/04/2024 10:00 AM EDT Telemedicine Sleep Disorders Ctr [facility] [address] [place] [phone] Leatha Quinn, DO [address] [place] [address] 01/09/2024 11:00 AM EDT Office Visit General Internal Medicine [facility] 200 [facility] [place] [address] Dominick Peterson MD 200 [facility] [place] [address] 01/12/2024 11:30 AM EDT Office Visit Cardiology, [facility] [address] [place] [address] Morro Golden, DO [address] [place] [address] 03/21/2024 10:30 AM EDT Office Visit Urology Jamie Whitaker [address] [place] [address] Louie Hernandez Jr., MD [address] [place] [address] 04/03/2024 3:00 PM EDT Office Visit General Internal Medicine [facility] [address] [facility] [place] [address] Dominick Peterson MD [address] [facility] [place] [address] 07/09/2024 11:20 AM EDT [facility] [address] [place] [phone] Juan Carranza MD [address] [place] [address] 08/31/2024 10:00 AM EST Office Visit [facility] [address] [facility] [place] [address] Shane Jackson DO [address] [place], [place] [phone] Health Maintenance Due Date Last Done Comments DTaP,Tdap,and Td Vaccines (1 - Tdap) 11/16/1969 AAA Screening 2017 Depression Screening 09/03/2022 09/03/2021 COVID-19 Vaccine ( - 2022- season) 2023 [...] and were consensually agreed upon. Care Teams Vp Respiratory Relationship Specialty Start Date End Date Dominick Peterson MD [address] [facility] [place] [address] PCP - General Internal Medicine 06/14/23 documented as of this encounter
--- NOTE | 2024-01-24 12:02 | Electrocardiogram Report ---
Test Reason : Blood Pressure : / mmHG Vent. Rate : 051 BPM Atrial Rate : 051 BPM P-R Int : 164 ms QRS Dur : 086 ms QT Int : 442 ms P-R-T Axes : 063 011 039 degrees QTc Int : 407 ms Sinus bradycardia Otherwise normal ECG When compared with ECG of 23-JAN-2024 18:11, (unconfirmed) No significant change was found Confirmed by Danie Botello ([id number]) on 01/24/2024 12:02:09 PM Referred By: REFERRED SELF Confirmed By:Alejandro Botello
--- NOTE | 2024-01-24 12:03 | Electrocardiogram Report ---
Test Reason : Blood Pressure : / mmHG Vent. Rate : 053 BPM Atrial Rate : 053 BPM P-R Int : 170 ms QRS Dur : 084 ms QT Int : 424 ms P-R-T Axes : 056 036 009 degrees QTc Int : 397 ms Sinus bradycardia Otherwise normal ECG When compared with ECG of 23-JAN-2024 16:31, No significant change was found Confirmed by Danie Botello ([id number]) on 01/24/2024 12:03:03 PM Referred By: REFERRED SELF Confirmed By:Alejandro Botello
--- NOTE | 2024-01-24 12:23 | Discharge Summary ---
Date of Service January 24, 2024 Admission HPI Per Admitting Provider 73-year-old male with past medical history significant for CAD s/p stents, hypertension, paroxysmal atrial fibrillation, PVCs, hyperlipidemia, Parkinson disease, comes because of chest pain radiating to his back. Patient has angina. He took 4 nitros at home but the pain did not subside so decided come to ER. In the ER CTA chest was done which is unremarkable. 2 sets of troponin were negative. ER tried to discharge but the patient had another episode of chest pain so we are called for admission. Currently patient is chest pain-free. No shortness of breath. Earlier had a headache but that resolved. Vision is okay. No runny nose or sore throat. No cough. No fevers. Appetite is okay. No nausea. No abdominal pain. Normal bowel and bladder movements. Ambulates okay at home. is in the room. Patient was admitted in December 2023 with chest pain and at time he had cardiac cath which showed multivessel coronary disease and cardiology recommended medical management at that time. Past medical history. As mentioned above. Past surgical history. Atrial fibrillation ablation. Cardiac cath Social history. . Former smoker. Alcohol several times a week. No drug use. Family history. No family history on file Admission Exam Per Admitting Provider General- Not in distress Head- atraumatic Eyes- PERRL. ENT- oropharynx clear Neck- supple, no JVD. Lungs- clear to auscultation, no wheezing or crackles. Heart- regular rhythm; no murmur, no gallop. Abdomen- normal bowel sounds, soft, nontender, no distension. Extremities- no pretibial edema, no erythema seen Neuro- alert, oriented PERRL, EOMI; no facial palsy; no dysarthria; moves extremities. Principal Diagnosis Chest pain, hx of CAD Discharge Exam General- WD/WN M in NAD Head- atraumatic Eyes- PERRL. Neck- supple, no JVD. Lungs- clear to auscultation, no wheezing or crackles. Heart- regular rhythm; no murmur Abdomen- normal bowel sounds, soft, nontender, no distension. Extremities- no pretibial edema, no erythema seen Neuro- alert, oriented PERRL, EOMI; no facial palsy; no dysarthria; moves extremities. Discharge Data Allergies Allergy/AdvReac Type Severity Reaction Status Date / Time acetazolamide AdvReac Severe Tachycardia Verified 11/04/22 10:18 amlodipine AdvReac Severe hypotension Verified 11/04/22 10:18 Consultations 01/23/24 21:09 ED Decision to Admit Stat 01/24/24 08:00 Consult Cardiology Routine Ordered Studies 01/23/24 17:20 CTA chest dissec wo/w con [CT angio chest dissec wo/w con] Stat FINDINGS: CTA: Mild cardiomegaly. Extensive coronary artery calcifications. No pericardial effusion. Unremarkable thoracic aorta without aneurysm or dissection. There is mild thoracic aortic atherosclerosis. No intramural or mediastinal hematoma on the noncontrast study. No pulmonary emboli identified. CT CHEST: Subcentimeter hypodense inferior left thyroid nodule. No lymphadenopathy. Pectus excavatum. Calcified pleural plaques redemonstrated bilaterally. There is no pneumothorax, pleural effusion, airspace consolidation or pulmonary edema. No suspicious pulmonary nodules or masses. Central airways are patent. No acute upper abdominal abnormality. The soft tissues are within normal limits. No acute fracture identified. IMPRESSION: 1. Unremarkable CTA of the chest. No thoracic aortic aneurysm or dissection. 2. No pleural effusion or airspace consolidation. 3. 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 Hospital Course (1) Chest pain: 73-yo M with past medical history significant for CAD s/p stents, hypertension, paroxysmal atrial fibrillation, PVCs, hyperlipidemia, Parkinson disease, comes because of chest pain radiating to his back. Patient has angina. He took 4 nitros at home but the pain did not subside so decided come to ER. In the ER CTA chest was done which is unremarkable. 2 sets of troponin were negative. ER tried to discharge but the patient had another episode of chest pain so we are called for admission. Currently patient is chest pain-free. No shortness of breath. Earlier had a headache but that resolved. Vision is okay. No runny nose or sore throat. No cough. No fevers. Appetite is okay. No nausea. No abdominal pain. Normal bowel and bladder movements. Ambulates okay at home. is in the room. Patient was admitted in December 2023 with chest pain and at time he had cardiac cath which showed multivessel coronary disease and cardiology recommended medical management at that time. Chest pain Was radiating back to the shoulders blades 2 sets of troponin negative CTA chest unremarkable In December 2023 had cardiac cath which showed multiple vessel disease and medical management recommended and if symptoms are refractory " PCI of RCA, +/- FFR of OM 3 could be considered" Per cardiology. Serial cardiac enzymes negative Currently asymptomatic Cardiology consulted - Patient experienced anterior chest tightness as well as a pain between his shoulder blades while sitting nails and a baseboard at his daughter's house. Symptoms were not relieved with nitroglycerin x 4. Serial EKG tracings negative, high-sensitivity troponin levels negative x 3. Workup thus far reassuring especially in light of cardiac catheterization results from last month. I question if the reason why his symptoms were refractory to nitroglycerin were because this was not angina to begin with. We previously discussed adding a long-acting nitroglycerin medication such as isosorbide mononitrate, but the patient and I both had concerns with regards to his risk of orthostasis in the setting of Parkinson's disease and I continue to have such concerns and if the sublingual nitroglycerin did not alleviate his pain, I would anticipate that the addition of isosorbide mononitrate would not change things either. I question if his symptoms yesterday were musculoskeleta l. No further cardiac workup felt to be indicated at this time. Patient stable for discharge from a cardiac perspective. 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 Needs follow-up Total Time Total Time Spent Total Time Spent (In Minutes): 40 Discharge Plan Discharge Items Patient Disposition: Home - Self-Care Reason For Visit: CHEST PAIN, HX OF CAD Discharge Diagnosis: Chest pain, hx of CAD Activity: Per Instructions section Non-emergency contact: Primary Care Provider and Manager Of Production Call non-emergency contact if: you have any medication questions and your symptoms worsen Follow-up/Referrals: Dominick Peterson MD [Primary Care Provider] - (Date & Time 01/27/2024 9:00 AM Provider Tami Escalante MD Department General Internal Medicine [facility] ) Diet: Heart Healthy Addtl Attending Provider Instructions: Follow up with your primary care doctor and medical affairs manager. The appointment with your primary care physician was scheduled for you for 01/27/2024. There were no medication changes made during this hospital stay. Pending Studies at Discharge: No Stand-Alone Forms: My [facility], Smoking Cessation Medications and DC Order Prescriptions: Continued atorvastatin 80 mg tablet 80 mg PO PM Qty: 90 1RF Hold Instructions: Pt. switching to will cardio-requests no more refills psyllium husk [Metamucil] 0.4 gram capsule 0.4 g PO QPM Eliquis 5 mg tablet 5 mg PO BID aspirin [Adult Aspirin Regimen] 81 mg tablet,delayed release (DR/EC) 81 mg PO DAILY valacyclovir 1 gram tablet 2,000 mg PO Q12H PRN (Reason: cold sores) Qty: 30 0RF multivitamin Tablet 1 tab PO QAM glucosamine-chondroitin [Osteo Bi-Flex] 250-200 mg Tablet 2 tab PO QAM omega 7-llo-dey-fish oil [Fish Oil] 1,000 mg (120 mg-180 mg) capsule 2 cap PO QAM lisinopril 10 mg tablet 10 mg PO QAM ibuprofen 400 mg Tablet 400 mg PO Q8H PRN (Reason: Pain) acetaminophen [Tylenol Extra Strength] 500 mg Tablet 1,000 mg PO Q8 PRN (Reason: headache) Qty: 30 0RF carbidopa-levodopa 50-200 mg tablet extended release 1 tab PO QPM melatonin 6 mg PO DAILY carbidopa-levodopa 25-100 mg tablet 1 tab PO TID nitroglycerin 0.4 mg tablet, sublingual 0.4 mg sublingual UD PRN (Reason: Chest Pain) Qty: 30 0RF Rx Instructions: do not exceed 3 doses per episode buspirone 5 mg tablet 5 mg PO BID sertraline 50 mg tablet 25 mg PO DAILY Discharge Orders: Discharge Order (Routine); Ordered 01/24/24 Ordered By: Clive Black/Other Patient Handouts: Nitroglycerin Fast Acting Dc, Identifying Your Heart Risks Admission Data Admit Date/Time: 01/24/24 01:00 Attending Provider: Clive Higgins Admit Provider: Jeffrey Patrick Primary Care Provider: Dominick Peterson Other Providers: Jeffrey Patrick; Rakan Avilez Other Interventions: Discharge Summary Assessment (RN) Last Done: 01/24/24 12:31
[2024-01-24] MEDS ORDERED: CARBIDOPA/LEVODOPA 50/200MG EXT REL TAB PO SCH (21:00)
[2024-01-24] MEDS ORDERED: PSYLLIUM or GUAR GUM FIBER 4GM PACKET PO SCH (21:00)
[2024-01-24] MEDS ORDERED: ATORVASTATIN 40 MG TAB PO SCH (21:00)
== END 2024-01-24 13:00 | disposition home or self-care (01) | DRG 303 ==
LOC: ED 16:18 → 1E 01-24 01:00